=== PATIENT | male | born 1965 | race Caucasian/White ===

== ENCOUNTER 2017-07-31 10:13 | Inpatient (IN) | payer SELFPAY ==
[~2017-07-31] VITALS: Ht 188 cm; Wt 103.0 kg
[~2017-07-31 10:13] MED LIST: 1-ME1LIQ PO; AMLO10TA2 PO; ASCO500C PO; ATOR80TA41 PO; BENA25TA8 PO; GLUCTES27 XX; LEVO75TA3 PO; METF500T PO; MISC1CAP4; MULTCAP14 PO; NAPR250T57 PO; OMEG100037 PO; OMEP20TA PO; STOO100T; VENTAER INH; VITA250L PO
[2017-07-31 10:16] VITALS: BP 173/82; PULSE 102; RESP 17; TEMP 98.2; O2SAT 98
[2017-07-31] MEDS ORDERED: CLINDAMYCIN 600 MG/NS PREMIX 50 ML IV ONE (15:30)
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
--- NOTE | 2017-07-31 16:01 | RADRPT ---
EXAM DATE/TIME: 07/31/2017 15:40 [facility] COMPARISON: No previous studies available for comparison. INDICATIONS : Foot. MEDICAL HISTORY : None. SURGICAL HISTORY : None. ENCOUNTER: Initial ACUITY: 4 - 6 days PAIN SCORE: 5/10 LOCATION: Left Foot. FINDINGS: Three view examination of the left foot demonstrates no soft tissue swelling, dislocation, or fractur e. The tarsal bones appear intact. There are degenerative changes of the first metatarsal phalangea l joint. There are degenerative changes involving the midtarsal bones. There is a mild soft tissue sw elling. CONCLUSION: No acute fracture or joint dislocation. Primary degenerative changes with mild soft tissue swelling. Agus Esparza MD on July 31, 2017 at 15:58 Board Certified Radiologist. This report was verified electronically.
[2017-07-31 16:41] LABS: AUTOMATED NEUTROPHIL # 8.3 TH/MM3 (1.8-7.7); BASOPHIL % 0.2 % (0.0-2.0); EOSINOPHIL # 0.1 TH/MM3 (0-0.4); EOSINOPHIL % 1.1 % (0.0-4.0); HEMATOCRIT 41.1 % (39.0-51.0); HEMOGLOBIN 13.9 GM/DL (13.0-17.0); LYMPH % 10.8 % (9.0-44.0); LYMPHOCYTE # 1.2 TH/MM3 (1.0-4.8); MEAN CELL VOLUME 93.6 FL (80.0-100.0); MEAN CORPUSCULAR HEMOGLOBIN 31.7 PG (27.0-34.0); MEAN CORPUSCULAR HGB CONC 33.9 % (32.0-36.0); MONO % 13.2 % (0.0-8.0); MONOCYTE # 1.5 TH/MM3 (0-0.9); NEUT % 74.7 % (16.0-70.0); PLATELET COUNT 96 TH/MM3 (150-450); RED BLOOD COUNT 4.39 MIL/MM3 (4.50-5.90); RED CELL DISTRIBUTION WIDTH 14.6 % (11.6-17.2); WHITE BLOOD COUNT 11.2 TH/MM3 (4.0-11.0)
[2017-07-31 17:09] LABS: ALKALINE PHOSPHATASE 126 U/L (45-117); TOTAL BILIRUBIN ADULT 1.4 MG/DL (0.2-1.0); TOTAL PROTEIN 8.7 GM/DL (6.4-8.2)
[2017-07-31 17:21] LABS: ALBUMIN 3.6 GM/DL (3.4-5.0); ALT (GPT) 92 U/L (12-78); AST (GOT) 114 U/L (15-37); BICARBONATE 22.6 MEQ/L (21.0-32.0); BLOOD UREA NITROGEN 10 MG/DL (7-18); CALCIUM 8.6 MG/DL (8.5-10.1); CHLORIDE 101 MEQ/L (98-107); CREATININE 1.29 MG/DL (0.60-1.30); GLOMERULAR FILTRATION RATE 58 ML/MIN (>89); GLUCOSE,RANDOM 103 MG/DL (74-106); SODIUM (NA) 134 MEQ/L (136-145)
[2017-07-31 17:28] VITALS: O2SAT 97
[2017-07-31 17:33] VITALS: BP 136/84; PULSE 83; RESP 16; O2SAT 97
[2017-07-31] MEDS ORDERED: GADODIAMIDE PF 287 MG/ML 5 ML VIAL (for RAD MRI) IVCONTRAST ONE (17:59)
[2017-07-31] MEDS ORDERED: NALOXONE HCL 0.4 MG/ML AMP IV PUSH PRN (18:15)
[2017-07-31] MEDS ORDERED: LACTULOSE SYRUP 20 GM/30 ML CUP PO PRN (18:15)
[2017-07-31] MEDS ORDERED: SENNOSIDES 8.6 MG TAB PO PRN (18:15)
[2017-07-31] MEDS ORDERED: ONDANSETRON HCL 4 MG/2 ML VIAL IVP PRN (18:15)
[2017-07-31] MEDS ORDERED: MAGNESIUM HYDROXIDE SUSP 30 ML CUP PO PRN (18:15)
[2017-07-31] MEDS ORDERED: SODIUM CHLORIDE 0.9% FLUSH 10 ML FLUSH IV FLUSH PRN (18:15)
[2017-07-31] MEDS ORDERED: BISACODYL 10 MG SUPP RECTAL PRN (18:15)
[2017-07-31] MEDS: DOCUSATE SODIUM 50 MG/SENNA 8.6 MG TAB PO SCH (20:04)
[2017-07-31] MEDS: SODIUM CHLORIDE 0.9% FLUSH 10 ML FLUSH IV FLUSH SCH (20:05)
[2017-07-31 20:36] VITALS: BP 172/81; PULSE 88; RESP 20; O2SAT 97
[2017-07-31] MEDS ORDERED: DEXTROSE 50% IN WATER 50 ML VIAL(D50) IV PUSH PRN (21:15)
[2017-07-31] MEDS: THIAMINE HCL 100 MG TAB PO SCH (21:15)
[2017-07-31] MEDS ORDERED: LORazepam 2 MG TAB PO PRN (21:15)
[2017-07-31] MEDS ORDERED: GLUCAGON 1 MG/ML VIAL OTHER PRN (21:15)
[2017-07-31] MEDS ORDERED: FLUMAZENIL 0.5 MG/5 ML VIAL IV PUSH PRN (21:15)
[2017-07-31] MEDS ORDERED: LORazepam 2 MG/ML VIAL IV PUSH PRN ×4 (21:15)
[2017-07-31] MEDS ORDERED: LORazepam 1 MG TAB PO PRN (21:15)
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
[2017-07-31] MEDS ORDERED: CLINDAMYCIN 600 MG/NS 100 ML IV SCH ×2 (22:00)
[2017-07-31] MEDS ORDERED: CLINDAMYCIN 600 MG/NS PREMIX 50 ML IV SCH (22:00)
--- NOTE | 2017-07-31 23:25 | RADRPT ---
EXAM DATE/TIME: 07/31/2017 22:01 [facility] COMPARISON: No previous studies available for comparison. INDICATIONS : Osteomyelitis. Left foot ulcer by second and third distal MTPJ. CONTRAST: 20 cc Omniscan (gadodiamide) IV MEDICAL HISTORY : Hypertension. Diabetes mellitus type 2. SURGICAL HISTORY : Right ankle sx, Surgery. to testicles. ENCOUNTER: Initial ACUITY: 3 day PAIN SCORE: 0/10 LOCATION: Left foot ulcer by second and third distal MTPJ. TECHNIQUE: Multiplanar, multisequence MRI examination was performed without contrast and after the intravenous a dministration of gadolinium. FINDINGS: There is soft tissue induration of the forefoot, especially around the second and third metatarsophal angeal joints. Effusions and synovitis with synovial enhancement seen of the second and third metatar sophalangeal joints which certainly could be changes of early septic arthropathy. However, I don't se e any evidence of osteomyelitis of the associated bones. A mildly organized fluid collection is seen in between the next of the second and third metatarsals, measures approximately 9 x 9 mm in greatest transaxial dimension and 18 mm and proximal to distal length. There is moderate to severe osteoarthritis of the first metatarsophalangeal joint and sesamoids CONCLUSION: 1. Soft tissue ulceration plantar to the second and third metatarsophalangeal joints. There is a 9 x 9 x 18 mm abscess in between the distal second and third metatarsals and suspected early septic arthr opathy of the second and third metatarsophalangeal joints. However, no evidence of osteomyelitis at t his time. 2. There is chronic appearing arthropathy of the first metatarsophalangeal joint and sesamoids, also without definite osteomyelitis. Cecilio Salter MD on July 31, 2017 at 23:18 Board Certified Radiologist. This report was verified electronically.
[2017-08-01] VITALS (8 sets, daily range): BP systolic 147–192; BP diastolic 83–100; PULSE 73–88; RESP 16–20; TEMP 97.9–98.9; O2SAT 96–98
[2017-08-01] MEDS: CLINDAMYCIN 600 MG/NS 100 ML IV SCH ×6 (02:11→14:05)
[2017-08-01] MEDS: SODIUM CHLOR 0.9% 1000 ML INJ 1,000 ML IV SCH ×3 (02:12→21:05)
[2017-08-01] MEDS: INSULIN ASPART SUPPLEMENTAL SCALE SQ SCH ×4 (08:00→21:00)
[2017-08-01] MEDS: DOCUSATE SODIUM 50 MG/SENNA 8.6 MG TAB PO SCH ×2 (09:00→21:31)
[2017-08-01] MEDS: SODIUM CHLORIDE 0.9% FLUSH 10 ML FLUSH IV FLUSH SCH ×2 (09:00→21:32)
[2017-08-01] MEDS: THIAMINE HCL 100 MG TAB PO SCH (09:29)
[2017-08-01 09:55] LABS: AUTOMATED NEUTROPHIL # 4.5 TH/MM3 (1.8-7.7); BASOPHIL % 0.1 % (0.0-2.0); EOSINOPHIL # 0.1 TH/MM3 (0-0.4); EOSINOPHIL % 2.2 % (0.0-4.0); HEMATOCRIT 37.5 % (39.0-51.0); HEMOGLOBIN 12.5 GM/DL (13.0-17.0); LYMPH % 18.5 % (9.0-44.0); LYMPHOCYTE # 1.3 TH/MM3 (1.0-4.8); MEAN CELL VOLUME 94.3 FL (80.0-100.0); MEAN CORPUSCULAR HEMOGLOBIN 31.5 PG (27.0-34.0); MEAN CORPUSCULAR HGB CONC 33.4 % (32.0-36.0); MEAN PLATELET VOLUME 8.9 FL (7.0-11.0); MONO % 13.6 % (0.0-8.0); MONOCYTE # 0.9 TH/MM3 (0-0.9); NEUT % 65.6 % (16.0-70.0); PLATELET COUNT 86 TH/MM3 (150-450); RED BLOOD COUNT 3.98 MIL/MM3 (4.50-5.90); RED CELL DISTRIBUTION WIDTH 14.8 % (11.6-17.2); WHITE BLOOD COUNT 6.8 TH/MM3 (4.0-11.0)
[2017-08-01] MEDS ORDERED: INFLUENZA VIRUS VACCINE (QUADRIVALENT) 0.5 ML SYR IM ONE (10:00)
[2017-08-01] MEDS ORDERED: PNEUMOCOCCAL POLYVALENT INJ 25 MCG/0.5 ML SYR IM ONE (10:00)
[2017-08-01 10:22] LABS: ALBUMIN 3.3 GM/DL (3.4-5.0); AST (GOT) 82 U/L (15-37); BICARBONATE 27.4 MEQ/L (21.0-32.0); BLOOD UREA NITROGEN 17 MG/DL (7-18); CALCIUM 8.3 MG/DL (8.5-10.1); CHLORIDE 103 MEQ/L (98-107); CREATININE 1.28 MG/DL (0.60-1.30); GLOMERULAR FILTRATION RATE 59 ML/MIN (>89); GLUCOSE,RANDOM 92 MG/DL (74-106); SODIUM (NA) 138 MEQ/L (136-145)
[2017-08-01 10:24] LABS: ALT (GPT) 74 U/L (12-78)
[2017-08-01 10:25] LABS: ALKALINE PHOSPHATASE 108 U/L (45-117); TOTAL BILIRUBIN ADULT 1.2 MG/DL (0.2-1.0); TOTAL PROTEIN 7.6 GM/DL (6.4-8.2)
[2017-08-01] MEDS ORDERED: VANCOMYCIN INJ 1,000 MG in SODIUM CHLOR 0.9% 250 ML INJ 250 ML IV SCH (16:15)
[2017-08-01] MEDS ORDERED: Vancomycin Consult Pharmacy 1 EA OTHER SCH (16:15)
[2017-08-01 16:19] LABS: HEMOGLOBIN A1C 5.5 % (4.3-6.0)
--- NOTE | 2017-08-01 16:19 | HHI.PR ---
Subjective Remarks Patient says he is feeling well. He has neuropathy and cannot feel his feet. He reports that redness is slightly better than yesterday. Denies any chest pain or shortness of breath Objective Vital Signs Date Time Temp Pulse Resp B/P (MAP) Pulse Ox O2 Delivery O2 Flow Rate FiO2 08/01/17 12:27 98.7 77 18 158/94 (115) 97 08/01/17 08:27 97.9 75 18 147/85 (105) 98 08/01/17 03:57 98.1 80 16 156/84 (108) 98 08/01/17 03:57 98.1 81 16 156/ 98 08/01/17 00:11 98.9 88 20 192/95 (127) 96 07/31/17 20:36 88 20 172/81 (111) 97 07/31/17 19:39 07/31/17 17:33 83 16 136/84 (101) 97 Room Air 07/31/17 17:28 97 Room Air I/O 07/31/17 07/31/17 07/31/17 08/01/17 08/01/17 08/01/17 07:00 15:00 23:00 07:00 15:00 23:00 Intake Total 250 ml 104 ml Output Total 800 ml Balance 250 ml -696 ml Intake Oral 250 ml IV Total 104 ml Output Urine Total 800 ml Result Diagram: 08/01/17 0755 08/01/17 0755 Imaging Last Impressions Foot X-Ray 07/31/17 1529 Signed Impressions: Service Date/Time: July 15:40 - CONCLUSION: No acute fracture or joint dislocation. Primary degenerative changes with mild soft tissue swelling. Agus Esparza MD Foot MRI 07/31/17 0000 Signed Impressions: Service Date/Time: July 22:01 - CONCLUSION: 1. Soft tissue ulceration plantar to the second and third metatarsophalangeal joints. There is a 9 x 9 x 18 mm abscess in between the distal second and third metatarsals and suspected early septic arthropathy of the second and third metatarsophalangeal joints. However, no evidence of osteomyelitis at this time. 2. There is chronic appearing arthropathy of the first metatarsophalangeal joint and sesamoids, also without definite osteomyelitis. Cecilio Salter MD Objective Remarks GENERAL: Sitting up in bed. Appears comfortable. Alert and oriented 3. SKIN: Warm and dry. HEAD: Normocephalic. EYES: No scleral icterus. No injection or drainage. NECK: Supple, trachea midline. No JVD. CARDIOVASCULAR: Regular rate and rhythm without murmurs, gallops, or rubs. RESPIRATORY: Breath sounds equal bilaterally. No accessory muscle use. GASTROINTESTINAL: Abdomen soft, non-tender, nondistended. MUSCULOSKELETAL: No cyanosis, or edema. Right foot with erythema over the dorsum. Small punctate wound over the ball the left foot without surrounding erythema BACK: Nontender without obvious deformity. No CVA tenderness. A/P Assessment and Plan 52-year-old male with a history of diabetes, asthma, gout, hypertension and hypothyroidism presented to the ED with complaints of left foot swelling and redness for the past 3 days. //Cellulitis, left foot Foot x-ray reviewed and shows mild soft tissue swelling -Consult podiatry for assistance -IV antibiotics: Clindamycin -Nothing by mouth after midnight -MRI left foot ordered to rule out osteo, reviewed and shows soft tissue ulceration plantar to the second and third metatarsal joints 9 x 9 x 18 mm abscess in between the distal second and third metatarsals suspected for early septic arthropathy. No evidence of osteo-at this time -IVF for hydration = Evidence of septic arthropathy on MRI. Patient was on clindamycin. Will discontinue clindamycin, start on vancomycin and Zosyn to cover anaerobes, Pseudomonas, MRSA. Pending podiatry consultation. //Transaminitis, likely secondary to alcohol dependence -Cont IVF -CMP in am, trend //Diabetes, chronic -Accu-Cheks with SSI -A1c ordered -Hold home by mouth medication at this time ///Hypertension, chronic -Resumed home medications once med rec is reconciled, monitor vitals -Vasotec when necessary //Hypothyroidism, chronic -Continue home medications once med rec is reconciled -Consult case management for medication assistance //Alcohol dependence/abuse -[employer] protocol -Thiamine daily -Encouraged to quit DVT prophylaxis: SCDs Discharge Planning Pending podiatry evaluation. Brandan Márquez MD Aug 01, 2017 16:19
[2017-08-01] MEDS: ENALAPRILAT 1.25 MG/ML VIAL IV PUSH PRN (16:41)
[2017-08-01] MEDS: PIPERACIL-TAZO 4.5 GM PREMIX 100 ML IV SCH ×2 (17:02→21:33)
[2017-08-01] MEDS: VANCOMYCIN 1,500 MG/NS 500 ML IV SCH ×2 (17:28)
--- NOTE | 2017-08-01 19:54 | MB ---
cc: Jyoti Rolon DPM DATE: 08/01/2017 CHIEF COMPLAINT: Left foot infection. HISTORY OF PRESENT ILLNESS: Mr. Balbuena is a 52-year-old male patient with history of diabetes and diabetic neuropathy. He complains of left foot swelling and redness for approximately 4 days. He believes he may have stepped on a nail in his garage, but is not certain. He is uncontrolled with his diabetes and noncompliant. PAST MEDICAL HISTORY: Includes diabetes, asthma, gout, hypertension, and hypothyroidism. PAST SURGICAL HISTORY: Right ankle ORIF and testicle repair. MEDICATIONS: Please see list. ALLERGIES: NO KNOWN DRUG ALLERGIES. SOCIAL HISTORY: The patient lives at home alone. Recently . Drinks daily, but light and denies any tobacco or drug abuse. PHYSICAL EXAMINATION: VITAL SIGNS: Temperature is 98.6, T-max 98.9, pulse 79, respiratory rate 18, blood pressure 176/96, O2 is 98% O2 on room air. MUSCULOSKELETAL: The patient has palpable, but diminished DP and PT pulses. Capillary refill time less than 3 seconds. Gross sensation severely diminished. The right foot is unremarkable. The left foot is erythematous on the dorsal aspect just distal to the ankle joint. There is a superficial bulla on the dorsal aspect of the foot. On the plantar aspect of the second interspace, there is a puncture wound, which does probe into the second interspace to the dorsal aspect. PROCEDURE: The patient's foot was cleansed and draped in a standard manner and a 15 blade was used to debride the hypertrophic tissue from the plantar aspect of the foot revealing a punctate-appearing wound and a 15 blade was used to slightly elongate the wound both proximal and distal. Hemostats were used to dilate the wound and allow for drainage. There was a slight amount of purulent drainage in the beginning, but despite deeper probing and dilation of the ulceration, minimal purulence was expressed. There did not appear to be any other tracking. There was no exposed bone and no reason to warrant opening the second and third MPJ capsules. The area was flushed with copious amounts of sterile saline and packed with half-inch plain packing and a dressing of 4 x 4s and Nile bandage were applied. LABORATORY DATA: White count is 6.8, down from 11.2 on admission; hemoglobin 12.5; hematocrit 37.5; platelets 86. Sodium 138, potassium 4.1, chloride 103, carbon dioxide 27.4, BUN 17. A1c is pending. Blood cultures negative x 1 day. Wound cultures showed Staph and Gram-negative rods. Cultures and sensitivities are pending. IMAGING STUDIES: X-rays are negative for any gas in the soft tissue or signs of cortical erosion. MRI shows a focal abscess in the second interspace and a questionable septic arthropathy of the second and third MPJs. ASSESSMENT AND PLAN: 1. Left foot abscess, status post bedside incision and drainage. - Continue IV antibiotics. - Daily flush and pack. - If cellulitis does not resolve within the next 48 hours, the patient may require more aggressive intervention. - Final cultures are pending. - Heel weightbearing in a surgical shoe. - We will continue to monitor closely the patient while in-house. Thank you for this consultation. YUNIOR Cunningham/CHRISTINA , 06:39 PM , 07:53 PM LINUS
[2017-08-02 03:28] VITALS: BP 168/94; PULSE 79; RESP 16; TEMP 97.8; O2SAT 97
[2017-08-02] MEDS: PIPERACIL-TAZO 4.5 GM PREMIX 100 ML IV SCH ×3 (05:13→17:00)
[2017-08-02 07:29] VITALS: BP 172/88; PULSE 76; RESP 18; TEMP 98.2; O2SAT 96
[2017-08-02] MEDS: INSULIN ASPART SUPPLEMENTAL SCALE SQ SCH ×4 (08:00→21:00)
[2017-08-02] MEDS: DOCUSATE SODIUM 50 MG/SENNA 8.6 MG TAB PO SCH ×2 (09:00→21:29)
[2017-08-02] MEDS: SODIUM CHLORIDE 0.9% FLUSH 10 ML FLUSH IV FLUSH SCH ×2 (09:00→21:00)
[2017-08-02] MEDS: VANCOMYCIN 1,500 MG/NS 500 ML IV SCH ×4 (09:13→18:00)
[2017-08-02] MEDS: THIAMINE HCL 100 MG TAB PO SCH (09:13)
[2017-08-02] MEDS: SODIUM CHLOR 0.9% 1000 ML INJ 1,000 ML IV SCH (09:14)
[2017-08-02] MEDS: ENALAPRILAT 1.25 MG/ML VIAL IV PUSH PRN ×2 (09:14→18:18)
[2017-08-02 13:21] VITALS: BP 146/72; PULSE 81; RESP 18; TEMP 98.2; O2SAT 95
--- NOTE | 2017-08-02 14:29 | PD.CONS ---
History of Present Illness Service Infectious disease Consult Requested By Dr. Márquez Reason for Consult Evaluate patient with foot infection Primary Care Physician No Primary Care Physician Diagnoses: History of Present Illness Patient seen and examined. Records reviewed. Patient is a 52-year-old male, with known diabetes, and some underlying neuropathy, admitted to the hospital for evaluation of redness and swelling on his left foot. Patient apparently stepped on a school and sustained a wound on the plantar aspect of his foot. He didn't realize it until about several hours later when he noted some blood on the floor when he was in the bathroom. He cleaned it and did some local wound care. The following day he started noticing redness and later on pain. Pain has improved, but the redness got worse as well as the swelling so he patient to the hospital for further evaluation and treatment. He denies any fever or chills or sweats. Patient has a chronic cough related to his asthma. No nausea or vomiting or any urinary complaints. Since admission patient has not been febrile. His initial WBC is 11,000, and it's down to normal. MRI of the foot showed an abscess on the plantar aspect of the foot, and some early changes of possible septic joint at the second and third at the tarsal joint. Podiatry saw the patient and did bedside I and D of the abscess on the foot. There was a wound culture on admission that is growing MSSA and Leclercia. Pain currently is under control. Infectious disease consultation has been requested to evaluate the patient for possible septic joint in the left foot. Review of Systems Constitutional: DENIES: Fever, Chills, Night Sweats Eyes: DENIES: Eye pain Ears, nose, mouth, throat: COMPLAINS OF: Throat pain, DENIES: Nasal discharge, Oral lesions, Hoarseness, Ear Pain, Sinus Pain Respiratory: COMPLAINS OF: Cough, Shortness of breath, DENIES: Sputum production Cardiovascular: DENIES: Chest pain, Palpitations, Syncope, Dyspnea on Exertion Gastrointestinal: DENIES: Abdominal pain, Diarrhea, Nausea, Vomiting, Difficulty Swallowing Genitourinary: DENIES: Urgency, Hematuria, Dysuria Musculoskeletal: COMPLAINS OF: Joint pain, Joint Swelling Integumentary: DENIES: Pruritus, Rash Hematologic/lymphatic: DENIES: Lymphadenopathy Neurologic: DENIES: Localized weakness Psychiatric: DENIES: Hallucinations Past Family Social History Allergies: Coded Allergies: No Known Allergies (Verified Allergy, Unknown, 3/29/18) Past Medical History DM Diabetic neuropathy asthma HTN Hypothyroid Gout Past Surgical History right tib fib repair testicle repair Active Ordered Medications Current Medications Medications (Trade) Dose Ordered Sig/Richard Route Start Time Stop Time Status Last Admin (NS Flush) 2 ml UNSCH PRN IV FLUSH 07/31/17 18:15 (NS Flush) 2 ml BID IV FLUSH 07/31/17 21:00 08/01/17 21:32 (Zofran Inj) 4 mg Q6H PRN IVP 07/31/17 18:15 (Narcan Inj) 0.4 mg UNSCH PRN IV PUSH 07/31/17 18:15 (Rivka-Colace) 1 tab BID PO 07/31/17 21:00 08/01/17 21:31 (Milk Of Magnesia Liq) 30 ml Q12H PRN PO 07/31/17 18:15 (Senokot) 17.2 mg Q12H PRN PO 07/31/17 18:15 (Dulcolax Supp) 10 mg DAILY PRN RECTAL 07/31/17 18:15 (Lactulose Liq) 30 ml DAILY PRN PO 07/31/17 18:15 (D50w (Vial) Inj) 50 ml UNSCH PRN IV PUSH 07/31/17 21:15 (Glucagon Inj) 1 mg UNSCH PRN OTHER 07/31/17 21:15 (NovoLOG SUPPLEMENTAL SCALE) 1 ACHS SLIDING SCALE SQ 08/01/17 08:00 (Romazicon Inj) 0.2 mg Q1M PRN IV PUSH 07/31/17 21:15 (Ativan) 1 mg Q4H PRN PO 07/31/17 21:15 (Ativan Inj) 1 mg Q4H PRN IV PUSH 07/31/17 21:15 (Ativan) 2 mg Q2H PRN PO 07/31/17 21:15 (Ativan Inj) 2 mg Q2H PRN IV PUSH 07/31/17 21:15 (Ativan Inj) 2 mg Q1H PRN IV PUSH 07/31/17 21:15 (Ativan Inj) 2 mg Q15M PRN IV PUSH 07/31/17 21:15 (Vitamin B1) 100 mg DAILY PO 07/31/17 21:15 3/31/18 09:13 Sodium Chloride 1,000 ml @ 84 mls/hr [id number] IV 07/31/17 21:15 08/02/17 09:14 (Vasotec Inj) 1.25 mg Q6H PRN IV PUSH 08/01/17 00:00 08/02/17 09:14 Piperacillin Sod/ Tazobactam Sod 100 ml @ 200 mls/hr Q6H IV 08/01/17 17:00 08/02/17 11:48 Pharmacy Profile Note 0 ml @ 0 mls/hr UNSCH OTHER 08/01/17 16:15 Vancomycin HCl 1500 mg/Sodium Chloride 515 ml @ 257.5 mls/ hr Q12H IV 08/01/17 18:00 08/02/17 09:13 Miscellaneous Information SPECIFIC LAB TO BE [facility]IRA... ONCE ONCE .XX 08/03/17 05:45 08/03/17 05:46 (Ultram) 50 mg Q4H PRN PO 08/01/17 20:30 Family History Father has asthma Social History Tobacco use: Denies Alcohol use: 3-4 beers a day Illicit drug use: Denies Physical Exam Vital Signs Vital Signs Date Time Temp Pulse Resp B/P (MAP) Pulse Ox O2 Delivery O2 Flow Rate FiO2 08/02/17 13:21 98.2 81 18 146/72 (96) 95 08/02/17 07:29 98.2 76 18 172/88 (116) 96 08/02/17 03:28 97.8 79 16 168/94 (118) 97 08/01/17 23:25 98.9 73 20 161/88 (112) 98 08/01/17 21:00 98.1 75 20 160/83 (108) 98 08/01/17 17:55 176/96 (122) 08/01/17 16:30 98.6 79 18 177/100 (125) 98 Physical Exam GENERAL: Patient is a well-nourished, well-developed male, awake and alert, not in respiratory distress. SKIN: Cool and dry. No generalized rash, no ecchymoses and no evidence of embolic lesions. HEAD: Atraumatic. Normocephalic. No temporal wasting, or tenderness. EYES: [place] conjunctiva. No petechia or hemorrhage. Pupils equal, round and reactive to light. Extraocular movements full and intact. No scleral icterus. No injection or drainage. EARS, NOSE AND THROAT: Nose without bleeding or purulent nasal discharge. No sinus tenderness. Mucous membranes pink and moist. No oral lesions noted. No exudate. No oral thrush. NECK: Trachea midline. Supple and not tender, no meningeal signs CARDIOVASCULAR: Regular rate and rhythm. No murmurs, rubs or gallops heard RESPIRATORY: Clear to auscultation. Breath sounds equal bilaterally. No rales , wheezing or rhonchi ABDOMEN: Soft, non-tender, nondistended. Bowel sounds present and normoactive. No guarding. No rebound. No organomegaly. EXTREMITIES: No clubbing, cyanosis, or edema. There is a dry intact dressing to his L foot and distal leg. No lymphangitis seen in upper leg and thigh. No calf tenderness. Well perfused and warm. NEUROLOGICAL: Awake and alert. Cranial nerves grossly intact. Motor grossly within normal limits. PSYCHIATRIC: Normal affect, calm and cooperative. LINE: No evidence of infection Laboratory Date/Time Source Procedure Growth Status 07/31/17 15:52 Blood Peripheral Aerobic Blood Culture - Preliminary NO GROWTH IN 2 DAYS Resulted 07/31/17 15:52 Blood Peripheral Anaerobic Blood Culture - Preliminary NO GROWTH IN 2 DAYS Resulted 07/31/17 15:47 Wound Foot Gram Stain - Final Complete 07/31/17 15:47 Wound Culture - Final Staphylococcus Aureus Leclercia Adecarboxylata Complete Result Diagram: 08/01/17 0755 08/01/17 0755 Imaging RADIOLOGY STUDIES/FILMS REVIEWED Last Impressions Foot X-Ray 07/31/17 1529 Signed Impressions: Service Date/Time: July 15:40 - CONCLUSION: No acute fracture or joint dislocation. Primary degenerative changes with mild soft tissue swelling. Agus Esparza MD Foot MRI 07/31/17 0000 Signed Impressions: Service Date/Time: July 22:01 - CONCLUSION: 1. Soft tissue ulceration plantar to the second and third metatarsophalangeal joints. There is a 9 x 9 x 18 mm abscess in between the distal second and third metatarsals and suspected early septic arthropathy of the second and third metatarsophalangeal joints. However, no evidence of osteomyelitis at this time. 2. There is chronic appearing arthropathy of the first metatarsophalangeal joint and sesamoids, also without definite osteomyelitis. Cecilio Salter MD Assessment and Plan Assessment and Plan IMPRESSION L foot infection, with cellulitis and plantar abscess, S/P I and D - ?septic joint, early 2nd and 3rd MT DM Mild elevation LFT RECOMMENDATION Change Abx to Rocephin IV amd po Flagyl Podiatry to change dressing today - will examine foot when ok with podiatry Follow new C/S (?more C/S from bedside debridement?) Monitor progress Will determine course of RX once work-up completed I will follow along with you Thank you for this consultation Discussed Condition With Explained plan to the patient Chantal Castillo MD Aug 02, 2017 14:29
[2017-08-02 17:32] VITALS: BP 172/92; PULSE 77; RESP 18; TEMP 98.5; O2SAT 96
--- NOTE | 2017-08-02 19:49 | HHI.PR ---
Subjective Remarks Patient seen this morning around 9 AM. Says he is feeling all right. Continues to deny pain. Objective Vital Signs Date Time Temp Pulse Resp B/P (MAP) Pulse Ox O2 Delivery O2 Flow Rate FiO2 08/02/17 17:32 98.5 77 18 172/92 (118) 96 08/02/17 13:21 98.2 81 18 146/72 (96) 95 08/02/17 07:29 98.2 76 18 172/88 (116) 96 08/02/17 03:28 97.8 79 16 168/94 (118) 97 08/01/17 23:25 98.9 73 20 161/88 (112) 98 08/01/17 21:00 98.1 75 20 160/83 (108) 98 I/O 08/01/17 08/01/17 08/01/17 08/02/17 08/02/17 08/02/17 07:00 15:00 23:00 07:00 15:00 23:00 Intake Total 250 ml 104 ml 104 ml Output Total 800 ml Balance 250 ml -696 ml 104 ml Intake Oral 250 ml IV Total 104 ml 104 ml Output Urine Total 800 ml Result Diagram: 08/01/17 0755 08/01/17 0755 Objective Remarks GENERAL: Sitting up in bed. Appears comfortable. Alert and oriented 3. SKIN: Warm and dry. HEAD: Normocephalic. EYES: No scleral icterus. No injection or drainage. NECK: Supple, trachea midline. No JVD. CARDIOVASCULAR: Regular rate and rhythm without murmurs, gallops, or rubs. RESPIRATORY: Breath sounds equal bilaterally. No accessory muscle use. GASTROINTESTINAL: Abdomen soft, non-tender, nondistended. MUSCULOSKELETAL: No cyanosis, or edema. Right foot dressed. Dressing clean dry and intact. BACK: Nontender without obvious deformity. No CVA tenderness. A/P Assessment and Plan 52-year-old male with a history of diabetes, asthma, gout, hypertension and hypothyroidism presented to the ED with complaints of left foot swelling and redness for the past 3 days. //Cellulitis, left foot Foot x-ray reviewed and shows mild soft tissue swelling -Consult podiatry for assistance -IV antibiotics: Clindamycin -Nothing by mouth after midnight -MRI left foot ordered to rule out osteo, reviewed and shows soft tissue ulceration plantar to the second and third metatarsal joints 9 x 9 x 18 mm abscess in between the distal second and third metatarsals suspected for early septic arthropathy. No evidence of osteo-at this time -IVF for hydration = Evidence of septic arthropathy on MRI. Patient was on clindamycin. Will discontinue clindamycin, start on vancomycin and Zosyn to cover anaerobes, Pseudomonas, MRSA. Pending podiatry consultation. = Wound cultures reviewed. Sensitive to ceftriaxone. We'll start ceftriaxone and Flagyl as per ID recommendations. Podiatry following. Appreciate assistance. //Transaminitis, likely secondary to alcohol dependence -Cont IVF -CMP in am, trend //Diabetes, chronic -Accu-Cheks with SSI -A1c ordered -Hold home by mouth medication at this time ///Hypertension, chronic -Resumed home medications once med rec is reconciled, monitor vitals -Vasotec when necessary = Blood pressure elevated. Start amlodipine 10 mg daily. //Hypothyroidism, chronic -Continue home medications once med rec is reconciled -Consult case management for medication assistance //Alcohol dependence/abuse -[facility] protocol -Thiamine daily -Encouraged to quit DVT prophylaxis: SCDs Discharge Planning Pending podiatry clearance. Brandan Márquez MD Aug 02, 2017 19:49
[2017-08-02 20:26] VITALS: BP 197/90; PULSE 77; RESP 20; TEMP 97.7; O2SAT 97
[2017-08-02] MEDS: cefTRIAXone INJ 2,000 MG in SODIUM CHLORIDE 0.9% INJ 100 ML IV SCH (21:29)
[2017-08-02 23:49] VITALS: BP 174/98; PULSE 86; RESP 16; TEMP 97.8; O2SAT 98
[2017-08-03] MEDS: metroNIDAZOLE 500 MG TAB PO SCH ×4 (01:22→18:00)
[2017-08-03 04:41] VITALS: BP 162/82; PULSE 88; RESP 20; TEMP 97.9; O2SAT 96
[2017-08-03] MEDS ORDERED: PHARMACY ORDERED LAB ONE (05:45)
[2017-08-03] MEDS: INSULIN ASPART SUPPLEMENTAL SCALE SQ SCH ×4 (08:00→21:00)
[2017-08-03] MEDS: DOCUSATE SODIUM 50 MG/SENNA 8.6 MG TAB PO SCH ×2 (08:01→21:40)
[2017-08-03] MEDS: SODIUM CHLORIDE 0.9% FLUSH 10 ML FLUSH IV FLUSH SCH ×2 (08:02→21:00)
[2017-08-03] MEDS: THIAMINE HCL 100 MG TAB PO SCH (08:02)
[2017-08-03 08:30] VITALS: BP 179/88; PULSE 85; RESP 18; TEMP 98; O2SAT 96
[2017-08-03 08:30] LABS: AUTOMATED NEUTROPHIL # 4.6 TH/MM3 (1.8-7.7); BASOPHIL % 0.5 % (0.0-2.0); EOSINOPHIL # 0.1 TH/MM3 (0-0.4); EOSINOPHIL % 2.3 % (0.0-4.0); HEMATOCRIT 34.3 % (39.0-51.0); HEMOGLOBIN 11.7 GM/DL (13.0-17.0); LYMPH % 11.3 % (9.0-44.0); LYMPHOCYTE # 0.7 TH/MM3 (1.0-4.8); MEAN CELL VOLUME 93.6 FL (80.0-100.0); MEAN CORPUSCULAR HEMOGLOBIN 31.8 PG (27.0-34.0); MEAN PLATELET VOLUME 8.5 FL (7.0-11.0); MONO % 13.4 % (0.0-8.0); MONOCYTE # 0.9 TH/MM3 (0-0.9); NEUT % 72.5 % (16.0-70.0); PLATELET COUNT 88 TH/MM3 (150-450); RED BLOOD COUNT 3.67 MIL/MM3 (4.50-5.90); RED CELL DISTRIBUTION WIDTH 14.7 % (11.6-17.2); WHITE BLOOD COUNT 6.4 TH/MM3 (4.0-11.0)
[2017-08-03] MEDS: ENALAPRILAT 1.25 MG/ML VIAL IV PUSH PRN (08:33)
[2017-08-03 08:56] LABS: ALBUMIN 2.9 GM/DL (3.4-5.0); BICARBONATE 20.7 MEQ/L (21.0-32.0); CALCIUM 8.2 MG/DL (8.5-10.1); CREATININE 1.25 MG/DL (0.60-1.30); PHOSPHORUS 2.6 MG/DL (2.5-4.9)
--- NOTE | 2017-08-03 10:16 | HHI.PR ---
Subjective Remarks Says he is feeling well. Continues to deny any pain. Denies any chest pain or shortness of breath. Objective Vital Signs Date Time Temp Pulse Resp B/P (MAP) Pulse Ox O2 Delivery O2 Flow Rate FiO2 08/03/17 08:30 98.0 85 18 179/88 (118) 96 08/03/17 04:41 97.9 88 20 162/82 (108) 96 08/02/17 23:49 97.8 86 16 174/98 (123) 98 08/02/17 20:26 97.7 77 20 197/90 (125) 97 08/02/17 17:32 98.5 77 18 172/92 (118) 96 08/02/17 13:21 98.2 81 18 146/72 (96) 95 Result Diagram: 08/03/17 0733 08/03/17 0733 Objective Remarks GENERAL: Sitting up in bed. Appears comfortable. Alert and oriented 3. no change on exam SKIN: Warm and dry. HEAD: Normocephalic. EYES: No scleral icterus. No injection or drainage. NECK: Supple, trachea midline. No JVD. CARDIOVASCULAR: Regular rate and rhythm without murmurs, gallops, or rubs. RESPIRATORY: Breath sounds equal bilaterally. No accessory muscle use. GASTROINTESTINAL: Abdomen soft, non-tender, nondistended. MUSCULOSKELETAL: No cyanosis, or edema. Right foot dressed. Dressing clean dry and intact. BACK: Nontender without obvious deformity. No CVA tenderness. A/P Assessment and Plan 52-year-old male with a history of diabetes, asthma, gout, hypertension and hypothyroidism presented to the ED with complaints of left foot swelling and redness for the past 3 days. //Cellulitis, left foot Foot x-ray reviewed and shows mild soft tissue swelling -Consult podiatry for assistance -IV antibiotics: Clindamycin -Nothing by mouth after midnight -MRI left foot ordered to rule out osteo, reviewed and shows soft tissue ulceration plantar to the second and third metatarsal joints 9 x 9 x 18 mm abscess in between the distal second and third metatarsals suspected for early septic arthropathy. No evidence of osteo-at this time -IVF for hydration = Evidence of septic arthropathy on MRI. Patient was on clindamycin. Will discontinue clindamycin, start on vancomycin and Zosyn to cover anaerobes, Pseudomonas, MRSA. Pending podiatry consultation. = Wound cultures reviewed. Sensitive to ceftriaxone. We'll start ceftriaxone and Flagyl as per ID recommendations. Podiatry following. Appreciate assistance. = Continue antibiotics. Podiatry following. Appreciate assistance. //Transaminitis, likely secondary to alcohol dependence -Cont IVF -Labs improved. Discontinue alcohol as outpatient //Diabetes, chronic -Accu-Cheks with SSI -A1c ordered -Hold home by mouth medication at this time ///Hypertension, chronic -Resumed home medications once med rec is reconciled, monitor vitals -Vasotec when necessary = Blood pressure elevated. Start amlodipine 10 mg daily. = Blood pressure still elevated. Start clonidine. //Hypothyroidism, chronic -Continue home medications once med rec is reconciled -Consult case management for medication assistance //Alcohol dependence/abuse -[facility] protocol -Thiamine daily -Encouraged to quit DVT prophylaxis: SCDs Discharge Planning Pending podiatry clearance. Brandan Márquez MD Aug 03, 2017 10:16
--- NOTE | 2017-08-03 10:47 | PD.POD ---
Subjective Podiatric Problems Left foot infection, s/p bedside I&D on 08/01/17. Pt denies any n/v/f/h/c/sob/ pain. Pain score: 0 Past Med/Surg/Social History Past Medical History HEENT: DENIES HX OF: Cataracts, Glaucoma, Recurrent ear infections, Recurrent sinusitis, Other HEENT history Endocrine: REPORTS HX OF: Diabetes mellitus, Hypothyroidism, DENIES HX OF: Graves disease, Hyperthyroidism, Other endocrine history Respiratory: DENIES HX OF: Allergies/hay fever, Asthma, COPD, CPAP use, Sleep apnea, Other respiratory history Cardiovascular: REPORTS HX OF: Hyperlipidemia, Hypertension, DENIES HX OF: Abdominal aortic aneurysm, Angina, Atrial fibrillation, Cardiac arrhythmias, Coronary artery disease, Deep venous thrombosis, Heart failure, Heart valve disease, Myocardial infarction, Peripheral vascular dz, Other CV history Gastrointestinal: DENIES HX OF: Colitis, GERD, Irritable bowel syndrome, Liver disease, Pancreatitis, Peptic ulcer disease, Other GI history Genitourinary - male: DENIES HX OF: Benign prost. hyperplasia, Erectile dysfunction, Prostatitis, Testicular problems, Undescended testicle Musculoskeletal: REPORTS HX OF: Fractures (right ankle fracture), DENIES HX OF : Fibromyalgia, Gout, Osteoarthritis, Osteoporosis, Rheumatoid arthritis, Other musculoskeletal hx Cancer/Hematology: DENIES HX OF: Anemia, Bladder Cancer, Blood cancer, Brain cancer, Breast cancer, Colorectal cancer, Endocrine cancer, Eye cancer, GI cancer, cancer, Kidney cancer, Leukemia, Liver cancer, Lung cancer, Lymphoma , Musculoskeletal cancer, Neurologic cancer, Oral cancer, Skin cancer, Stomach cancer, Thyroid cancer, Other cancer/hematology Cancer - male: DENIES HX OF: Prostate cancer, Testicular cancer Infectious disease: DENIES HX OF: AIDS, Chickenpox, Hepatitis, HIV, Measles, MRSA, Mumps, Polio, Positive PPD, Rheumatic fever, Rubella, Syphilis, Tuberculosis, Vanc-resistant enterococc, Other inf disease history Integumentary: DENIES HX OF: Acne, Eczema, Psoriasis, Other integumentary hx Neurologic: DENIES HX OF: ADHD, Autism, Dementia, Developmental delay, Headaches, Multiple sclerosis, Parkinson disease, Peripheral neuropathy, Restless leg syndrome, Seizures, Stroke, Transient ischemic attack, Other neurologic history Psychiatric: DENIES HX OF: Anorexia nervosa, Anxiety, Bipolar disorder, Bulimia , Depression, Schizophrenia, Other psychiatric history Genetic/metabolic: DENIES HX OF: Cystic fibrosis, Down syndrome, Other genetic history, Other metabolic history Events: DENIES HX OF: Anaphylaxis, Gunshot wound, Motor vehicle accident, Other events Disabilities: DENIES HX OF: Hearing deficit, Vision deficit, Hemiparesis, Paraplegia, Quadriplegia, Other disabilities Past Surgical History HEENT: DENIES HX OF: Cataract extraction, Dental surgery, Laryngectomy, Tonsillectomy, Other head surgery, Other eye surgery, Other ear surgery, Other nasal surgery, Other throat surgery Endocrine: DENIES HX OF: Parathyroidectomy, Thyroid surgery, Other endocrine surgery Respiratory: DENIES HX OF: Bronchoscopy, Lobectomy, Other chest surgery Cardiovascular: DENIES HX OF: Angiogram, Angioplasty, CABG surgery, Carotid endarterectomy, Coronary stent, Heart transplant, Pacemaker, Valve replacement, Other cardiac surgery Gastrointestinal: DENIES HX OF: Appendectomy, Cholecystectomy, Colectomy, subtotal, Colectomy, total, Gastric bypass, Hernia repair, Splenectomy, Other GI surgery Genitourinary: DENIES HX OF: Bladder surgery, Kidney stone extraction, Nephrectomy, Other surgery Genitourinary - male: DENIES HX OF: Prostatectomy, TURP, Vasectomy Musculoskeletal: REPORTS HX OF: Other musculoskeletal srg (right ankle surgery) Integumentary: DENIES HX OF: Skin cancer removal, Other integumentary surg Neurologic: DENIES HX OF: Craniotomy, Spinal surgery, Other neurologic surgery Breast: DENIES HX OF: Breast biopsy, Lumpectomy, Mastectomy, bilateral, Mastectomy, left, Mastectomy, right, Other breast surgery Social History Smoking Status: Never Smoker Objective Vital Signs Vital Signs Date Time Temp Pulse Resp B/P (MAP) Pulse Ox O2 Delivery O2 Flow Rate FiO2 08/03/17 08:30 98.0 85 18 179/88 (118) 96 08/03/17 04:41 97.9 88 20 162/82 (108) 96 08/02/17 23:49 97.8 86 16 174/98 (123) 98 08/02/17 20:26 97.7 77 20 197/90 (125) 97 08/02/17 17:32 98.5 77 18 172/92 (118) 96 08/02/17 13:21 98.2 81 18 146/72 (96) 95 Coded Allergies: No Known Allergies (Verified Allergy, Unknown, 07/31/17) Physical Exam Remarks Left foot dorsal erythema decreased in intensity, but remaining to the level just distal to the ankle. Dorsal partial thickness ulcer 1cmx 1cmx 0. Plantar second interspace puncture wound 7mm x 7mm x 15mm, slight serous drainage, no malodor, no exposed bone or tendon. Assessment & Plan A/P 1) Left foot abscess, s/p I&D -wound cx not obtained at bedside as previous cxs had been obtained and pt had been on abx for > 24 hours at time of I&D -daily packing -cont IV abx -improvement is seen but minimal, will re evaluate tomorrow, possible need for surgical intervention if improvement remains slow Jyoti Rolon DPM Aug 03, 2017 10:47
[2017-08-03 13:37] VITALS: BP 130/62; PULSE 80; RESP 20; TEMP 98; O2SAT 97
[2017-08-03] MEDS: cloNIDine HCL 0.1 MG TAB PO SCH ×2 (13:39→21:40)
--- NOTE | 2017-08-03 14:59 | HHI.IDPN ---
Subjective Subjective Remarks Patient is a 52-year-old male, with known diabetes, and some underlying neuropathy, admitted to the hospital for evaluation of redness and swelling on his left foot. Patient apparently stepped on a school and sustained a wound on the plantar aspect of his foot. He didn't realize it until about several hours later when he noted some blood on the floor when he was in the bathroom. He cleaned it and did some local wound care. The following day he started noticing redness and later on pain. Pain has improved, but the redness got worse as well as the swelling so he patient to the hospital for further evaluation and treatment. He denies any fever or chills or sweats. Patient has a chronic cough related to his asthma. No nausea or vomiting or any urinary complaints. Since admission patient has not been febrile. His initial WBC is 11,000, and it's down to normal. MRI of the foot showed an abscess on the plantar aspect of the foot, and some early changes of possible septic joint at the second and third at the tarsal joint. Podiatry saw the patient and did bedside I and D of the abscess on the foot. There was a wound culture on admission that is growing MSSA and Leclercia. Pain currently is under control. Infectious disease consultation has been requested to evaluate the patient for possible septic joint in the left foot. Notes reviewed Temps ok Podiatry notes reviewed WBC normal To be revaluated by podiatry if further intervention needed BC negative Wound C/S MSSA and Leclercia Antibiotics Rocephin Flagyl Current Medications Medications (Trade) Dose Ordered Sig/Richard Route Start Time Stop Time Status Last Admin (NS Flush) 2 ml UNSCH PRN IV FLUSH 07/31/17 18:15 (NS Flush) 2 ml BID IV FLUSH 07/31/17 21:00 08/03/17 08:02 (Zofran Inj) 4 mg Q6H PRN IVP 07/31/17 18:15 (Narcan Inj) 0.4 mg UNSCH PRN IV PUSH 07/31/17 18:15 (Rivka-Colace) 1 tab BID PO 07/31/17 21:00 08/02/17 21:29 (Milk Of Magnesia Liq) 30 ml Q12H PRN PO 07/31/17 18:15 (Senokot) 17.2 mg Q12H PRN PO 07/31/17 18:15 (Dulcolax Supp) 10 mg DAILY PRN RECTAL 07/31/17 18:15 (Lactulose Liq) 30 ml DAILY PRN PO 07/31/17 18:15 (D50w (Vial) Inj) 50 ml UNSCH PRN IV PUSH 07/31/17 21:15 (Glucagon Inj) 1 mg UNSCH PRN OTHER 07/31/17 21:15 (NovoLOG SUPPLEMENTAL SCALE) 1 ACHS SLIDING SCALE SQ 08/01/17 08:00 (Romazicon Inj) 0.2 mg Q1M PRN IV PUSH 07/31/17 21:15 (Ativan) 1 mg Q4H PRN PO 07/31/17 21:15 (Ativan Inj) 1 mg Q4H PRN IV PUSH 07/31/17 21:15 (Ativan) 2 mg Q2H PRN PO 07/31/17 21:15 (Ativan Inj) 2 mg Q2H PRN IV PUSH 07/31/17 21:15 (Ativan Inj) 2 mg Q1H PRN IV PUSH 07/31/17 21:15 (Ativan Inj) 2 mg Q15M PRN IV PUSH 07/31/17 21:15 (Vitamin B1) 100 mg DAILY PO 07/31/17 21:15 08/03/17 08:02 (Vasotec Inj) 1.25 mg Q6H PRN IV PUSH 08/01/17 00:00 08/03/17 08:33 (Ultram) 50 mg Q4H PRN PO 08/01/17 20:30 Ceftriaxone Sodium 2000 mg/ Sodium Chloride 100 ml @ 200 mls/hr Q24H IV 08/02/17 21:00 08/02/17 21:29 (Flagyl) 500 mg Q6HR PO 08/03/17 00:00 08/03/17 13:39 (Norvasc) 10 mg DAILY PO 08/03/17 09:00 08/03/17 08:02 (Catapres) 0.1 mg Q8HR PO 08/03/17 14:00 08/03/17 13:39 Lines PIV with no evidence of infection Past Medical History DM Diabetic neuropathy asthma HTN Hypothyroid Gout Past Surgical History right tib fib repair testicle repair Allergies: Coded Allergies: No Known Allergies (Verified Allergy, Unknown, 07/31/17) Objective . Vital Signs Date Time Temp Pulse Resp B/P (MAP) Pulse Ox O2 Delivery O2 Flow Rate FiO2 08/03/17 13:37 98.0 80 20 130/62 (84) 97 08/03/17 08:30 98.0 85 18 179/88 (118) 96 08/03/17 04:41 97.9 88 20 162/82 (108) 96 08/02/17 23:49 97.8 86 16 174/98 (123) 98 08/02/17 20:26 97.7 77 20 197/90 (125) 97 08/02/17 17:32 98.5 77 18 172/92 (118) 96 08/03/17 08/03/17 08/04/17 15:00 23:00 07:00 Output Total 300 ml Balance -300 ml Output Urine Total 300 ml . Laboratory Tests Test 08/03/17 07:33 White Blood Count 6.4 TH/MM3 Red Blood Count 3.67 MIL/MM3 Hemoglobin 11.7 GM/DL Hematocrit 34.3 % Mean Corpuscular Volume 93.6 FL Mean Corpuscular Hemoglobin 31.8 PG Mean Corpuscular Hemoglobin Concent 34.0 % Red Cell Distribution Width 14.7 % Platelet Count 88 TH/MM3 Mean Platelet Volume 8.5 FL Neutrophils (%) (Auto) 72.5 % Lymphocytes (%) (Auto) 11.3 % Monocytes (%) (Auto) 13.4 % Eosinophils (%) (Auto) 2.3 % Basophils (%) (Auto) 0.5 % Neutrophils # (Auto) 4.6 TH/MM3 Lymphocytes # (Auto) 0.7 TH/MM3 Monocytes # (Auto) 0.9 TH/MM3 Eosinophils # (Auto) 0.1 TH/MM3 Basophils # (Auto) 0.0 TH/MM3 CBC Comment AUTO DIFF Differential Comment AUTO DIFF CONFIRMED Platelet Estimate LOW Platelet Morphology Comment NORMAL Red Cell Morphology Comment NORMAL Laboratory Tests Test 08/03/17 07:33 Blood Urea Nitrogen 12 MG/DL Creatinine 1.25 MG/DL Random Glucose 131 MG/DL Albumin 2.9 GM/DL Calcium Level 8.2 MG/DL Phosphorus Level 2.6 MG/DL Magnesium Level 2.0 MG/DL Sodium Level 139 MEQ/L Potassium Level 3.8 MEQ/L Chloride Level 109 MEQ/L Carbon Dioxide Level 20.7 MEQ/L Anion Gap 9 MEQ/L Estimat Glomerular Filtration Rate 60 ML/MIN Microbiology Date/Time Source Procedure Growth Status 07/31/17 15:52 Blood Peripheral Aerobic Blood Culture - Preliminary NO GROWTH IN 3 DAYS Resulted 07/31/17 15:52 Blood Peripheral Anaerobic Blood Culture - Preliminary NO GROWTH IN 3 DAYS Resulted 07/31/17 15:47 Blood Peripheral Aerobic Blood Culture - Preliminary NO GROWTH IN 3 DAYS Resulted 07/31/17 15:47 Blood Peripheral Anaerobic Blood Culture - Preliminary NO GROWTH IN 3 DAYS Resulted 07/31/17 15:47 Wound Foot Gram Stain - Final Complete 07/31/17 15:47 Wound Culture - Final Staphylococcus Aureus Leclercia Adecarboxylata Complete Imaging Last Impressions Foot X-Ray 07/31/17 1529 Signed Impressions: Service Date/Time: July 15:40 - CONCLUSION: No acute fracture or joint dislocation. Primary degenerative changes with mild soft tissue swelling. Agus Esparza MD Foot MRI 07/31/17 0000 Signed Impressions: Service Date/Time: July 22:01 - CONCLUSION: 1. Soft tissue ulceration plantar to the second and third metatarsophalangeal joints. There is a 9 x 9 x 18 mm abscess in between the distal second and third metatarsals and suspected early septic arthropathy of the second and third metatarsophalangeal joints. However, no evidence of osteomyelitis at this time. 2. There is chronic appearing arthropathy of the first metatarsophalangeal joint and sesamoids, also without definite osteomyelitis. Cecilio Salter MD Physical Exam GENERAL: awake and alert, not in respiratory distress. SKIN: Cool and dry. No generalized rash HEAD: Atraumatic. Normocephalic. No temporal wasting, or tenderness. EYES: [place] conjunctiva. No petechia or hemorrhage. Pupils equal, round and reactive to light. Extraocular movements full and intact. No scleral icterus. No injection or drainage. EARS, NOSE AND THROAT: Nose without bleeding or purulent nasal discharge. No sinus tenderness. Mucous membranes pink and moist. No oral lesions noted. No exudate. No oral thrush. NECK: Trachea midline. Supple and not tender, no meningeal signs CARDIOVASCULAR: Regular rate and rhythm. No murmurs, rubs or gallops heard RESPIRATORY: Clear to auscultation. Breath sounds equal bilaterally. No rales , wheezing or rhonchi ABDOMEN: Soft, non-tender, nondistended. Bowel sounds present and normoactive. No guarding. No rebound. No organomegaly. EXTREMITIES: No clubbing, cyanosis, or edema. There is a dry intact dressing to his L foot and distal leg. No lymphangitis seen in upper leg and thigh. No calf tenderness. Well perfused and warm. NEUROLOGICAL: Awake and alert. Cranial nerves grossly intact. Motor grossly within normal limits. PSYCHIATRIC: Normal affect, calm and cooperative. LINE: No evidence of infection Assessment & Plan Remarks IMPRESSION L foot infection, with cellulitis and plantar abscess, S/P I and D - ?septic joint, early 2nd and 3rd MT DM Mild elevation LFT RECOMMENDATION Continue Rocephin IV and po Flagyl Podiatry to change dressing today - will examine foot when ok with podiatry Monitor progress Check baseline ESR and CRP Will determine course of RX once work-up completed Chantal Castillo MD Aug 03, 2017 14:59
[2017-08-03 20:00] VITALS: BP 175/97; PULSE 80; RESP 22; TEMP 97.6; O2SAT 99
[2017-08-03] MEDS: cefTRIAXone INJ 2,000 MG in SODIUM CHLORIDE 0.9% INJ 100 ML IV SCH (21:40)
[2017-08-04] VITALS: BP 144/78; PULSE 75; RESP 20; TEMP 98.4; O2SAT 96
[2017-08-04 04:00] VITALS: BP 164/81; PULSE 77; RESP 20; TEMP 97.8; O2SAT 96
[2017-08-04] MEDS: cloNIDine HCL 0.1 MG TAB PO SCH ×3 (06:20→23:13)
[2017-08-04] MEDS: metroNIDAZOLE 500 MG TAB PO SCH ×4 (06:20→19:21)
[2017-08-04] MEDS: INSULIN ASPART SUPPLEMENTAL SCALE SQ SCH ×4 (08:00→21:00)
[2017-08-04 08:52] VITALS: BP 138/81; PULSE 72; RESP 20; TEMP 97.4; O2SAT 97
[2017-08-04] MEDS: SODIUM CHLORIDE 0.9% FLUSH 10 ML FLUSH IV FLUSH SCH ×2 (09:56→23:07)
[2017-08-04] MEDS: THIAMINE HCL 100 MG TAB PO SCH (09:56)
[2017-08-04] MEDS: DOCUSATE SODIUM 50 MG/SENNA 8.6 MG TAB PO SCH ×2 (09:56→21:00)
[2017-08-04 11:06] VITALS: BP 129/88; PULSE 78; RESP 20; TEMP 97.8; O2SAT 96
--- NOTE | 2017-08-04 13:15 | HHI.IDPN ---
Subjective Subjective Remarks Patient is a 52-year-old male, with known diabetes, and some underlying neuropathy, admitted to the hospital for evaluation of redness and swelling on his left foot. Patient apparently stepped on a school and sustained a wound on the plantar aspect of his foot. He didn't realize it until about several hours later when he noted some blood on the floor when he was in the bathroom. He cleaned it and did some local wound care. The following day he started noticing redness and later on pain. Pain has improved, but the redness got worse as well as the swelling so he patient to the hospital for further evaluation and treatment. He denies any fever or chills or sweats. Patient has a chronic cough related to his asthma. No nausea or vomiting or any urinary complaints. Since admission patient has not been febrile. His initial WBC is 11,000, and it's down to normal. MRI of the foot showed an abscess on the plantar aspect of the foot, and some early changes of possible septic joint at the second and third at the tarsal joint. Podiatry saw the patient and did bedside I and D of the abscess on the foot. There was a wound culture on admission that is growing MSSA and Leclercia. Pain currently is under control. Infectious disease consultation has been requested to evaluate the patient for possible septic joint in the left foot. Notes reviewed Temps ok Pain L foot better C/O gout L knee WBC normal To be revaluated by podiatry if further intervention needed BC negative Wound C/S MSSA and Leclercia Antibiotics Rocephin Flagyl Current Medications Medications (Trade) Dose Ordered Sig/Richard Route Start Time Stop Time Status Last Admin (NS Flush) 2 ml UNSCH PRN IV FLUSH 07/31/17 18:15 (NS Flush) 2 ml BID IV FLUSH 07/31/17 21:00 08/04/17 09:56 (Zofran Inj) 4 mg Q6H PRN IVP 07/31/17 18:15 (Narcan Inj) 0.4 mg UNSCH PRN IV PUSH 07/31/17 18:15 (Rivka-Colace) 1 tab BID PO 07/31/17 21:00 08/04/17 09:56 (Milk Of Magnesia Liq) 30 ml Q12H PRN PO 07/31/17 18:15 (Senokot) 17.2 mg Q12H PRN PO 07/31/17 18:15 (Dulcolax Supp) 10 mg DAILY PRN RECTAL 07/31/17 18:15 (Lactulose Liq) 30 ml DAILY PRN PO 07/31/17 18:15 (D50w (Vial) Inj) 50 ml UNSCH PRN IV PUSH 07/31/17 21:15 (Glucagon Inj) 1 mg UNSCH PRN OTHER 07/31/17 21:15 (NovoLOG SUPPLEMENTAL SCALE) 1 ACHS SLIDING SCALE SQ 08/01/17 08:00 (Romazicon Inj) 0.2 mg Q1M PRN IV PUSH 07/31/17 21:15 (Ativan) 1 mg Q4H PRN PO 07/31/17 21:15 (Ativan Inj) 1 mg Q4H PRN IV PUSH 07/31/17 21:15 (Ativan) 2 mg Q2H PRN PO 07/31/17 21:15 (Ativan Inj) 2 mg Q2H PRN IV PUSH 07/31/17 21:15 (Ativan Inj) 2 mg Q1H PRN IV PUSH 07/31/17 21:15 (Ativan Inj) 2 mg Q15M PRN IV PUSH 07/31/17 21:15 (Vitamin B1) 100 mg DAILY PO 07/31/17 21:15 08/04/17 09:56 (Vasotec Inj) 1.25 mg Q6H PRN IV PUSH 08/01/17 00:00 08/03/17 08:33 (Ultram) 50 mg Q4H PRN PO 08/01/17 20:30 Ceftriaxone Sodium 2000 mg/ Sodium Chloride 100 ml @ 200 mls/hr Q24H IV 08/02/17 21:00 08/03/17 21:40 (Flagyl) 500 mg Q6HR PO 08/03/17 00:00 08/04/17 13:02 (Norvasc) 10 mg DAILY PO 08/03/17 09:00 08/04/17 09:56 (Catapres) 0.1 mg Q8HR PO 08/03/17 14:00 08/04/17 13:03 Lines PIV with no evidence of infection Past Medical History DM Diabetic neuropathy asthma HTN Hypothyroid Gout Past Surgical History right tib fib repair testicle repair Allergies: Coded Allergies: No Known Allergies (Verified Allergy, Unknown, 07/31/17) Objective . Vital Signs Date Time Temp Pulse Resp B/P (MAP) Pulse Ox O2 Delivery O2 Flow Rate FiO2 08/04/17 11:06 97.8 78 20 129/88 (102) 96 08/04/17 08:52 97.4 72 20 138/81 (100) 97 08/04/17 04:00 97.8 77 20 164/81 (108) 96 08/04/17 00:00 98.4 75 20 144/78 (100) 96 08/03/17 20:00 97.6 80 22 175/97 (123) 99 08/03/17 13:37 98.0 80 20 130/62 (84) 97 08/04/17 08/04/17 08/05/17 15:00 23:00 07:00 Intake Total 240 ml Balance 240 ml Intake Oral 240 ml . Laboratory Tests Test 08/03/17 07:33 08/04/17 05:17 White Blood Count 6.4 TH/MM3 Red Blood Count 3.67 MIL/MM3 Hemoglobin 11.7 GM/DL Hematocrit 34.3 % Mean Corpuscular Volume 93.6 FL Mean Corpuscular Hemoglobin 31.8 PG Mean Corpuscular Hemoglobin Concent 34.0 % Red Cell Distribution Width 14.7 % Platelet Count 88 TH/MM3 Mean Platelet Volume 8.5 FL Neutrophils (%) (Auto) 72.5 % Lymphocytes (%) (Auto) 11.3 % Monocytes (%) (Auto) 13.4 % Eosinophils (%) (Auto) 2.3 % Basophils (%) (Auto) 0.5 % Neutrophils # (Auto) 4.6 TH/MM3 Lymphocytes # (Auto) 0.7 TH/MM3 Monocytes # (Auto) 0.9 TH/MM3 Eosinophils # (Auto) 0.1 TH/MM3 Basophils # (Auto) 0.0 TH/MM3 CBC Comment AUTO DIFF Differential Comment AUTO DIFF CONFIRMED Platelet Estimate LOW Platelet Morphology Comment NORMAL Red Cell Morphology Comment NORMAL Erythrocyte Sedimentation Rate 62 mm/hr Laboratory Tests Test 08/03/17 07:33 08/04/17 05:17 Blood Urea Nitrogen 12 MG/DL Creatinine 1.25 MG/DL Random Glucose 131 MG/DL Albumin 2.9 GM/DL Calcium Level 8.2 MG/DL Phosphorus Level 2.6 MG/DL Magnesium Level 2.0 MG/DL Sodium Level 139 MEQ/L Potassium Level 3.8 MEQ/L Chloride Level 109 MEQ/L Carbon Dioxide Level 20.7 MEQ/L Anion Gap 9 MEQ/L Estimat Glomerular Filtration Rate 60 ML/MIN C-Reactive Protein 14.00 MG/DL Imaging Last Impressions Foot X-Ray 07/31/17 1529 Signed Impressions: Service Date/Time: July 15:40 - CONCLUSION: No acute fracture or joint dislocation. Primary degenerative changes with mild soft tissue swelling. Agus Esparza MD Foot MRI 07/31/17 0000 Signed Impressions: Service Date/Time: July 22:01 - CONCLUSION: 1. Soft tissue ulceration plantar to the second and third metatarsophalangeal joints. There is a 9 x 9 x 18 mm abscess in between the distal second and third metatarsals and suspected early septic arthropathy of the second and third metatarsophalangeal joints. However, no evidence of osteomyelitis at this time. 2. There is chronic appearing arthropathy of the first metatarsophalangeal joint and sesamoids, also without definite osteomyelitis. Cecilio Salter MD Physical Exam GENERAL: awake and alert, not in respiratory distress. SKIN: Cool and dry. No generalized rash HEAD: Atraumatic. Normocephalic. No temporal wasting, or tenderness. EYES: [place] conjunctiva. No petechia or hemorrhage. Pupils equal, round and reactive to light. Extraocular movements full and intact. No scleral icterus. No injection or drainage. EARS, NOSE AND THROAT: Nose without bleeding or purulent nasal discharge. No sinus tenderness. Mucous membranes pink and moist. No oral lesions noted. No exudate. No oral thrush. NECK: Trachea midline. Supple and not tender, no meningeal signs CARDIOVASCULAR: Regular rate and rhythm. No murmurs, rubs or gallops heard RESPIRATORY: Clear to auscultation. Breath sounds equal bilaterally. No rales , wheezing or rhonchi ABDOMEN: Soft, non-tender, nondistended. Bowel sounds present and normoactive. No guarding. No rebound. No organomegaly. EXTREMITIES: No clubbing, cyanosis, or edema. L foot has erythema on dorsum of foot to ankle, swelling mostly distally. Has open wound at plantar aspect with packing has serosanguineous drainage on dressing. L 2nd toe swollen. No lymphangitis seen in upper leg and thigh. No calf tenderness. Well perfused and warm. NEUROLOGICAL: Non-focal PSYCHIATRIC: Normal affect, calm and cooperative. LINE: No evidence of infection Assessment & Plan Remarks IMPRESSION L foot infection, with cellulitis and plantar abscess, S/P I and D - ?septic joint, early 2nd and 3rd MT DM Mild elevation LFT RECOMMENDATION Continue Rocephin IV and po Flagyl prob need more surgery and evaluate for septic joint 2nd and 3rd MTP Monitor progress Will determine course of RX once work-up completed D/W RN Explained plan to the patient Dr Nataliia Vargas covering in my absence 08/05-08/10 Chantal Castillo MD Aug 04, 2017 13:15
--- NOTE | 2017-08-04 13:57 | HHI.PR ---
Subjective Remarks Patient again says he is feeling well. Denies any chest pain or shortness of breath. Denies any nausea or vomiting. Denies constipation or diarrhea. Objective Vital Signs Date Time Temp Pulse Resp B/P (MAP) Pulse Ox O2 Delivery O2 Flow Rate FiO2 08/04/17 11:06 97.8 78 20 129/88 (102) 96 08/04/17 08:52 97.4 72 20 138/81 (100) 97 08/04/17 04:00 97.8 77 20 164/81 (108) 96 08/04/17 00:00 98.4 75 20 144/78 (100) 96 08/03/17 20:00 97.6 80 22 175/97 (123) 99 I/O 08/03/17 08/03/17 08/03/17 08/04/17 08/04/17 08/04/17 07:00 15:00 23:00 07:00 15:00 23:00 Intake Total 240 ml Output Total 300 ml Balance -300 ml 240 ml Intake Oral 240 ml Output Urine Total 300 ml # Voids 2 Result Diagram: 08/03/17 0733 08/03/17732 Objective Remarks GENERAL: Sitting up in bed. Appears comfortable. Alert and oriented 3. no change on exam SKIN: Warm and dry. HEAD: Normocephalic. EYES: No scleral icterus. No injection or drainage. NECK: Supple, trachea midline. No JVD. CARDIOVASCULAR: Regular rate and rhythm without murmurs, gallops, or rubs. RESPIRATORY: Breath sounds equal bilaterally. No accessory muscle use. GASTROINTESTINAL: Abdomen soft, non-tender, nondistended. MUSCULOSKELETAL: No cyanosis, or edema. Right foot dressed. Dressing continues clean dry and intact. BACK: Nontender without obvious deformity. No CVA tenderness. A/P Assessment and Plan 52-year-old male with a history of diabetes, asthma, gout, hypertension and hypothyroidism presented to the ED with complaints of left foot swelling and redness for the past 3 days. //Cellulitis, left foot Foot x-ray reviewed and shows mild soft tissue swelling -Consult podiatry for assistance -IV antibiotics: Clindamycin -Nothing by mouth after midnight -MRI left foot ordered to rule out osteo, reviewed and shows soft tissue ulceration plantar to the second and third metatarsal joints 9 x 9 x 18 mm abscess in between the distal second and third metatarsals suspected for early septic arthropathy. No evidence of osteo-at this time -IVF for hydration = Evidence of septic arthropathy on MRI. Patient was on clindamycin. Will discontinue clindamycin, start on vancomycin and Zosyn to cover anaerobes, Pseudomonas, MRSA. Pending podiatry consultation. = Wound cultures reviewed. Sensitive to ceftriaxone. We'll start ceftriaxone and Flagyl as per ID recommendations. Podiatry following. Appreciate assistance. = Continue antibiotics. Podiatry following. Appreciate assistance. //Transaminitis, likely secondary to alcohol dependence -Cont IVF -Labs improved. Discontinue alcohol as outpatient //Diabetes, chronic -Accu-Cheks with SSI -A1c ordered -Hold home by mouth medication at this time ///Hypertension, chronic -Resumed home medications once med rec is reconciled, monitor vitals -Vasotec when necessary = Blood pressure elevated. Start amlodipine 10 mg daily. = Blood pressure still elevated. Start clonidine. //Hypothyroidism, chronic -Continue home medications once med rec is reconciled -Consult case management for medication assistance //Thrombus cytopenia. Platelets 88. Appears stable. Likely secondary to alcohol dependence. Recheck today. //Alcohol dependence/abuse -CIMN protocol -Thiamine daily -Encouraged to quit DVT prophylaxis: SCDs Discharge Planning Pending podiatry clearance. Brandan Márquez MD Aug 04, 2017 13:57
[2017-08-04 15:07] VITALS: BP 123/88; PULSE 73; RESP 20; TEMP 97.8; O2SAT 95
[2017-08-04 16:02] LABS: BASOPHIL % 0.5 % (0.0-2.0); EOSINOPHIL # 0.2 TH/MM3 (0-0.4); EOSINOPHIL % 2.3 % (0.0-4.0); HEMATOCRIT 34.8 % (39.0-51.0); HEMOGLOBIN 11.8 GM/DL (13.0-17.0); LYMPH % 12.5 % (9.0-44.0); LYMPHOCYTE # 0.9 TH/MM3 (1.0-4.8); MEAN CELL VOLUME 92.9 FL (80.0-100.0); MEAN CORPUSCULAR HEMOGLOBIN 31.4 PG (27.0-34.0); MEAN CORPUSCULAR HGB CONC 33.8 % (32.0-36.0); MEAN PLATELET VOLUME 8.6 FL (7.0-11.0); MONO % 17.3 % (0.0-8.0); MONOCYTE # 1.3 TH/MM3 (0-0.9); NEUT % 67.4 % (16.0-70.0); PLATELET COUNT 122 TH/MM3 (150-450); RED BLOOD COUNT 3.75 MIL/MM3 (4.50-5.90); RED CELL DISTRIBUTION WIDTH 14.4 % (11.6-17.2); WHITE BLOOD COUNT 7.4 TH/MM3 (4.0-11.0)
[2017-08-04 16:25] LABS: BICARBONATE 19.8 MEQ/L (21.0-32.0); CALCIUM 8.9 MG/DL (8.5-10.1); CREATININE 1.17 MG/DL (0.60-1.30)
--- NOTE | 2017-08-04 18:18 | PD.POD ---
Subjective Pain score: 2 Remarks Unsure if improved Past Med/Surg/Social History Past Medical History HEENT: DENIES HX OF: Cataracts, Glaucoma, Recurrent ear infections, Recurrent sinusitis, Other HEENT history Endocrine: REPORTS HX OF: Diabetes mellitus, Hypothyroidism, DENIES HX OF: Graves disease, Hyperthyroidism, Other endocrine history Respiratory: DENIES HX OF: Allergies/hay fever, Asthma, COPD, CPAP use, Sleep apnea, Other respiratory history Cardiovascular: REPORTS HX OF: Hyperlipidemia, Hypertension, DENIES HX OF: Abdominal aortic aneurysm, Angina, Atrial fibrillation, Cardiac arrhythmias, Coronary artery disease, Deep venous thrombosis, Heart failure, Heart valve disease, Myocardial infarction, Peripheral vascular dz, Other CV history Gastrointestinal: DENIES HX OF: Colitis, GERD, Irritable bowel syndrome, Liver disease, Pancreatitis, Peptic ulcer disease, Other GI history Genitourinary - male: DENIES HX OF: Benign prost. hyperplasia, Erectile dysfunction, Prostatitis, Testicular problems, Undescended testicle Musculoskeletal: REPORTS HX OF: Fractures (right ankle fracture), DENIES HX OF : Fibromyalgia, Gout, Osteoarthritis, Osteoporosis, Rheumatoid arthritis, Other musculoskeletal hx Cancer/Hematology: DENIES HX OF: Anemia, Bladder Cancer, Blood cancer, Brain cancer, Breast cancer, Colorectal cancer, Endocrine cancer, Eye cancer, GI cancer, cancer, Kidney cancer, Leukemia, Liver cancer, Lung cancer, Lymphoma , Musculoskeletal cancer, Neurologic cancer, Oral cancer, Skin cancer, Stomach cancer, Thyroid cancer, Other cancer/hematology Cancer - male: DENIES HX OF: Prostate cancer, Testicular cancer Infectious disease: DENIES HX OF: AIDS, Chickenpox, Hepatitis, HIV, Measles, MRSA, Mumps, Polio, Positive PPD, Rheumatic fever, Rubella, Syphilis, Tuberculosis, Vanc-resistant enterococc, Other inf disease history Integumentary: DENIES HX OF: Acne, Eczema, Psoriasis, Other integumentary hx Neurologic: DENIES HX OF: ADHD, Autism, Dementia, Developmental delay, Headaches, Multiple sclerosis, Parkinson disease, Peripheral neuropathy, Restless leg syndrome, Seizures, Stroke, Transient ischemic attack, Other neurologic history Psychiatric: DENIES HX OF: Anorexia nervosa, Anxiety, Bipolar disorder, Bulimia , Depression, Schizophrenia, Other psychiatric history Genetic/metabolic: DENIES HX OF: Cystic fibrosis, Down syndrome, Other genetic history, Other metabolic history Events: DENIES HX OF: Anaphylaxis, Gunshot wound, Motor vehicle accident, Other events Disabilities: DENIES HX OF: Hearing deficit, Vision deficit, Hemiparesis, Paraplegia, Quadriplegia, Other disabilities Past Surgical History HEENT: DENIES HX OF: Cataract extraction, Dental surgery, Laryngectomy, Tonsillectomy, Other head surgery, Other eye surgery, Other ear surgery, Other nasal surgery, Other throat surgery Endocrine: DENIES HX OF: Parathyroidectomy, Thyroid surgery, Other endocrine surgery Respiratory: DENIES HX OF: Bronchoscopy, Lobectomy, Other chest surgery Cardiovascular: DENIES HX OF: Angiogram, Angioplasty, CABG surgery, Carotid endarterectomy, Coronary stent, Heart transplant, Pacemaker, Valve replacement, Other cardiac surgery Gastrointestinal: DENIES HX OF: Appendectomy, Cholecystectomy, Colectomy, subtotal, Colectomy, total, Gastric bypass, Hernia repair, Splenectomy, Other GI surgery Genitourinary: DENIES HX OF: Bladder surgery, Kidney stone extraction, Nephrectomy, Other surgery Genitourinary - male: DENIES HX OF: Prostatectomy, TURP, Vasectomy Musculoskeletal: REPORTS HX OF: Other musculoskeletal srg (right ankle surgery) Integumentary: DENIES HX OF: Skin cancer removal, Other integumentary surg Neurologic: DENIES HX OF: Craniotomy, Spinal surgery, Other neurologic surgery Breast: DENIES HX OF: Breast biopsy, Lumpectomy, Mastectomy, bilateral, Mastectomy, left, Mastectomy, right, Other breast surgery Social History Smoking Status: Never Smoker Objective Vital Signs Vital Signs Date Time Temp Pulse Resp B/P (MAP) Pulse Ox O2 Delivery O2 Flow Rate FiO2 08/04/17 15:07 97.8 73 20 123/88 (100) 95 08/04/17 11:06 97.8 78 20 129/88 (102) 96 08/04/17 08:52 97.4 72 20 138/81 (100) 97 08/04/17 04:00 97.8 77 20 164/81 (108) 96 08/04/17 00:00 98.4 75 20 144/78 (100) 96 08/03/17 20:00 97.6 80 22 175/97 (123) 99 Coded Allergies: No Known Allergies (Verified Allergy, Unknown, 07/31/17) Medications and IVs Administered Medications Medications (Trade) Dose Ordered Sig/Richard Route PRN Reason Start Time Stop Time Status Last Admin Dose Admin Sodium Chloride (NS Flush) 2 ml BID IV FLUSH 07/31/17 21:00 08/04/17 09:56 Senna/Docusate Sodium (Rivka-Colace) 1 tab BID PO 07/31/17 21:00 08/04/17 09:56 Thiamine HCl (Vitamin B1) 100 mg DAILY PO 07/31/17 21:15 08/04/17 09:56 Enalaprilat (Vasotec Inj) 1.25 mg Q6H PRN IV PUSH SBP>160, DBP>90 08/01/17 00:00 08/03/17 08:33 Ceftriaxone Sodium 2000 mg/ Sodium Chloride 100 ml @ 200 mls/hr Q24H IV 08/02/17 21:00 08/03/17 21:40 Metronidazole (Flagyl) 500 mg Q6HR PO 08/03/17 00:00 08/04/17 13:02 Amlodipine Besylate (Norvasc) 10 mg DAILY PO 08/03/17 09:00 08/04/17 09:56 Clonidine (Catapres) 0.1 mg Q8HR PO 08/03/17 14:00 08/04/17 13:03 Other Results Laboratory Tests Test 08/03/17 07:33 08/04/17 05:17 08/04/17 14:50 White Blood Count 6.4 TH/MM3 7.4 TH/MM3 Red Blood Count 3.67 MIL/MM3 3.75 MIL/MM3 Hemoglobin 11.7 GM/DL 11.8 GM/DL Hematocrit 34.3 % 34.8 % Mean Corpuscular Volume 93.6 FL 92.9 FL Mean Corpuscular Hemoglobin 31.8 PG 31.4 PG Mean Corpuscular Hemoglobin Concent 34.0 % 33.8 % Red Cell Distribution Width 14.7 % 14.4 % Platelet Count 88 TH/MM3 122 TH/MM3 Mean Platelet Volume 8.5 FL 8.6 FL Neutrophils (%) (Auto) 72.5 % 67.4 % Lymphocytes (%) (Auto) 11.3 % 12.5 % Monocytes (%) (Auto) 13.4 % 17.3 % Eosinophils (%) (Auto) 2.3 % 2.3 % Basophils (%) (Auto) 0.5 % 0.5 % Neutrophils # (Auto) 4.6 TH/MM3 5.0 TH/MM3 Lymphocytes # (Auto) 0.7 TH/MM3 0.9 TH/MM3 Monocytes # (Auto) 0.9 TH/MM3 1.3 TH/MM3 Eosinophils # (Auto) 0.1 TH/MM3 0.2 TH/MM3 Basophils # (Auto) 0.0 TH/MM3 0.0 TH/MM3 CBC Comment AUTO DIFF DIFF FINAL Differential Comment AUTO DIFF CONFIRMED Platelet Estimate LOW Platelet Morphology Comment NORMAL Red Cell Morphology Comment NORMAL Erythrocyte Sedimentation Rate 62 mm/hr Laboratory Tests Test 08/03/17 07:33 08/04/17 05:17 08/04/17 14:50 Blood Urea Nitrogen 12 MG/DL 12 MG/DL Creatinine 1.25 MG/DL 1.17 MG/DL Random Glucose 131 MG/DL 106 MG/DL Albumin 2.9 GM/DL Calcium Level 8.2 MG/DL 8.9 MG/DL Phosphorus Level 2.6 MG/DL Magnesium Level 2.0 MG/DL Sodium Level 139 MEQ/L 137 MEQ/L Potassium Level 3.8 MEQ/L 3.7 MEQ/L Chloride Level 109 MEQ/L 107 MEQ/L Carbon Dioxide Level 20.7 MEQ/L 19.8 MEQ/L Anion Gap 9 MEQ/L 10 MEQ/L Estimat Glomerular Filtration Rate 60 ML/MIN 65 ML/MIN C-Reactive Protein 14.00 MG/DL Name: REDDY STRINGER Age/Sex:52/M Attend Dr: Brandan Márquez MD Unit#: [id number] Status: ADM Katelin Location: [facility] G82- P Re07/31/17 : 1965 SPECIMEN #: [id number] CONNIE: 07/31/17 1547 STATUS: COMP RECD: 07/31/[address]: Mahsa Downey MD PT ID: '[email or web address] BOX/PROVIDER ID: SOURCE: WOUND COPY TO: Rosana Sotelo MD SPDESC: FOOT NO PRIMARY CARE PHYSICIAN BILL CLIENT: ORDERED: WOUND CULTURE QUERIES: Method of Collection: SWAB ACT WKST: GS 08/01/17 #1 WOUNDS 08/01/17 #1 Procedure Result Verified Site GRAM STAIN Final 08/01/17-821 RARE WBC FEW GRAM POSITIVE COCCI IN PAIRS WOUND CULTURE Final 08/02/17-910 HEAVY GROWTH STAPHYLOCOCCUS AUREUS LIGHT GROWTH LECLERCIA ADECARBOXYLATA NO ANAEROBES ISOLATED CONTINUED ON NEXT PAGE RUN DATE: 08/02/17 [facility] LIVE PAGE 2 RUN TIME: [id number] [facility] [address] DOCTOR REPORT PATIENT Patient: REDDY STRINGER #[id number] (Continued) Specimen: [id number] Collected: 07/31/17-1546 Received: 07/31/17-1620 (Continued) Procedure Result Verified Site WOUND CULTURE Final (continued) 08/02/17 [facility]AN GARCIA [facility] M.I.C. RX --------- --- --------- --- PENICILLIN G >8 [place] AMPICILLIN <8 S AMOXICILLIN/K CLAVULANATE <8/4 S PIPERCILLIN/TAZOBACTAM <16 S AMPICILLIN/SULBACTAM <8/4 S OXACILLIN <0.25 S CEFAZOLIN <4 S 4 S CEFUROXIME <4 S CEFTRIAXONE <4 S <1 S CEFTAZIDIME <1 S CEFEPIME <2 S AZTREONAM <4 S ERTAPENEM <0.5 S IMIPENEM <1 S GENTAMICIN <1 S <4 S TOBRAMYCIN <4 S ERYTHROMYCIN >4 R CLINDAMYCIN 0.5 S DAPTOMYCIN 1 S VANCOMYCIN 2 S TETRACYCLINE <1 S <4 S CHLORAMPHENICOL <8 S TRIMETH/SULFA <0.5/9.5 S <2/38 S LEVOFLOXACIN <0.5 S <2 S LINEZOLID 4 S Physical Exam General appearance: comfortable Nutritional status: normal Orientation: alert and oriented x3 Details Left foot examined: Plantar puncture wound probes deep to the second MPJ mild serous drainage, dorsal foot redness with early bulla formation noted, appears to be somewhat improved. No crepitus or instability upon range of motion of digits forefoot hindfoot or ankle. Pedal pulses are palpable sensation is decreased Assessment & Plan A/P Left foot puncture wound with abscess status post bedside I&D. Given the extent of the infection and the lack of significant improvement I am recommending formal incision and drainage in the operative setting Risks and benefits of surgery explained, the patient may need long-term IV antibiotics, he may suffer from deeper infection at a later date meaning more surgery. Patient ordered n.p.o. consent ordered for surgery tomorrow will take deep cultures to aid in antibiotic treatment. Questions answered consent signed. Reggie Wild DPM Aug 04, 2017 18:18
[2017-08-04] MEDS ORDERED: ACETAMINOPHEN 325 MG TAB PO PRN (19:30)
[2017-08-04 21:35] VITALS: BP 152/77; PULSE 72; RESP 16; TEMP 98; O2SAT 97
[2017-08-04] MEDS: traMADol HCL 50 MG TAB PO PRN (23:14)
[2017-08-04] MEDS: cefTRIAXone INJ 2,000 MG in SODIUM CHLORIDE 0.9% INJ 100 ML IV SCH (23:15)
[2017-08-05] VITALS (9 sets, daily range): BP systolic 123–163; BP diastolic 60–98; PULSE 66–82; RESP 17–20; TEMP 97.3–98.7; O2SAT 91–98
[2017-08-05] MEDS: metroNIDAZOLE 500 MG TAB PO SCH ×5 (01:38→17:36)
[2017-08-05] MEDS: cloNIDine HCL 0.1 MG TAB PO SCH ×4 (06:04→21:40)
[2017-08-05] MEDS: traMADol HCL 50 MG TAB PO PRN ×2 (06:14→22:49)
[2017-08-05 07:10] LABS: AUTOMATED NEUTROPHIL # 5.3 TH/MM3 (1.8-7.7); BASOPHIL % 0.5 % (0.0-2.0); EOSINOPHIL # 0.2 TH/MM3 (0-0.4); EOSINOPHIL % 2.2 % (0.0-4.0); HEMATOCRIT 35.7 % (39.0-51.0); LYMPH % 14.7 % (9.0-44.0); LYMPHOCYTE # 1.2 TH/MM3 (1.0-4.8); MEAN CELL VOLUME 92.6 FL (80.0-100.0); MEAN CORPUSCULAR HEMOGLOBIN 31.2 PG (27.0-34.0); MEAN CORPUSCULAR HGB CONC 33.7 % (32.0-36.0); MEAN PLATELET VOLUME 8.6 FL (7.0-11.0); MONO % 15.8 % (0.0-8.0); MONOCYTE # 1.2 TH/MM3 (0-0.9); NEUT % 66.8 % (16.0-70.0); PLATELET COUNT 138 TH/MM3 (150-450); RED BLOOD COUNT 3.86 MIL/MM3 (4.50-5.90); RED CELL DISTRIBUTION WIDTH 14.2 % (11.6-17.2); WHITE BLOOD COUNT 7.9 TH/MM3 (4.0-11.0)
[2017-08-05 07:39] LABS: ALBUMIN 2.8 GM/DL (3.4-5.0); BICARBONATE 19.7 MEQ/L (21.0-32.0); CALCIUM 8.7 MG/DL (8.5-10.1); CREATININE 1.23 MG/DL (0.60-1.30); MAGNESIUM 1.8 MG/DL (1.5-2.5)
[2017-08-05 07:50] LABS: PHOSPHORUS 3.8 MG/DL (2.5-4.9)
[2017-08-05] MEDS: INSULIN ASPART SUPPLEMENTAL SCALE SQ SCH ×4 (08:00→21:52)
[2017-08-05] MEDS: DOCUSATE SODIUM 50 MG/SENNA 8.6 MG TAB PO SCH ×2 (09:05→21:51)
[2017-08-05] MEDS: THIAMINE HCL 100 MG TAB PO SCH (09:05)
[2017-08-05] MEDS: SODIUM CHLORIDE 0.9% FLUSH 10 ML FLUSH IV FLUSH SCH ×2 (09:06→21:40)
--- NOTE | 2017-08-05 10:57 | HHI.PR ---
Subjective Remarks Says he is feeling well. Does report pain in the right knee secondary to gout. Asking if he can get steroid injections to help with the gout in the right knee. We will start IV fluids. Objective Vital Signs Date Time Temp Pulse Resp B/P (MAP) Pulse Ox O2 Delivery O2 Flow Rate FiO2 08/05/17 08:01 98.0 71 18 123/76 (92) 98 08/05/17 06:02 74 18 140/79 (99) 93 08/05/17 04:49 97.9 80 17 163/98 (119) 95 08/05/17 01:24 68 18 146/77 (100) 96 08/05/17 00:28 98.0 67 17 160/78 (105) 97 08/04/17 21:35 98.0 72 16 152/77 (102) 97 08/04/17 15:07 97.8 73 20 123/88 (100) 95 08/04/17 11:06 97.8 78 20 129/88 (102) 96 I/O 08/04/17 08/04/17 08/04/17 08/05/17 08/05/17 08/05/17 07:00 15:00 23:00 07:00 15:00 23:00 Intake Total 240 ml Output Total 250 ml Balance 240 ml -250 ml Intake Oral 240 ml Output Urine Total 250 ml # Voids 2 Result Diagram: 08/05/17 0600 08/05/17 0535 Objective Remarks GENERAL: Sitting up in bed. Appears comfortable. Alert and oriented 3. SKIN: Warm and dry. HEAD: Normocephalic. EYES: No scleral icterus. No injection or drainage. NECK: Supple, trachea midline. No JVD. CARDIOVASCULAR: Regular rate and rhythm without murmurs, gallops, or rubs. RESPIRATORY: Breath sounds equal bilaterally. No accessory muscle use. GASTROINTESTINAL: Abdomen soft, non-tender, nondistended. MUSCULOSKELETAL: No cyanosis, or edema. Right foot dressed. Dressing continues clean dry and intact. Right knee without any effusion. No redness. BACK: Nontender without obvious deformity. No CVA tenderness. A/P Assessment and Plan 52-year-old male with a history of diabetes, asthma, gout, hypertension and hypothyroidism presented to the ED with complaints of left foot swelling and redness for the past 3 days. //Cellulitis, left foot Foot x-ray reviewed and shows mild soft tissue swelling -Consult podiatry for assistance -IV antibiotics: Clindamycin -Nothing by mouth after midnight -MRI left foot ordered to rule out osteo, reviewed and shows soft tissue ulceration plantar to the second and third metatarsal joints 9 x 9 x 18 mm abscess in between the distal second and third metatarsals suspected for early septic arthropathy. No evidence of osteo-at this time -IVF for hydration = Evidence of septic arthropathy on MRI. Patient was on clindamycin. Will discontinue clindamycin, start on vancomycin and Zosyn to cover anaerobes, Pseudomonas, MRSA. Pending podiatry consultation. = Wound cultures reviewed. Sensitive to ceftriaxone. We'll start ceftriaxone and Flagyl as per ID recommendations. Podiatry following. Appreciate assistance. = Continue antibiotics. Podiatry following. Appreciate assistance. = For surgery today. She podiatry assistance. //Transaminitis, likely secondary to alcohol dependence -Cont IVF -Labs improved. Discontinue alcohol as outpatient //Diabetes, chronic -Accu-Cheks with SSI -A1c ordered -Hold home by mouth medication at this time ///Hypertension, chronic -Resumed home medications once med rec is reconciled, monitor vitals -Vasotec when necessary = Blood pressure elevated. Start amlodipine 10 mg daily. = Blood pressure still elevated. Start clonidine. = 4/. Blood pressure improved. Continue current regimen. //Hypothyroidism, chronic -Continue home medications once med rec is reconciled -Consult case management for medication assistance //Thrombus cytopenia. Platelets 88. Appears stable. Likely secondary to alcohol dependence. Recheck today. //Alcohol dependence/abuse -[facility] protocol -Thiamine daily -Encouraged to quit DVT prophylaxis: SCDs Discharge Planning Pending podiatry clearance. Brandan Márquez MD Aug 05, 2017 10:57
[2017-08-05] MEDS ORDERED: BUPIVACAINE HCL PF 0.5% 30 ML VIAL ONE (11:44)
[2017-08-05] MEDS ORDERED: NEOMYCIN/POLYMYXIN 1 ML G.U. IRRIGANT ONE (11:48)
[2017-08-05] MEDS ORDERED: ePHEDrine/NS 25 MG/5 ML SYRINGE IV ONE (12:00)
[2017-08-05] MEDS ORDERED: LIDOCAINE HCL 1% PF 5 ML SYRINGE OTHER ONE (12:00)
[2017-08-05] MEDS ORDERED: GLYCOPYRROLATE 1 MG/5 ML SYRINGE IV PUSH ONE (12:00)
[2017-08-05] MEDS ORDERED: PROPOFOL 200 MG/20 ML AMP IV ONE (12:00)
[2017-08-05] MEDS ORDERED: ROCURONIUM INJ 50 MG/5 ML SYRINGE IV PUSH ONE (12:00)
[2017-08-05] MEDS ORDERED: DEXAMETHASONE SOD PHOS 4 MG/ML VIAL IV ONE (12:00)
[2017-08-05] MEDS ORDERED: PHENYLEPH/NS 1000 MCG/10 ML SYR IV ONE (12:00)
[2017-08-05] MEDS ORDERED: ONDANSETRON HCL 4 MG/2 ML VIAL IV ONE (12:00)
[2017-08-05] MEDS ORDERED: KETOROLAC TROMETHAMINE 30 MG/ML (IVP) VIAL IV PUSH ONE (12:00)
[2017-08-05] MEDS ORDERED: NEOSTIGMINE 5 MG/5 ML SYRINGE IV PUSH ONE (12:00)
[2017-08-05] MEDS: LACTATED RINGER'S 1000 ML INJ 1,000 ML IV SCH ×2 (12:36→21:00)
[2017-08-05] MEDS ORDERED: POVIDONE IODINE 5% (ANTISEPSIS KIT) 4 APPLICATIONS EACH NARE PRN (14:15)
[2017-08-05] MEDS ORDERED: METOPROLOL TARTRATE 25 MG TAB PO PRN (14:15)
[2017-08-05] MEDS ORDERED: LACTATED RINGER'S 1000 ML IV PRN (14:15)
[2017-08-05] MEDS ORDERED: CHLORHEXIDINE GLUCONATE 2 % 1 PACK (2 CLOTHS) TOPICAL PRN (14:15)
[2017-08-05] MEDS ORDERED: INSULIN HUMAN REGULAR 1,000 UNITS/10 ML VIAL SQ PRN (14:15)
[2017-08-05] MEDS ORDERED: SODIUM CHLORID 0.9% 500 ML IV PRN (14:15)
--- NOTE | 2017-08-05 14:32 | PD.OP ---
Operative Report Left foot puncture wound abscess celluitis Postoperative Diagnosis: same Procedure: Left foot incision drainage, exploration of joint and extensor tendon exploration Surgeon: Reggie Mendenhall It Application Development Manager(s): scrub Operation and Findings: See Op Report. Minimal blood loss. Await further improvement and deep wound cx results, depth of infection likely warrants IV ABX for atleast 2 weeks. Reggie Mendenhall DPM Aug 05, 2017 14:32
[2017-08-05] MEDS ORDERED: DO NOT ADM ANY ANTICOAGULANT DRUGS PRN (14:44)
--- NOTE | 2017-08-05 16:41 | EKG ---
Date Performed: 08/05/2017 Time Performed: 04:53:25 PTAGE: 52 years EKG: Sinus rhythm INCOMPLETE RIGHT BUNDLE BRANCH BLOCK MINIMAL ST DEPRESSION Since previous tracing, no significant ch brigid noted BORDERLINE ECG PREVIOUS TRACING : 08/25/2015 11.22 DOCTOR: Brandin Dinero Interpretating Date/Time 08/05/2017 16:40:00
--- NOTE | 2017-08-05 18:14 | HHI.IDPN ---
Subjective Subjective Remarks ID X Cover for Dr. Castillo Patient seen and examined with Dr. Vargas Patient is a 52-year-old male, with known diabetes, and some underlying neuropathy, admitted to the hospital for evaluation of redness and swelling on his left foot. Patient apparently stepped on a school and sustained a wound on the plantar aspect of his foot. He didn't realize it until about several hours later when he noted some blood on the floor when he was in the bathroom. He cleaned it and did some local wound care. The following day he started noticing redness and later on pain. Pain has improved, but the redness got worse as well as the swelling so he patient to the hospital for further evaluation and treatment. He denies any fever or chills or sweats. Patient has a chronic cough related to his asthma. No nausea or vomiting or any urinary complaints. Since admission patient has not been febrile. His initial WBC is 11,000, and it's down to normal. MRI of the foot showed an abscess on the plantar aspect of the foot, and some early changes of possible septic joint at the second and third at the tarsal joint. Podiatry saw the patient and did bedside I and D of the abscess on the foot. There was a wound culture on admission that is growing MSSA and Leclercia. Pain currently is under control. Infectious disease consultation has been requested to evaluate the patient for possible septic joint in the left foot. Notes reviewed s/p left foot I&D, exploration of joint and extensor tendon patient is afebrile reports no change in chronic dyspnea denies any fever, chills, N/V, diarrhea WBC normal BC negative Wound C/S MSSA and Leclercia Antibiotics Rocephin Flagyl Current Medications Medications (Trade) Dose Ordered Sig/Richard Route Start Time Stop Time Status Last Admin (NS Flush) 2 ml UNSCH PRN IV FLUSH 07/31/17 18:15 (NS Flush) 2 ml BID IV FLUSH 07/31/17 21:00 08/04/17 09:56 (Zofran Inj) 4 mg Q6H PRN IVP 07/31/17 18:15 (Narcan Inj) 0.4 mg UNSCH PRN IV PUSH 07/31/17 18:15 (Rivka-Colace) 1 tab BID PO 07/31/17 21:00 08/04/17 09:56 (Milk Of Magnesia Liq) 30 ml Q12H PRN PO 07/31/17 18:15 (Senokot) 17.2 mg Q12H PRN PO 07/31/17 18:15 (Dulcolax Supp) 10 mg DAILY PRN RECTAL 07/31/17 18:15 (Lactulose Liq) 30 ml DAILY PRN PO 07/31/17 18:15 (D50w (Vial) Inj) 50 ml UNSCH PRN IV PUSH 07/31/17 21:15 (Glucagon Inj) 1 mg UNSCH PRN OTHER 07/31/17 21:15 (NovoLOG SUPPLEMENTAL SCALE) 1 ACHS SLIDING SCALE SQ 08/01/17 08:00 (Romazicon Inj) 0.2 mg Q1M PRN IV PUSH 07/31/17 21:15 (Ativan) 1 mg Q4H PRN PO 07/31/17 21:15 (Ativan Inj) 1 mg Q4H PRN IV PUSH 07/31/17 21:15 (Ativan) 2 mg Q2H PRN PO 07/31/17 21:15 (Ativan Inj) 2 mg Q2H PRN IV PUSH 07/31/17 21:15 (Ativan Inj) 2 mg Q1H PRN IV PUSH 07/31/17 21:15 (Ativan Inj) 2 mg Q15M PRN IV PUSH 07/31/17 21:15 (Vitamin B1) 100 mg DAILY PO 07/31/17 21:15 08/04/17 09:56 (Vasotec Inj) 1.25 mg Q6H PRN IV PUSH 08/01/17 00:00 08/03/17 08:33 (Ultram) 50 mg Q4H PRN PO 08/01/17 20:30 Ceftriaxone Sodium 2000 mg/ Sodium Chloride 100 ml @ 200 mls/hr Q24H IV 08/02/17 21:00 08/03/17 21:40 (Flagyl) 500 mg Q6HR PO 08/03/17 00:00 08/04/17 13:02 (Norvasc) 10 mg DAILY PO 08/03/17 09:00 08/04/17 09:56 (Catapres) 0.1 mg Q8HR PO 08/03/17 14:00 4/2/18 13:03 Lines PIV with no evidence of infection Past Medical History DM Diabetic neuropathy asthma HTN Hypothyroid Gout Past Surgical History right tib fib repair testicle repair (Lovely Otero) Allergies: Coded Allergies: No Known Allergies (Verified Allergy, Unknown, 07/31/17) Objective . Vital Signs Date Time Temp Pulse Resp B/P (MAP) Pulse Ox O2 Delivery O2 Flow Rate FiO2 08/05/17 18:00 98.0 70 19 140/75 (96) 96 08/05/17 16:00 98.7 66 20 134/60 (84) 91 08/05/17 15:00 73 18 142/75 (97) 94 Nasal Cannula 2 08/05/17 14:45 97.4 77 22 132/63 (86) 96 Nasal Cannula 2 08/05/17 12:39 97.8 82 18 130/88 (102) 94 08/05/17 08:01 98.0 71 18 123/76 (92) 98 08/05/17 06:02 74 18 140/79 (99) 93 08/05/17 04:49 97.9 80 17 163/98 (119) 95 08/05/17 01:24 68 18 146/77 (100) 96 08/05/17 00:28 98.0 67 17 160/78 (105) 97 08/04/17 21:35 98.0 72 16 152/77 (102) 97 08/05/17 08/05/17 08/06/17 15:00 23:00 07:00 Intake Total 500 ml Output Total 10 ml Balance 490 ml IV Total 500 ml Estimated Blood Loss 10 ml # Voids 1 . Laboratory Tests Test 08/04/17 05:17 08/04/17 14:50 08/05/17 06:00 Erythrocyte Sedimentation Rate 62 mm/hr White Blood Count 7.4 TH/MM3 7.9 TH/MM3 Red Blood Count 3.75 MIL/MM3 3.86 MIL/MM3 Hemoglobin 11.8 GM/DL 12.0 GM/DL Hematocrit 34.8 % 35.7 % Mean Corpuscular Volume 92.9 FL 92.6 FL Mean Corpuscular Hemoglobin 31.4 PG 31.2 PG Mean Corpuscular Hemoglobin Concent 33.8 % 33.7 % Red Cell Distribution Width 14.4 % 14.2 % Platelet Count 122 TH/MM3 138 TH/MM3 Mean Platelet Volume 8.6 FL 8.6 FL Neutrophils (%) (Auto) 67.4 % 66.8 % Lymphocytes (%) (Auto) 12.5 % 14.7 % Monocytes (%) (Auto) 17.3 % 15.8 % Eosinophils (%) (Auto) 2.3 % 2.2 % Basophils (%) (Auto) 0.5 % 0.5 % Neutrophils # (Auto) 5.0 TH/MM3 5.3 TH/MM3 Lymphocytes # (Auto) 0.9 TH/MM3 1.2 TH/MM3 Monocytes # (Auto) 1.3 TH/MM3 1.2 TH/MM3 Eosinophils # (Auto) 0.2 TH/MM3 0.2 TH/MM3 Basophils # (Auto) 0.0 TH/MM3 0.0 TH/MM3 CBC Comment DIFF FINAL DIFF FINAL Differential Comment Laboratory Tests Test 08/04/17 05:17 08/04/17 14:50 08/05/17 05:35 C-Reactive Protein 14.00 MG/DL Blood Urea Nitrogen 12 MG/DL 14 MG/DL Creatinine 1.17 MG/DL 1.23 MG/DL Random Glucose 106 MG/DL 83 MG/DL Calcium Level 8.9 MG/DL 8.7 MG/DL Sodium Level 137 MEQ/L 137 MEQ/L Potassium Level 3.7 MEQ/L 3.6 MEQ/L Chloride Level 107 MEQ/L 106 MEQ/L Carbon Dioxide Level 19.8 MEQ/L 19.7 MEQ/L Anion Gap 10 MEQ/L 11 MEQ/L Estimat Glomerular Filtration Rate 65 ML/MIN 62 ML/MIN Albumin 2.8 GM/DL Phosphorus Level 3.8 MG/DL Magnesium Level 1.8 MG/DL Microbiology Date/Time Source Procedure Growth Status 08/05/17 14:47 Wound Foot Fungal Smear Pending Received 08/05/17 14:47 Wound Foot Fungal Culture Pending Received 08/05/17 14:47 Wound Foot Acid Fast Stain Pending Received 08/05/17 14:47 Wound Foot Mycobacterial Culture Pending Received 08/05/17 14:47 Wound Foot Gram Stain Pending Received 08/05/17 14:47 Wound Foot Wound Culture Pending Received Imaging Last Impressions Foot X-Ray 07/31/17 1529 Signed Impressions: Service Date/Time: July 15:40 - CONCLUSION: No acute fracture or joint dislocation. Primary degenerative changes with mild soft tissue swelling. Agus Esparza MD Foot MRI 07/31/17 0000 Signed Impressions: Service Date/Time: July 22:01 - CONCLUSION: 1. Soft tissue ulceration plantar to the second and third metatarsophalangeal joints. There is a 9 x 9 x 18 mm abscess in between the distal second and third metatarsals and suspected early septic arthropathy of the second and third metatarsophalangeal joints. However, no evidence of osteomyelitis at this time. 2. There is chronic appearing arthropathy of the first metatarsophalangeal joint and sesamoids, also without definite osteomyelitis. Cecilio Salter MD Physical Exam GENERAL: WDWN male, INAD. awake and alert, sitting up in bed. Daughter at the bedside. SKIN: Cool and dry. No generalized rash HEAD: Atraumatic. Normocephalic. EYES: [place] conjunctiva. No petechia or hemorrhage. Extraocular movements full and intact. No scleral icterus. No injection or drainage. EARS, NOSE AND THROAT: Nose without bleeding or purulent nasal discharge. No sinus tenderness. Mucous membranes pink and moist. No oral lesions noted. No exudate. No oral thrush. NECK: Trachea midline. Supple and not tender, no meningeal signs CARDIOVASCULAR: Regular rate and rhythm. No murmurs, rubs or gallops heard RESPIRATORY: Clear to auscultation. Breath sounds equal bilaterally. No rales , wheezing or rhonchi ABDOMEN: Soft, non-tender, nondistended. Bowel sounds present and normoactive. No guarding. No rebound. No organomegaly. EXTREMITIES: No clubbing, cyanosis, or edema. L foot in postop dressing, able to wiggle toes. No calf tenderness. Well perfused and warm. NEUROLOGICAL: Non-focal PSYCHIATRIC: Normal affect, calm and cooperative. LINE: No evidence of infection (Lovely Otero) Assessment & Plan Remarks IMPRESSION L foot infection, with cellulitis and plantar abscess, S/P bedside I&D 08/01/17 with cx positive for Leclercia adecarboxylata and staph S/p I&D 08/05/[address] Wild and per discussion septic 2nd MPJ with deep abscess, no obvious e/o osteo Blood cultures negative DM Mild elevation LFT RECOMMENDATION Continue Rocephin IV and po Flagyl Monitor progress Await intraop culture results Will determine course of RX once work-up completed Explained plan to the patient and daughter (Lovely Otero) Remarks The exam, history, and the medical decision-making described in the above note were completed with the assistance of the mid-level provider. I reviewed and agree with the findings presented. I attest that I had a [id number] encounter with the patient on the same day, and personally performed and documented my assessment and findings in the medical record. Foot in post op dressing. Case dw : Abscess drained. Septic 2nd MPJ. Intra op cultures and path from today needed to decide DC regimen Continue Ceftriaxone IV and Flagyl oral. (Maday Vargas MD) Lovely Otero Aug 05, 2017 18:14 Maday Vargas MD Aug 05, 2017 19:05
--- NOTE | 2017-08-05 18:54 | MP ---
cc: Reggie Wild DPM DATE OF OPERATION: PREOPERATIVE DIAGNOSIS: Left foot abscess, septic second metatarsophalangeal joint, deep interspace infection. POSTOPERATIVE DIAGNOSIS: Left foot abscess, septic second metatarsophalangeal joint, deep interspace infection. PROCEDURE PERFORMED: Expansile incision and drainage, dorsum and plantar foot with arthrotomy, second metatarsophalangeal joint. ANESTHESIA: General. ESTIMATED BLOOD LOSS: Less than 30 mL. TOURNIQUET TIME: Approximately 20 minutes at a setting of 215 mmHg about the patient's ankle. SPECIMEN: Deep culture. COMPLICATIONS: None. JUSTIFICATION FOR PROCEDURE: This is a 52-year-old male who was admitted for severe infection. Bedside I and D was performed. Clinical improvement was minimal. We opted to move forward with more aggressive debridement to relieve infection and obtain deep cultures. The patient was educated on the risks of surgery, including, but not limited to, need for more surgery at a later date, loss of digit, stiffness, wound healing problems. No guarantees were given or implied regarding the outcome. PROCEDURE IN DETAIL: Under mild sedation, the patient was brought in the operating room, placed on the operating table in supine position. Following the induction of general anesthesia, the patient's left lower extremity was then scrubbed, prepped and draped in the usual aseptic fashion. The foot was elevated, exsanguinated and the previously placed mid ankle tourniquet inflated at 215 mmHg. Focus was at the level of the plantar second MPJ where there was noted to be a deep puncture wound. This was excised down to fibrotic granular tissue. Upon making the incision down, it tracked all the way down to the second MPJ joint capsule. A linear incision took place. There was noted to be no obvious bone soft cortical abnormality. There was noted to be slight increased joint fluid; however, no denise purulence. There was a second interspace abscess that probed directly to the dorsum of the foot. Next, an incision was made at the base of the second digit. Sharp and blunt dissection was carried down to the extensor tendon sheath. A linear incision took place and proximal dissection took place. There was no obvious tracking along the dorsum of the foot. There was noted to be a loculated abscess at the level of the second interspace dorsal and in-between the second and third metatarsals. A curettage, rongeur took place. Pulse lavage took place. The wound was then packed open with loose retention sutures. Upon relieving the tourniquet, there was a prompt hyperemic response to all digits. A bulky bandage placed. The patient transferred over to PACU with all vital signs stable. We will await deep cultures and further clinical improvement. YUNIOR Brasher/ALISON , 06:39 PM , 06:53 PM
[2017-08-05] MEDS: cefTRIAXone INJ 2,000 MG in SODIUM CHLORIDE 0.9% INJ 100 ML IV SCH (21:40)
[2017-08-06] VITALS: BP 129/77; PULSE 65; RESP 18; TEMP 98.7; O2SAT 97
[2017-08-06] MEDS: metroNIDAZOLE 500 MG TAB PO SCH ×4 (00:05→18:02)
[2017-08-06 04:00] VITALS: BP 161/86; PULSE 64; RESP 20; TEMP 98; O2SAT 98
[2017-08-06 04:52] LABS: AUTOMATED NEUTROPHIL # 6.8 TH/MM3 (1.8-7.7); BASOPHIL % 0.3 % (0.0-2.0); EOSINOPHIL % 0.1 % (0.0-4.0); HEMATOCRIT 36.9 % (39.0-51.0); HEMOGLOBIN 12.5 GM/DL (13.0-17.0); LYMPH % 11.8 % (9.0-44.0); MEAN CELL VOLUME 92.5 FL (80.0-100.0); MEAN CORPUSCULAR HEMOGLOBIN 31.4 PG (27.0-34.0); MEAN CORPUSCULAR HGB CONC 33.9 % (32.0-36.0); MEAN PLATELET VOLUME 8.2 FL (7.0-11.0); MONO % 8.7 % (0.0-8.0); MONOCYTE # 0.8 TH/MM3 (0-0.9); NEUT % 79.1 % (16.0-70.0); PLATELET COUNT 164 TH/MM3 (150-450); RED BLOOD COUNT 3.99 MIL/MM3 (4.50-5.90); RED CELL DISTRIBUTION WIDTH 14.4 % (11.6-17.2); WHITE BLOOD COUNT 8.6 TH/MM3 (4.0-11.0)
[2017-08-06] MEDS: cloNIDine HCL 0.1 MG TAB PO SCH ×3 (05:11→21:45)
[2017-08-06 05:20] LABS: BICARBONATE 19.9 MEQ/L (21.0-32.0); CALCIUM 8.7 MG/DL (8.5-10.1); CREATININE 1.2 MG/DL (0.60-1.30); MAGNESIUM 2.1 MG/DL (1.5-2.5); PHOSPHORUS 3.2 MG/DL (2.5-4.9)
[2017-08-06] MEDS: LACTATED RINGER'S 1000 ML INJ 1,000 ML IV SCH ×2 (07:00→15:24)
[2017-08-06 08:00] VITALS: BP 165/86; PULSE 58; RESP 18; TEMP 97.4; O2SAT 99
[2017-08-06] MEDS: INSULIN ASPART SUPPLEMENTAL SCALE SQ SCH ×4 (08:00→21:00)
[2017-08-06] MEDS: SODIUM CHLORIDE 0.9% FLUSH 10 ML FLUSH IV FLUSH SCH ×2 (09:00→21:45)
[2017-08-06] MEDS: THIAMINE HCL 100 MG TAB PO SCH (09:18)
[2017-08-06] MEDS: DOCUSATE SODIUM 50 MG/SENNA 8.6 MG TAB PO SCH ×2 (09:18→21:45)
--- NOTE | 2017-08-06 11:00 | HHI.PR ---
Subjective Remarks in no acute distress. looks and feels comfortable. denies pain and no fever. no new complaints. Objective Vitals Vital Signs Date Time Temp Pulse Resp B/P (MAP) Pulse Ox O2 Delivery O2 Flow Rate FiO2 08/06/17 08:00 97.4 58 18 165/86 (112) 99 08/06/17 04:00 98.0 64 20 161/86 (111) 98 08/06/17 00:00 98.7 65 18 129/77 (94) 97 08/05/17 20:00 97.3 68 20 139/76 (97) 96 08/05/17 18:00 98.0 70 19 140/75 (96) 96 08/05/17 16:00 98.7 66 20 134/60 (84) 91 08/05/17 15:00 73 18 142/75 (97) 94 Nasal Cannula 2 08/05/17 14:45 97.4 77 22 132/63 (86) 96 Nasal Cannula 2 08/05/17 12:39 97.8 82 18 130/88 (102) 94 I/O 08/05/17 08/05/17 08/05/17 08/06/17 08/06/17 08/06/17 07:00 15:00 23:00 07:00 15:00 23:00 Intake Total 500 ml 240 ml 1101 ml Output Total 250 ml 10 ml 200 ml Balance -250 ml 490 ml 40 ml 1101 ml Intake Oral 240 ml IV Total 500 ml 1101 ml Output Urine Total 250 ml 200 ml Estimated Blood Loss 10 ml # Voids 1 4 # Bowel Movements 2 Result Diagram: 08/06/17 0345 08/06/17 0345 Imaging Last Impressions Foot X-Ray 07/31/17 1529 Signed Impressions: Service Date/Time: July 15:40 - CONCLUSION: No acute fracture or joint dislocation. Primary degenerative changes with mild soft tissue swelling. Agus Esparza MD Foot MRI 07/31/17 0000 Signed Impressions: Service Date/Time: July 22:01 - CONCLUSION: 1. Soft tissue ulceration plantar to the second and third metatarsophalangeal joints. There is a 9 x 9 x 18 mm abscess in between the distal second and third metatarsals and suspected early septic arthropathy of the second and third metatarsophalangeal joints. However, no evidence of osteomyelitis at this time. 2. There is chronic appearing arthropathy of the first metatarsophalangeal joint and sesamoids, also without definite osteomyelitis. Cecilio Salter MD Objective Remarks GENERAL: This is a well-nourished, well-developed patient, in no apparent distress. CARDIOVASCULAR: Regular rate and regular rhythm without murmurs, gallops, or rubs. RESPIRATORY: Clear to auscultation. Breath sounds equal bilaterally. No wheezes , rales, or rhonchi. GASTROINTESTINAL: Abdomen soft, non-tender, nondistended. Normal, active bowel sounds MUSCULOSKELETAL: left foot covered with clean dressing. NEURO: Alert & Oriented x4 to person, place, time, situation. Moves all ext x4 Medications and IVs Inpatient Medications Acetaminophen (Tylenol) 650 mg Q4H PRN PO PAIN SCALE 1 TO 10; Start 08/04/17 at 19:30 Amlodipine Besylate (Norvasc) 10 mg DAILY PO Last administered on 08/06/17at 09: 18; Start 08/03/17 at 09:00 Bisacodyl (Dulcolax Supp) 10 mg DAILY PRN RECTAL SEVERE CONSITIPATION; Start at 18:15 Ceftriaxone Sodium 2000 mg/ Sodium Chloride 100 ml @ 200 mls/hr Q24H IV Last administered on 08/05/17at 21:40; Start 08/02/17 at 21:00 Chlorhexidine Gluconate (Chlorhexidine 2% Cloth) 3 pack GLOBAL MOBILITY SPECIALIST PRN TOPICAL SEE LABEL COMMENTS; Start 08/05/17 at 14:15; Stop 08/08/17 at 14:14 Clindamycin Phosphate 600 mg/ Sodium Chloride 104 ml @ 208 mls/hr Q6H IV Last administered on 08/01/17at 14:05; Start 08/01/17 at 02:00; Stop 08/01/17 at 16:18 ; Status DC Clindamycin/ Sodium Chloride 50 ml @ 100 mls/hr ONCE ONCE IV Last administered on 07/31/17at 16:55; Start 07/31/17 at 15:30; Stop 07/31/17 at 15:59 ; Status DC Clonidine (Catapres) 0.1 mg Q8HR PO Last administered on 08/06/17at 05:11; Start 08/03/17 at 14:00 Dextrose (D50w (Vial) Inj) 50 ml UNSCH PRN IV PUSH HYPOGLYCEMIA-SEE COMMENTS; Start 07/31/17 at 21:15 Enalaprilat (Vasotec Inj) 1.25 mg Q6H PRN IV PUSH SBP>160, DBP>90 Last administered on 08/03/17at 08:33; Start 08/01/17 at 00:00 Flumazenil (Romazicon Inj) 0.2 mg Q1M PRN IV PUSH SEE LABEL COMMENTS; Start at 21:15 Glucagon (Glucagon Inj) 1 mg UNSCH PRN OTHER HYPOGLYCEMIA-SEE COMMENTS; Start 07/31/17 at 21:15 Influenza Virus Vaccine (Flu (Quadrivalent) Vaccine Inj) 0.5 ml ONCE ONCE IM ; Start 08/01/17 at 10:00; Stop 08/01/17 at 10:01; Status DC Insulin Aspart (NovoLOG SUPPLEMENTAL SCALE) 1 ACHS SLIDING SCALE SQ ; Start at 08:00 Insulin Human Regular (NovoLIN R INJ) See Protocol Table ... GLOBAL MOBILITY SPECIALIST PRN SQ SEE PROTOCOL TABLE; Start 08/05/17 at 14:15; Stop 08/08/17 at 14:14 Lactated Ringer's 1,000 ml @ 30 mls/hr Q24H PRN IV SEE LABEL COMMENTS; Start at 14:15; Stop 08/08/17 at 14:14 Lactulose (Lactulose Liq) 30 ml DAILY PRN PO SEVERE CONSITIPATION; Start at 18:15 Lorazepam (Ativan Inj) 2 mg Q15M PRN IV PUSH CIWA > 20; Start 07/31/17 at 21:15 Lorazepam (Ativan) 2 mg Q2H PRN PO CIWA 11-14; Start 07/31/17 at 21:15 Magnesium Hydroxide (Milk Of Magnesia Liq) 30 ml Q12H PRN PO Mild constipation ; Start 07/31/17 at 18:15 Metoprolol Tartrate (Lopressor) 25 mg GLOBAL MOBILITY SPECIALIST PRN PO SEE LABEL COMMENTS; Start 08/05/17 at 14:15; Stop 08/08/17 at 14:14 Metronidazole (Flagyl) 500 mg Q6HR PO Last administered on 08/06/17at 05:11; Start 08/03/17 at 00:00 Miscellaneous Information ALL NURSING DEPARTME... UNSCH PRN .XX SEE LABEL COMMENTS; Start 08/05/17 at 14:44; Stop 08/06/17 at 14:43 Naloxone HCl (Narcan Inj) 0.4 mg UNSCH PRN IV PUSH SEE LABEL COMMENTS; Start at 18:15 Ondansetron HCl (Zofran Inj) 4 mg Q6H PRN IVP NAUSEA OR VOMITING; Start at 18:15 Pharmacy Profile Note 0 ml @ 0 mls/hr UNSCH OTHER ; Start 08/01/17 at 16:15; Stop 08/02/17 at 19:44; Status DC Piperacillin Sod/ Tazobactam Sod 100 ml @ 200 mls/hr Q6H IV Last administered on 08/02/17at 17:00; Start 08/01/17 at 17:00; Stop 08/02/17 at 19:44; Status DC Pneumococcal Polyvalent Vaccine (Pneumovax-23 Inj) 25 mcg ONCE ONCE IM ; Start 08/01/17 at 10:00; Stop 08/01/17 at 10:01; Status DC Povidone Iodine (Betadine 5% Antisepsis Kit) 1 applic GLOBAL MOBILITY SPECIALIST PRN EACH NARE SEE LABEL COMMENTS; Start 08/05/17 at 14:15; Stop 08/08/17 at 14:14 Senna/Docusate Sodium (Rivka-Colace) 1 tab BID PO Last administered on 08/06/17at 09:18; Start 07/31/17 at 21:00 Sennosides (Senokot) 17.2 mg Q12H PRN PO Moderate constipation; Start 07/31/17 at 18:15 Sodium Chloride 500 ml @ 30 mls/hr [id number] PRN IV SEE LABEL COMMENTS; Start 08/05/17 at 14:15; Stop 08/08/17 at 14:14 Sodium Chloride (NS Flush) 2 ml BID IV FLUSH Last administered on 08/05/17at 21: 40; Start 07/31/17 at 21:00 Thiamine HCl (Vitamin B1) 100 mg DAILY PO Last administered on 08/06/17at 09:18; Start 07/31/17 at 21:15 Tramadol HCl (Ultram) 50 mg Q4H PRN PO PAIN 1-10 Last administered on 08/05/17at 22:49; Start 08/01/17 at 20:30 Vancomycin HCl 1500 mg/Sodium Chloride 515 ml @ 257.5 mls/ hr Q12H IV Last administered on 08/02/17at 18:00; Start 08/01/17 at 18:00; Stop 08/02/17 at 19:46 ; Status DC A/P Problem List: (1) Diabetic foot infection ICD Code: E11.628 - Type 2 diabetes mellitus with other skin complications; L08.9 - Local infection of the skin and subcutaneous tissue, unspecified Status: Acute (2) DM2 (diabetes mellitus, type 2) ICD Code: E11.9 - Type 2 diabetes mellitus without complications Status: Chronic (3) HTN (hypertension) ICD Code: I10 - Essential (primary) hypertension Status: Chronic Assessment and Plan A/P Cellulitis, left foot Foot x-ray reviewed and shows mild soft tissue swelling -s/p Expansile incision and drainage, dorsum and plantar foot with arthrotomy , second metatarsophalangeal joint. -IV antibiotics: Rocephin and Flagyl. -MRI left foot ordered to rule out osteo, reviewed and shows soft tissue ulceration plantar to the second and third metatarsal joints 9 x 9 x 18 mm abscess in between the distal second and third metatarsals suspected for early septic arthropathy. No evidence of osteo-at this time -Wound cultures reviewed. Sensitive to ceftriaxone. We'll start ceftriaxone and Flagyl as per ID recommendations. Podiatry following. Appreciate assistance. Transaminitis, likely secondary to alcohol dependence -Cont IVF -Labs improved. Discontinue alcohol as outpatient Diabetes, chronic -Accu-Cheks with SSI -A1c 5.5 -Hold home by mouth medication at this time Hypertension, chronic -Resumed home medications once med rec is reconciled, monitor vitals -Vasotec when necessary - Started amlodipine 10 mg daily and clonidine. - continue to monitor and adjust the regimen as needed. Hypothyroidism, chronic -Continue home medications once med rec is reconciled -Consulted case management for medication assistance Thrombocytopenia. improved. Likely secondary to alcohol dependence. Alcohol dependence/abuse -[facility] protocol -Thiamine daily -Encouraged to quit DVT prophylaxis: SCDs Discharge Planning when cleared by podiatry and ID. Brian Shields MD Aug 06, 2017 11:00
[2017-08-06 12:00] VITALS: BP_SYST 144; PULSE 63; RESP 18; TEMP 96.7; O2SAT 97
--- NOTE | 2017-08-06 12:56 | HHI.IDPN ---
Subjective Subjective Remarks Patient seen and examined with Dr. Sam Quezada for Dr. Castillo Patient is a 52-year-old male, with known diabetes, and some underlying neuropathy, admitted to the hospital for evaluation of redness and swelling on his left foot. Patient apparently stepped on a school and sustained a wound on the plantar aspect of his foot. He didn't realize it until about several hours later when he noted some blood on the floor when he was in the bathroom. He cleaned it and did some local wound care. The following day he started noticing redness and later on pain. Pain has improved, but the redness got worse as well as the swelling so he patient to the hospital for further evaluation and treatment. He denies any fever or chills or sweats. Patient has a chronic cough related to his asthma. No nausea or vomiting or any urinary complaints. Since admission patient has not been febrile. His initial WBC is 11,000, and it's down to normal. MRI of the foot showed an abscess on the plantar aspect of the foot, and some early changes of possible septic joint at the second and third at the tarsal joint. Podiatry saw the patient and did bedside I and D of the abscess on the foot. There was a wound culture on admission that is growing MSSA and Leclercia. Pain currently is under control. Infectious disease consultation has been requested to evaluate the patient for possible septic joint in the left foot. Notes reviewed 08/05 s/p left foot I&D, exploration of joint and extensor tendon patient is afebrile WBC WNL states he feels well he is anxious to be discharged reports no change in chronic dyspnea No rash denies any fever, chills, N/V, diarrhea WBC normal BC negative 07/31 Wound C/S MSSA and Leclercia Intraop cx 08/05 with light growth normal skin sharri Antibiotics Rocephin Flagyl Current Medications Medications (Trade) Dose Ordered Sig/Richard Route Start Time Stop Time Status Last Admin (NS Flush) 2 ml UNSCH PRN IV FLUSH 07/31/17 18:15 (NS Flush) 2 ml BID IV FLUSH 07/31/17 21:00 08/04/17 09:56 (Zofran Inj) 4 mg Q6H PRN IVP 07/31/17 18:15 (Narcan Inj) 0.4 mg UNSCH PRN IV PUSH 07/31/17 18:15 (Rivka-Colace) 1 tab BID PO 07/31/17 21:00 08/04/17 09:56 (Milk Of Magnesia Liq) 30 ml Q12H PRN PO 07/31/17 18:15 (Senokot) 17.2 mg Q12H PRN PO 07/31/17 18:15 (Dulcolax Supp) 10 mg DAILY PRN RECTAL 07/31/17 18:15 (Lactulose Liq) 30 ml DAILY PRN PO 07/31/17 18:15 (D50w (Vial) Inj) 50 ml UNSCH PRN IV PUSH 07/31/17 21:15 (Glucagon Inj) 1 mg UNSCH PRN OTHER 07/31/17 21:15 (NovoLOG SUPPLEMENTAL SCALE) 1 ACHS SLIDING SCALE SQ 08/01/17 08:00 (Romazicon Inj) 0.2 mg Q1M PRN IV PUSH 07/31/17 21:15 (Ativan) 1 mg Q4H PRN PO 07/31/17 21:15 (Ativan Inj) 1 mg Q4H PRN IV PUSH 07/31/17 21:15 (Ativan) 2 mg Q2H PRN PO 07/31/17 21:15 (Ativan Inj) 2 mg Q2H PRN IV PUSH 07/31/17 21:15 (Ativan Inj) 2 mg Q1H PRN IV PUSH 07/31/17 21:15 (Ativan Inj) 2 mg Q15M PRN IV PUSH 07/31/17 21:15 (Vitamin B1) 100 mg DAILY PO 07/31/17 21:15 08/04/17 09:56 (Vasotec Inj) 1.25 mg Q6H PRN IV PUSH 08/01/17 00:00 08/03/17 08:33 (Ultram) 50 mg Q4H PRN PO 08/01/17 20:30 Ceftriaxone Sodium 2000 mg/ Sodium Chloride 100 ml @ 200 mls/hr Q24H IV 08/02/17 21:00 08/03/17 21:40 (Flagyl) 500 mg Q6HR PO 08/03/17 00:00 08/04/17 13:02 (Norvasc) 10 mg DAILY PO 08/03/17 09:00 08/04/17 09:56 (Catapres) 0.1 mg Q8HR PO 08/03/17 14:00 08/04/17 13:03 Lines PIV with no evidence of infection Past Medical History DM Diabetic neuropathy asthma HTN Hypothyroid Gout Past Surgical History right tib fib repair testicle repair (Lovely Otero) Allergies: Coded Allergies: No Known Allergies (Verified Allergy, Unknown, 07/31/17) Objective . Vital Signs Date Time Temp Pulse Resp B/P (MAP) Pulse Ox O2 Delivery O2 Flow Rate FiO2 08/06/17 12:00 96.7 63 18 144/ 97 08/06/17 08:00 97.4 58 18 165/86 (112) 99 08/06/17 04:00 98.0 64 20 161/86 (111) 98 08/06/17 00:00 98.7 65 18 129/77 (94) 97 08/05/17 20:00 97.3 68 20 139/76 (97) 96 08/05/17 18:00 98.0 70 19 140/75 (96) 96 08/05/17 16:00 98.7 66 20 134/60 (84) 91 08/05/17 15:00 73 18 142/75 (97) 94 Nasal Cannula 2 08/05/17 14:45 97.4 77 22 132/63 (86) 96 Nasal Cannula 2 . Laboratory Tests Test 08/04/17 14:50 08/05/17 06:00 08/06/17 03:45 White Blood Count 7.4 TH/MM3 7.9 TH/MM3 8.6 TH/MM3 Red Blood Count 3.75 MIL/MM3 3.86 MIL/MM3 3.99 MIL/MM3 Hemoglobin 11.8 GM/DL 12.0 GM/DL 12.5 GM/DL Hematocrit 34.8 % 35.7 % 36.9 % Mean Corpuscular Volume 92.9 FL 92.6 FL 92.5 FL Mean Corpuscular Hemoglobin 31.4 PG 31.2 PG 31.4 PG Mean Corpuscular Hemoglobin Concent 33.8 % 33.7 % 33.9 % Red Cell Distribution Width 14.4 % 14.2 % 14.4 % Platelet Count 122 TH/MM3 138 TH/MM3 164 TH/MM3 Mean Platelet Volume 8.6 FL 8.6 FL 8.2 FL Neutrophils (%) (Auto) 67.4 % 66.8 % 79.1 % Lymphocytes (%) (Auto) 12.5 % 14.7 % 11.8 % Monocytes (%) (Auto) 17.3 % 15.8 % 8.7 % Eosinophils (%) (Auto) 2.3 % 2.2 % 0.1 % Basophils (%) (Auto) 0.5 % 0.5 % 0.3 % Neutrophils # (Auto) 5.0 TH/MM3 5.3 TH/MM3 6.8 TH/MM3 Lymphocytes # (Auto) 0.9 TH/MM3 1.2 TH/MM3 1.0 TH/MM3 Monocytes # (Auto) 1.3 TH/MM3 1.2 TH/MM3 0.8 TH/MM3 Eosinophils # (Auto) 0.2 TH/MM3 0.2 TH/MM3 0.0 TH/MM3 Basophils # (Auto) 0.0 TH/MM3 0.0 TH/MM3 0.0 TH/MM3 CBC Comment DIFF FINAL DIFF FINAL DIFF FINAL Differential Comment Laboratory Tests Test 08/04/17 14:50 08/05/17 05:35 08/06/17 03:45 Blood Urea Nitrogen 12 MG/DL 14 MG/DL 22 MG/DL Creatinine 1.17 MG/DL 1.23 MG/DL 1.20 MG/DL Random Glucose 106 MG/DL 83 MG/DL 135 MG/DL Calcium Level 8.9 MG/DL 8.7 MG/DL 8.7 MG/DL Sodium Level 137 MEQ/L 137 MEQ/L 136 MEQ/L Potassium Level 3.7 MEQ/L 3.6 MEQ/L 4.1 MEQ/L Chloride Level 107 MEQ/L 106 MEQ/L 106 MEQ/L Carbon Dioxide Level 19.8 MEQ/L 19.7 MEQ/L 19.9 MEQ/L Anion Gap 10 MEQ/L 11 MEQ/L 10 MEQ/L Estimat Glomerular Filtration Rate 65 ML/MIN 62 ML/MIN 63 ML/MIN Albumin 2.8 GM/DL 3.0 GM/DL Phosphorus Level 3.8 MG/DL 3.2 MG/DL Magnesium Level 1.8 MG/DL 2.1 MG/DL Microbiology Date/Time Source Procedure Growth Status 08/05/17 14:47 Wound Foot Fungal Smear - Final NO FUNGAL ELEMENTS SEEN. Resulted 08/05/17 14:47 Wound Foot Fungal Culture Pending Resulted 08/05/17 14:47 Wound Foot Acid Fast Stain Pending Received 08/05/17 14:47 Wound Foot Mycobacterial Culture Pending Received 08/05/17 14:47 Wound Foot Gram Stain - Final Resulted 08/05/17 14:47 Wound Foot Wound Culture - Preliminary LIGHT GROWTH NORMAL SKIN SHARRI AT 24HRS Resulted Imaging Last Impressions Foot X-Ray 07/31/17 1529 Signed Impressions: Service Date/Time: July 15:40 - CONCLUSION: No acute fracture or joint dislocation. Primary degenerative changes with mild soft tissue swelling. Agus Esparza MD Foot MRI 07/31/17 0000 Signed Impressions: Service Date/Time: July 22:01 - CONCLUSION: 1. Soft tissue ulceration plantar to the second and third metatarsophalangeal joints. There is a 9 x 9 x 18 mm abscess in between the distal second and third metatarsals and suspected early septic arthropathy of the second and third metatarsophalangeal joints. However, no evidence of osteomyelitis at this time. 2. There is chronic appearing arthropathy of the first metatarsophalangeal joint and sesamoids, also without definite osteomyelitis. Cecilio Salter MD Physical Exam GENERAL: WDWN male, INAD. Awake and alert. Sitting up in bed reading newpaper. Appears comfortable. SKIN: Cool and dry. No generalized rash HEAD: Atraumatic. Normocephalic. EYES: [place] conjunctiva. No petechia or hemorrhage. Extraocular movements full and intact. No scleral icterus. No injection or drainage. EARS, NOSE AND THROAT: Nose without bleeding or purulent nasal discharge. No sinus tenderness. Mucous membranes pink and moist. No oral lesions noted. No exudate. No oral thrush. NECK: Trachea midline. CARDIOVASCULAR: Regular rate and rhythm. No murmurs, rubs or gallops heard RESPIRATORY: Clear to auscultation. Breath sounds equal bilaterally. No rales , wheezing or rhonchi ABDOMEN: Soft, non-tender, nondistended. Bowel sounds present and normoactive. No guarding. EXTREMITIES: No clubbing, cyanosis, or edema. L foot in postop dressing, able to wiggle toes. No calf tenderness. NEUROLOGICAL: Non-focal PSYCHIATRIC: Normal affect, calm and cooperative. LINE: No evidence of infection (Lovely Otero) Assessment & Plan Remarks L foot infection, with cellulitis and plantar abscess Septic second MPJ -No evidence of osteo-per MRI -CRP 14 -S/P bedside I&D 08/01/17 with cx positive for Leclercia adecarboxylata and staph -S/p I&D 08/05/[address] Wild and per discussion septic 2nd MPJ with deep abscess, no obvious e/o osteo -intraop wound cx with light growth normal skin sharri to date, no path pending Blood cultures negative DM Mild elevation LFT RECOMMENDATION Continue Rocephin IV and po Flagyl Monitor progress Follow intraoperative culture results Will determine course of RX once work-up completed (Lovely Otero) Remarks The exam, history, and the medical decision-making described in the above note were completed with the assistance of the mid-level provider. I reviewed and agree with the findings presented. I attest that I had a [id number] encounter with the patient on the same day, and personally performed and documented my assessment and findings in the medical record. Patient was rude. I told him that since he is self pay the blue card etc process has to get approval for meds will have to be done by assistant business manager. Left message with charger operator to have CM call me. Also waiting on cultures and podiatry to clear the patient for DC in am. would like IV antibiotics on discharge For now plan on Continue Rocephin IV once a day and po flagyl (Maday Vargas MD) Lovely Otero Aug 06, 2017 12:56 Maday Vargas MD Aug 06, 2017 14:47
[2017-08-06 16:00] VITALS: BP 139/77; PULSE 70; RESP 18; TEMP 96.3; O2SAT 97
[2017-08-06 20:10] VITALS: BP 159/77; PULSE 68; RESP 20; TEMP 97.2; O2SAT 100
[2017-08-06] MEDS: cefTRIAXone INJ 2,000 MG in SODIUM CHLORIDE 0.9% INJ 100 ML IV SCH (21:44)
[2017-08-07] MEDS: LACTATED RINGER'S 1000 ML INJ 1,000 ML IV SCH (00:03)
[2017-08-07 00:04] VITALS: BP 164/80; PULSE 60; RESP 20; TEMP 97.5; O2SAT 98
[2017-08-07] MEDS: metroNIDAZOLE 500 MG TAB PO SCH ×3 (00:04→12:20)
[2017-08-07 04:00] VITALS: BP 153/77; PULSE 60; RESP 20; TEMP 97.6; O2SAT 99
[2017-08-07] MEDS: cloNIDine HCL 0.1 MG TAB PO SCH ×2 (05:22→13:35)
[2017-08-07 07:40] VITALS: BP 126/74; PULSE 55; RESP 18; TEMP 98.1; O2SAT 96
[2017-08-07] MEDS: INSULIN ASPART SUPPLEMENTAL SCALE SQ SCH ×2 (08:00→11:25)
[2017-08-07] MEDS: DOCUSATE SODIUM 50 MG/SENNA 8.6 MG TAB PO SCH (09:35)
[2017-08-07] MEDS: THIAMINE HCL 100 MG TAB PO SCH (09:35)
[2017-08-07] MEDS: SODIUM CHLORIDE 0.9% FLUSH 10 ML FLUSH IV FLUSH SCH (09:40)
[2017-08-07 11:33] VITALS: BP 138/86; PULSE 57; RESP 18; TEMP 97.6; O2SAT 98
--- NOTE | 2017-08-07 12:42 | HHI.PR ---
Subjective Remarks overall he's doing fine. looks and feels comfortable. pain is controlled. no fever. Objective Vitals Vital Signs Date Time Temp Pulse Resp B/P (MAP) Pulse Ox O2 Delivery O2 Flow Rate FiO2 08/07/17 11:33 97.6 57 18 138/86 (103) 98 08/07/17 07:40 98.1 55 18 126/74 (91) 96 08/07/17 04:00 97.6 60 20 153/77 (102) 99 08/07/17 00:04 97.5 60 20 164/80 (108) 98 08/06/17 20:10 97.2 68 20 159/77 (104) 100 08/06/17 16:00 96.3 70 18 139/77 (97) 97 I/O 08/06/17 08/06/17 08/06/17 08/07/17 08/07/17 08/07/17 07:00 15:00 23:00 07:00 15:00 23:00 Intake Total 1101 ml 720 ml Balance 1101 ml 720 ml Intake Oral 720 ml IV Total 1101 ml # Voids 4 3 3 # Bowel Movements 2 1 1 Result Diagram: 08/06/17 0345 08/06/17 0345 Imaging Last Impressions Foot X-Ray 07/31/17 1529 Signed Impressions: Service Date/Time: July 15:40 - CONCLUSION: No acute fracture or joint dislocation. Primary degenerative changes with mild soft tissue swelling. Agus Esparza MD Foot MRI 07/31/17 0000 Signed Impressions: Service Date/Time: July 22:01 - CONCLUSION: 1. Soft tissue ulceration plantar to the second and third metatarsophalangeal joints. There is a 9 x 9 x 18 mm abscess in between the distal second and third metatarsals and suspected early septic arthropathy of the second and third metatarsophalangeal joints. However, no evidence of osteomyelitis at this time. 2. There is chronic appearing arthropathy of the first metatarsophalangeal joint and sesamoids, also without definite osteomyelitis. Cecilio Salter MD Objective Remarks GENERAL: This is a well-nourished, well-developed patient, in no apparent distress. CARDIOVASCULAR: Regular rate and regular rhythm without murmurs, gallops, or rubs. RESPIRATORY: Clear to auscultation. Breath sounds equal bilaterally. No wheezes , rales, or rhonchi. GASTROINTESTINAL: Abdomen soft, non-tender, nondistended. Normal, active bowel sounds MUSCULOSKELETAL: left foot covered with clean dressing. NEURO: Alert & Oriented x4 to person, place, time, situation. Moves all ext x4 Procedures Left foot incision drainage, exploration of joint and extensor tendon exploration Expansile incision and drainage, dorsum and plantar foot with arthrotomy, second metatarsophalangeal joint. Medications and IVs Inpatient Medications Acetaminophen (Tylenol) 650 mg Q4H PRN PO PAIN SCALE 1 TO 10; Start 08/04/17 at 19:30 Amlodipine Besylate (Norvasc) 10 mg DAILY PO Last administered on 08/07/17at 09: 39; Start 08/03/17 at 09:00 Bisacodyl (Dulcolax Supp) 10 mg DAILY PRN RECTAL SEVERE CONSITIPATION; Start at 18:15 Ceftriaxone Sodium 2000 mg/ Sodium Chloride 100 ml @ 200 mls/hr Q24H IV Last administered on 08/06/17at 21:44; Start 08/02/17 at 21:00 Chlorhexidine Gluconate (Chlorhexidine 2% Cloth) 3 pack MUNITIONS HANDLER PRN TOPICAL SEE LABEL COMMENTS; Start 08/05/17 at 14:15; Stop 08/08/17 at 14:14 Clindamycin Phosphate 600 mg/ Sodium Chloride 104 ml @ 208 mls/hr Q6H IV Last administered on 08/01/17at 14:05; Start 08/01/17 at 02:00; Stop 08/01/17 at 16:18 ; Status DC Clindamycin/ Sodium Chloride 50 ml @ 100 mls/hr ONCE ONCE IV Last administered on 07/31/17at 16:55; Start 07/31/17 at 15:30; Stop 07/31/17 at 15:59 ; Status DC Clonidine (Catapres) 0.1 mg Q8HR PO Last administered on 08/07/17at 05:22; Start 08/03/17 at 14:00 Dextrose (D50w (Vial) Inj) 50 ml UNSCH PRN IV PUSH HYPOGLYCEMIA-SEE COMMENTS; Start 07/31/17 at 21:15 Enalaprilat (Vasotec Inj) 1.25 mg Q6H PRN IV PUSH SBP>160, DBP>90 Last administered on 08/03/17at 08:33; Start 08/01/17 at 00:00 Flumazenil (Romazicon Inj) 0.2 mg Q1M PRN IV PUSH SEE LABEL COMMENTS; Start at 21:15 Glucagon (Glucagon Inj) 1 mg UNSCH PRN OTHER HYPOGLYCEMIA-SEE COMMENTS; Start 07/31/17 at 21:15 Influenza Virus Vaccine (Flu (Quadrivalent) Vaccine Inj) 0.5 ml ONCE ONCE IM ; Start 08/01/17 at 10:00; Stop 08/01/17 at 10:01; Status DC Insulin Aspart (NovoLOG SUPPLEMENTAL SCALE) 1 ACHS SLIDING SCALE SQ ; Start at 08:00 Insulin Human Regular (NovoLIN R INJ) See Protocol Table ... MUNITIONS HANDLER PRN SQ SEE PROTOCOL TABLE; Start 08/05/17 at 14:15; Stop 08/08/17 at 14:14 Lactated Ringer's 1,000 ml @ 30 mls/hr Q24H PRN IV SEE LABEL COMMENTS; Start at 14:15; Stop 08/08/17 at 14:14 Lactulose (Lactulose Liq) 30 ml DAILY PRN PO SEVERE CONSITIPATION; Start at 18:15 Lorazepam (Ativan Inj) 2 mg Q15M PRN IV PUSH CIWA > 20; Start 07/31/17 at 21:15 Lorazepam (Ativan) 2 mg Q2H PRN PO CIWA 11-14; Start 07/31/17 at 21:15 Magnesium Hydroxide (Milk Of Magnesia Liq) 30 ml Q12H PRN PO Mild constipation ; Start 07/31/17 at 18:15 Metoprolol Tartrate (Lopressor) 25 mg MUNITIONS HANDLER PRN PO SEE LABEL COMMENTS; Start 08/05/17 at 14:15; Stop 08/08/17 at 14:14 Metronidazole (Flagyl) 500 mg Q6HR PO Last administered on 08/07/17at 12:20; Start 08/03/17 at 00:00 Miscellaneous Information ALL NURSING DEPARTME... UNSCH PRN .XX SEE LABEL COMMENTS; Start 08/05/17 at 14:44; Stop 08/06/17 at 14:43; Status DC Naloxone HCl (Narcan Inj) 0.4 mg UNSCH PRN IV PUSH SEE LABEL COMMENTS; Start at 18:15 Ondansetron HCl (Zofran Inj) 4 mg Q6H PRN IVP NAUSEA OR VOMITING; Start at 18:15 Pharmacy Profile Note 0 ml @ 0 mls/hr UNSCH OTHER ; Start 08/01/17 at 16:15; Stop 08/02/17 at 19:44; Status DC Piperacillin Sod/ Tazobactam Sod 100 ml @ 200 mls/hr Q6H IV Last administered on 08/02/17at 17:00; Start 08/01/17 at 17:00; Stop 08/02/17 at 19:44; Status DC Pneumococcal Polyvalent Vaccine (Pneumovax-23 Inj) 25 mcg ONCE ONCE IM ; Start 08/01/17 at 10:00; Stop 08/01/17 at 10:01; Status DC Povidone Iodine (Betadine 5% Antisepsis Kit) 1 applic MUNITION[employer] HANDLER PRN EACH NARE SEE LABEL COMMENTS; Start 08/05/17 at 14:15; Stop 08/08/17 at 14:14 Senna/Docusate Sodium (Rivka-Colace) 1 tab BID PO Last administered on 08/07/17at 09:35; Start 07/31/17 at 21:00 Sennosides (Senokot) 17.2 mg Q12H PRN PO Moderate constipation; Start 07/31/17 at 18:15 Sodium Chloride 500 ml @ 30 mls/hr [id number] PRN IV SEE LABEL COMMENTS; Start 08/05/17 at 14:15; Stop 08/08/17 at 14:14 Sodium Chloride (NS Flush) 2 ml BID IV FLUSH Last administered on 08/07/17at 09: 40; Start 07/31/17 at 21:00 Thiamine HCl (Vitamin B1) 100 mg DAILY PO Last administered on 08/07/17at 09:35; Start 07/31/17 at 21:15 Tramadol HCl (Ultram) 50 mg Q4H PRN PO PAIN 1-10 Last administered on 08/05/17at 22:49; Start 08/01/17 at 20:30 Vancomycin HCl 1500 mg/Sodium Chloride 515 ml @ 257.5 mls/ hr Q12H IV Last administered on 08/02/17at 18:00; Start 08/01/17 at 18:00; Stop 08/02/17 at 19:46 ; Status DC A/P Problem List: (1) Diabetic foot infection ICD Code: E11.628 - Type 2 diabetes mellitus with other skin complications; L08.9 - Local infection of the skin and subcutaneous tissue, unspecified Status: Acute (2) DM2 (diabetes mellitus, type 2) ICD Code: E11.9 - Type 2 diabetes mellitus without complications Status: Chronic (3) HTN (hypertension) ICD Code: I10 - Essential (primary) hypertension Status: Chronic Assessment and Plan A/P Cellulitis, left foot Foot x-ray reviewed and shows mild soft tissue swelling -s/p Expansile incision and drainage, dorsum and plantar foot with arthrotomy , second metatarsophalangeal joint. -IV antibiotics: Rocephin and Flagyl. -MRI left foot ordered to rule out osteo, reviewed and shows soft tissue ulceration plantar to the second and third metatarsal joints 9 x 9 x 18 mm abscess in between the distal second and third metatarsals suspected for early septic arthropathy. No evidence of osteo-at this time -Wound cultures reviewed. Sensitive to ceftriaxone. Podiatry following. Appreciate assistance. Transaminitis, likely secondary to alcohol dependence -Cont IVF -Labs improved. Discontinue alcohol as outpatient Diabetes, chronic -Accu-Cheks with SSI -A1c 5.5 -Hold home by mouth medication at this time Hypertension, chronic -Resumed home medications once med rec is reconciled, monitor vitals -Vasotec when necessary - Started amlodipine 10 mg daily and clonidine. - continue to monitor and adjust the regimen as needed. Hypothyroidism, chronic -Continue home medications once med rec is reconciled -Consulted case management for medication assistance Thrombocytopenia. improved. Likely secondary to alcohol dependence. Alcohol dependence/abuse -[facility] protocol -Thiamine daily -Encouraged to quit DVT prophylaxis: SCDs Discharge Planning when cleared by podiatry and ID. Brian Shields MD Aug 07, 2017 12:42
[2017-08-07] MEDS ORDERED: TRAM50 PO (12:46)
[2017-08-07] MEDS ORDERED: THIA100 PO (12:46)
[2017-08-07] MEDS ORDERED: AMLO10 PO (12:46)
[2017-08-07] MEDS ORDERED: CLON.1 PO (12:46)
--- NOTE | 2017-08-07 14:01 | HHI.IDPN ---
Subjective Subjective Remarks Patient seen and examined with Dr. Sam VIZCARRA [facility] for Dr. Castillo Patient is a 52-year-old male, with known diabetes, and some underlying neuropathy, admitted to the hospital for evaluation of redness and swelling on his left foot. Patient apparently stepped on a screw and sustained a wound on the plantar aspect of his foot. He didn't realize it until about several hours later when he noted some blood on the floor when he was in the bathroom. He cleaned it and did some local wound care. The following day he started noticing redness and later on pain. Pain has improved, but the redness got worse as well as the swelling so he patient to the hospital for further evaluation and treatment. He denies any fever or chills or sweats. Patient has a chronic cough related to his asthma. No nausea or vomiting or any urinary complaints. Since admission patient has not been febrile. His initial WBC is 11,000, and it's down to normal. MRI of the foot showed an abscess on the plantar aspect of the foot, and some early changes of possible septic joint at the second and third at the tarsal joint. Podiatry saw the patient and did bedside I and D of the abscess on the foot. There was a wound culture on admission that is growing MSSA and Leclercia. Pain currently is under control. Infectious disease consultation has been requested to evaluate the patient for possible septic joint in the left foot. Notes reviewed 08/05 s/p left foot I&D, exploration of joint and extensor tendon Patient afebrile overnight WBC WNL, latest WBC 8.6 States he feels better. States surgeon has cleared him to go home. Denies chest pain, dyspnea. Reports no worsening of chronic shortness of breath Denies rash. Denies fevers, chills, nausea, vomiting, diarrhea. BC negative today 07/31 Wound C/S MSSA and Leclercia -currently on metronidazole, ceftriaxone Intraop cx 08/05 with light growth normal skin sharri Antibiotics Rocephin Flagyl Current Medications Medications (Trade) Dose Ordered Sig/Richard Route Start Time Stop Time Status Last Admin (NS Flush) 2 ml UNSCH PRN IV FLUSH 07/31/17 18:15 (NS Flush) 2 ml BID IV FLUSH 07/31/17 21:00 08/04/17 09:56 (Zofran Inj) 4 mg Q6H PRN IVP 07/31/17 18:15 (Narcan Inj) 0.4 mg UNSCH PRN IV PUSH 07/31/17 18:15 (Rivka-Colace) 1 tab BID PO 07/31/17 21:00 08/04/17 09:56 (Milk Of Magnesia Liq) 30 ml Q12H PRN PO 07/31/17 18:15 (Senokot) 17.2 mg Q12H PRN PO 07/31/17 18:15 (Dulcolax Supp) 10 mg DAILY PRN RECTAL 07/31/17 18:15 (Lactulose Liq) 30 ml DAILY PRN PO 07/31/17 18:15 (D50w (Vial) Inj) 50 ml UNSCH PRN IV PUSH 07/31/17 21:15 (Glucagon Inj) 1 mg UNSCH PRN OTHER 07/31/17 21:15 (NovoLOG SUPPLEMENTAL SCALE) 1 ACHS SLIDING SCALE SQ 08/01/17 08:00 (Romazicon Inj) 0.2 mg Q1M PRN IV PUSH 07/31/17 21:15 (Ativan) 1 mg Q4H PRN PO 07/31/17 21:15 (Ativan Inj) 1 mg Q4H PRN IV PUSH 07/31/17 21:15 (Ativan) 2 mg Q2H PRN PO 07/31/17 21:15 (Ativan Inj) 2 mg Q2H PRN IV PUSH 07/31/17 21:15 (Ativan Inj) 2 mg Q1H PRN IV PUSH 07/31/17 21:15 (Ativan Inj) 2 mg Q15M PRN IV PUSH 07/31/17 21:15 (Vitamin B1) 100 mg DAILY PO 07/31/17 21:15 08/04/17 09:56 (Vasotec Inj) 1.25 mg Q6H PRN IV PUSH 08/01/17 00:00 08/03/17 08:33 (Ultram) 50 mg Q4H PRN PO 08/01/17 20:30 Ceftriaxone Sodium 2000 mg/ Sodium Chloride 100 ml @ 200 mls/hr Q24H IV 08/02/17 21:00 08/03/17 21:40 (Flagyl) 500 mg Q6HR PO 4/1/18 00:00 08/04/17 13:02 (Norvasc) 10 mg DAILY PO 08/03/17 09:00 08/04/17 09:56 (Catapres) 0.1 mg Q8HR PO 08/03/17 14:00 08/04/17 13:03 Lines PIV with no evidence of infection Past Medical History DM Diabetic neuropathy asthma HTN Hypothyroid Gout Past Surgical History right tib fib repair testicle repair Allergies: Coded Allergies: No Known Allergies (Verified Allergy, Unknown, 07/31/17) Objective . Vital Signs Date Time Temp Pulse Resp B/P (MAP) Pulse Ox O2 Delivery O2 Flow Rate FiO2 08/07/17 11:33 97.6 57 18 138/86 (103) 98 08/07/17 07:40 98.1 55 18 126/74 (91) 96 08/07/17 04:00 97.6 60 20 153/77 (102) 99 08/07/17 00:04 97.5 60 20 164/80 (108) 98 08/06/17 20:10 97.2 68 20 159/77 (104) 100 08/06/17 16:00 96.3 70 18 139/77 (97) 97 . Laboratory Tests Test 08/06/17 03:45 White Blood Count 8.6 TH/MM3 Red Blood Count 3.99 MIL/MM3 Hemoglobin 12.5 GM/DL Hematocrit 36.9 % Mean Corpuscular Volume 92.5 FL Mean Corpuscular Hemoglobin 31.4 PG Mean Corpuscular Hemoglobin Concent 33.9 % Red Cell Distribution Width 14.4 % Platelet Count 164 TH/MM3 Mean Platelet Volume 8.2 FL Neutrophils (%) (Auto) 79.1 % Lymphocytes (%) (Auto) 11.8 % Monocytes (%) (Auto) 8.7 % Eosinophils (%) (Auto) 0.1 % Basophils (%) (Auto) 0.3 % Neutrophils # (Auto) 6.8 TH/MM3 Lymphocytes # (Auto) 1.0 TH/MM3 Monocytes # (Auto) 0.8 TH/MM3 Eosinophils # (Auto) 0.0 TH/MM3 Basophils # (Auto) 0.0 TH/MM3 CBC Comment DIFF FINAL Differential Comment Laboratory Tests Test 08/06/17 03:45 Blood Urea Nitrogen 22 MG/DL Creatinine 1.20 MG/DL Random Glucose 135 MG/DL Albumin 3.0 GM/DL Calcium Level 8.7 MG/DL Phosphorus Level 3.2 MG/DL Magnesium Level 2.1 MG/DL Sodium Level 136 MEQ/L Potassium Level 4.1 MEQ/L Chloride Level 106 MEQ/L Carbon Dioxide Level 19.9 MEQ/L Anion Gap 10 MEQ/L Estimat Glomerular Filtration Rate 63 ML/MIN Microbiology Date/Time Source Procedure Growth Status 08/05/17 14:47 Wound Foot Fungal Smear - Final NO FUNGAL ELEMENTS SEEN. Resulted 08/05/17 14:47 Wound Foot Fungal Culture Pending Resulted 08/05/17 14:47 Wound Foot Acid Fast Stain - Final NO ACID FAST BACILLI SEEN Resulted 08/05/17 14:47 Wound Foot Mycobacterial Culture Pending Resulted 08/05/17 14:47 Wound Foot Gram Stain - Final Complete 08/05/17 14:47 Wound Foot Wound Culture - Final Complete Imaging Last Impressions Foot X-Ray 07/31/17 1529 Signed Impressions: Service Date/Time: July 15:40 - CONCLUSION: No acute fracture or joint dislocation. Primary degenerative changes with mild soft tissue swelling. Agus Esparza MD Foot MRI 07/31/17 0000 Signed Impressions: Service Date/Time: July 22:01 - CONCLUSION: 1. Soft tissue ulceration plantar to the second and third metatarsophalangeal joints. There is a 9 x 9 x 18 mm abscess in between the distal second and third metatarsals and suspected early septic arthropathy of the second and third metatarsophalangeal joints. However, no evidence of osteomyelitis at this time. 2. There is chronic appearing arthropathy of the first metatarsophalangeal joint and sesamoids, also without definite osteomyelitis. Cecilio Salter MD Physical Exam GENERAL: WDWN male, INAD. Awake and alert. Appears comfortable. SKIN: Cool and dry. No generalized rash HEAD: Atraumatic. Normocephalic. EYES: [place] conjunctiva. No petechia or hemorrhage. Extraocular movements full and intact. No scleral icterus. No injection or drainage. EARS, NOSE AND THROAT: Nose without bleeding or purulent nasal discharge. No sinus tenderness. Mucous membranes pink and moist. No oral lesions noted. No exudate. No oral thrush. NECK: Trachea midline. CARDIOVASCULAR: Regular rate and rhythm. No murmurs, rubs or gallops heard RESPIRATORY: Clear to auscultation. Breath sounds equal bilaterally. No rales , wheezing or rhonchi ABDOMEN: Soft, non-tender, nondistended. Bowel sounds present and normoactive. No guarding. EXTREMITIES: No clubbing, cyanosis, or edema. L foot in postop dressing, able to wiggle toes. No calf tenderness. NEUROLOGICAL: Alert and awake. Oriented to place, person. PSYCHIATRIC: Normal affect, calm and cooperative. LINE: No evidence of infection Assessment & Plan Remarks Remarks L foot infection, with cellulitis and plantar abscess Septic second MPJ -No evidence of osteo-per MRI -CRP 14 -S/P bedside I&D 08/01/17 with cx positive for Leclercia adecarboxylata and staph -S/p I&D 08/05/[address] Wild and per discussion septic 2nd MPJ with deep abscess, no obvious e/o osteo -Intraop wound cx with light growth normal skin sharri to date, no path pending -Fungal smear final no fungal elements seen, Blood cultures negative DM Mild elevation LFT Recommendations Blood cultures no growth to date Patient clinically appears improved Currently on Rocephin IV, p.o. Flagyl. Further recommendations to follow. Will recommend antibiotic for DC Simon Walker Aug 07, 2017 14:01
[2017-08-07] MEDS ORDERED: EPIN1INJ21 SQ (14:44)
[2017-08-07] MEDS ORDERED: CEFT2INJ IV (14:44)
[2017-08-07] MEDS ORDERED: SOLU250I IV PUSH (14:44)
[2017-08-07] MEDS ORDERED: EPIN1INJ21 IV PUSH (14:44)
--- NOTE | 2017-08-07 14:50 | HHI.FF ---
cc: Chantal Castillo MD Infusion Therapy Location of Infusion Therapy: Ambulatory Infusion Therapy Order Patient Information Appointment Date: Aug 07, 2017 Patient Weight 103 kg Diagnosis: Diagnosis Septic MTP joint Coded Allergies: No Known Allergies (Verified Allergy, Unknown, 07/31/17) Administer Medication Ceftriaxone 2 grams IV q 24 hours Start Treatment: Aug 07, 2017 Stop Treatment: September 12, 2017 Additional Information Venous access: PICC Line Additional Instructions [x] Peripheral flush and dressing changes per protocol [x] Implanted port and central pipelines manager: * Implanted port: 10 ml Normal Saline followed by 5 ml Heparin 100 units/ml Heparin flush after each use and monthly to maintain. [] May leave port accessed during therapy. [] May leave peripheral site accessed for duration of therapy. [x] If patient has SOB or respiratory distress, check oxygen saturation. If less than 90% or clinical signs of respiratory distress, administer oxygen at 2 L/min. via nasal cannula and notify physician. [x] Anaphylaxis/Reaction orders: * Stop infusion. * Keep IV line open with saline flush. * Notify physician. * Monitor vital signs every 15 minutes until symptoms resolve. * Check Oxygen saturation; Oxygen at 2 L/min. via nasal cannula if less than 90% or clinical signs of respiratory distress. * Administer diphenhydramine (Benadryl) 25 mg IV STAT, (unless patient has received as pre-med). May repeat once, if necessary. * Solu-Cortef 250 mg IVP over 30-60 seconds, use 100 mg vials for each dissolution. * Epinephrine (1mg/1 ml) 0.3 mg subcutaneously or IVP now with any signs of respiratory distress. * Check with physician for new additional pre-med orders if patient is re- challenged or re-treated. [x] May remove PICC line when treatment complete, after confirming with Physician. [x] If the patient is admitted to the hospital, the ED, or transferred via [facility] , complete transfer form including medication reconciliation order sheet. Laboratory Tests Weekly Labs: CBC w/diff, Creatinine, CRP, LFT's (Hepatic function test) Additional Information Call with abnormals, change in clinical condition or problems to: or Covering ID Physician Follow up appt: Follow up with PCP Follow up with other MDs as planned. Counseling: Counseled about medication side effects Counseled about PICC line care and hand hygiene. Maday Vargas MD Aug 07, 2017 14:50
[2017-08-07] MEDS ORDERED: METR-1 PO (15:00)
[2017-08-07 16:32] VITALS: BP 122/72; PULSE 66; RESP 18; TEMP 98; O2SAT 98
--- NOTE | 2017-08-07 16:38 | PD.POD ---
Subjective Pain score: 2 Remarks Doing well rate and go home Past Med/Surg/Social History Past Medical History HEENT: DENIES HX OF: Cataracts, Glaucoma, Recurrent ear infections, Recurrent sinusitis, Other HEENT history Endocrine: REPORTS HX OF: Diabetes mellitus, Hypothyroidism, DENIES HX OF: Graves disease, Hyperthyroidism, Other endocrine history Respiratory: DENIES HX OF: Allergies/hay fever, Asthma, COPD, CPAP use, Sleep apnea, Other respiratory history Cardiovascular: REPORTS HX OF: Hyperlipidemia, Hypertension, DENIES HX OF: Abdominal aortic aneurysm, Angina, Atrial fibrillation, Cardiac arrhythmias, Coronary artery disease, Deep venous thrombosis, Heart failure, Heart valve disease, Myocardial infarction, Peripheral vascular dz, Other CV history Gastrointestinal: DENIES HX OF: Colitis, GERD, Irritable bowel syndrome, Liver disease, Pancreatitis, Peptic ulcer disease, Other GI history Genitourinary - male: DENIES HX OF: Benign prost. hyperplasia, Erectile dysfunction, Prostatitis, Testicular problems, Undescended testicle Musculoskeletal: REPORTS HX OF: Fractures (right ankle fracture), DENIES HX OF : Fibromyalgia, Gout, Osteoarthritis, Osteoporosis, Rheumatoid arthritis, Other musculoskeletal hx Cancer/Hematology: DENIES HX OF: Anemia, Bladder Cancer, Blood cancer, Brain cancer, Breast cancer, Colorectal cancer, Endocrine cancer, Eye cancer, GI cancer, cancer, Kidney cancer, Leukemia, Liver cancer, Lung cancer, Lymphoma , Musculoskeletal cancer, Neurologic cancer, Oral cancer, Skin cancer, Stomach cancer, Thyroid cancer, Other cancer/hematology Cancer - male: DENIES HX OF: Prostate cancer, Testicular cancer Infectious disease: DENIES HX OF: AIDS, Chickenpox, Hepatitis, HIV, Measles, MRSA, Mumps, Polio, Positive PPD, Rheumatic fever, Rubella, Syphilis, Tuberculosis, Vanc-resistant enterococc, Other inf disease history Integumentary: DENIES HX OF: Acne, Eczema, Psoriasis, Other integumentary hx Neurologic: DENIES HX OF: ADHD, Autism, Dementia, Developmental delay, Headaches, Multiple sclerosis, Parkinson disease, Peripheral neuropathy, Restless leg syndrome, Seizures, Stroke, Transient ischemic attack, Other neurologic history Psychiatric: DENIES HX OF: Anorexia nervosa, Anxiety, Bipolar disorder, Bulimia , Depression, Schizophrenia, Other psychiatric history Genetic/metabolic: DENIES HX OF: Cystic fibrosis, Down syndrome, Other genetic history, Other metabolic history Events: DENIES HX OF: Anaphylaxis, Gunshot wound, Motor vehicle accident, Other events Disabilities: DENIES HX OF: Hearing deficit, Vision deficit, Hemiparesis, Paraplegia, Quadriplegia, Other disabilities Past Surgical History HEENT: DENIES HX OF: Cataract extraction, Dental surgery, Laryngectomy, Tonsillectomy, Other head surgery, Other eye surgery, Other ear surgery, Other nasal surgery, Other throat surgery Endocrine: DENIES HX OF: Parathyroidectomy, Thyroid surgery, Other endocrine surgery Respiratory: DENIES HX OF: Bronchoscopy, Lobectomy, Other chest surgery Cardiovascular: DENIES HX OF: Angiogram, Angioplasty, CABG surgery, Carotid endarterectomy, Coronary stent, Heart transplant, Pacemaker, Valve replacement, Other cardiac surgery Gastrointestinal: DENIES HX OF: Appendectomy, Cholecystectomy, Colectomy, subtotal, Colectomy, total, Gastric bypass, Hernia repair, Splenectomy, Other GI surgery Genitourinary: DENIES HX OF: Bladder surgery, Kidney stone extraction, Nephrectomy, Other surgery Genitourinary - male: DENIES HX OF: Prostatectomy, TURP, Vasectomy Musculoskeletal: REPORTS HX OF: Other musculoskeletal srg (right ankle surgery) Integumentary: DENIES HX OF: Skin cancer removal, Other integumentary surg Neurologic: DENIES HX OF: Craniotomy, Spinal surgery, Other neurologic surgery Breast: DENIES HX OF: Breast biopsy, Lumpectomy, Mastectomy, bilateral, Mastectomy, left, Mastectomy, right, Other breast surgery Social History Smoking Status: Never Smoker Objective Vital Signs Vital Signs Date Time Temp Pulse Resp B/P (MAP) Pulse Ox O2 Delivery O2 Flow Rate FiO2 08/07/17 16:32 98.0 66 18 122/72 (89) 98 08/07/17 11:33 97.6 57 18 138/86 (103) 98 08/07/17 07:40 98.1 55 18 126/74 (91) 96 08/07/17 04:00 97.6 60 20 153/77 (102) 99 08/07/17 00:04 97.5 60 20 164/80 (108) 98 08/06/17 20:10 97.2 68 20 159/77 (104) 100 Coded Allergies: No Known Allergies (Verified Allergy, Unknown, 07/31/17) Medications and IVs Administered Medications Medications (Trade) Dose Ordered Sig/Richard Route PRN Reason Start Time Stop Time Status Last Admin Dose Admin Sodium Chloride (NS Flush) 2 ml BID IV FLUSH 07/31/17 21:00 08/07/17 09:40 Senna/Docusate Sodium (Rivka-Colace) 1 tab BID PO 07/31/17 21:00 08/07/17 09:35 Thiamine HCl (Vitamin B1) 100 mg DAILY PO 07/31/17 21:15 08/07/17 09:35 Enalaprilat (Vasotec Inj) 1.25 mg Q6H PRN IV PUSH SBP>160, DBP>90 08/01/17 00:00 08/03/17 08:33 Tramadol HCl (Ultram) 50 mg Q4H PRN PO PAIN 1-10 08/01/17 20:30 08/05/17 22:49 Ceftriaxone Sodium 2000 mg/ Sodium Chloride 100 ml @ 200 mls/hr Q24H IV 08/02/17 21:00 08/06/17 21:44 Metronidazole (Flagyl) 500 mg Q6HR PO 08/03/17 00:00 08/07/17 12:20 Amlodipine Besylate (Norvasc) 10 mg DAILY PO 08/03/17 09:00 08/07/17 09:39 Clonidine (Catapres) 0.1 mg Q8HR PO 08/03/17 14:00 08/07/17 13:35 Lactated Ringer's 1,000 ml @ 100 mls/hr Q10H IV 08/05/17 11:00 08/05/17 12:36 Other Results Laboratory Tests Test 08/06/17 03:45 White Blood Count 8.6 TH/MM3 Red Blood Count 3.99 MIL/MM3 Hemoglobin 12.5 GM/DL Hematocrit 36.9 % Mean Corpuscular Volume 92.5 FL Mean Corpuscular Hemoglobin 31.4 PG Mean Corpuscular Hemoglobin Concent 33.9 % Red Cell Distribution Width 14.4 % Platelet Count 164 TH/MM3 Mean Platelet Volume 8.2 FL Neutrophils (%) (Auto) 79.1 % Lymphocytes (%) (Auto) 11.8 % Monocytes (%) (Auto) 8.7 % Eosinophils (%) (Auto) 0.1 % Basophils (%) (Auto) 0.3 % Neutrophils # (Auto) 6.8 TH/MM3 Lymphocytes # (Auto) 1.0 TH/MM3 Monocytes # (Auto) 0.8 TH/MM3 Eosinophils # (Auto) 0.0 TH/MM3 Basophils # (Auto) 0.0 TH/MM3 CBC Comment DIFF FINAL Differential Comment Laboratory Tests Test 08/06/17 03:45 Blood Urea Nitrogen 22 MG/DL Creatinine 1.20 MG/DL Random Glucose 135 MG/DL Albumin 3.0 GM/DL Calcium Level 8.7 MG/DL Phosphorus Level 3.2 MG/DL Magnesium Level 2.1 MG/DL Sodium Level 136 MEQ/L Potassium Level 4.1 MEQ/L Chloride Level 106 MEQ/L Carbon Dioxide Level 19.9 MEQ/L Anion Gap 10 MEQ/L Estimat Glomerular Filtration Rate 63 ML/MIN Microbiology Date/Time Source Procedure Growth Status 08/05/17 14:47 Wound Foot Fungal Smear - Final NO FUNGAL ELEMENTS SEEN. Resulted 08/05/17 14:47 Wound Foot Fungal Culture Pending Resulted 08/05/17 14:47 Wound Foot Acid Fast Stain - Final NO ACID FAST BACILLI SEEN Resulted 08/05/17 14:47 Wound Foot Mycobacterial Culture Pending Resulted 08/05/17 14:47 Wound Foot Gram Stain - Final Complete 08/05/17 14:47 Wound Foot Wound Culture - Final Complete Patient: REDDY STRINGER #[id number] (Continued) Specimen: [id number] Collected: 07/31/17-1546 Received: 07/31/17-162 (Continued) Procedure Result Verified Site WOUND CULTURE Final (continued) 08/02/17-910 STA SOHA [facility]ARC[facility] RX --------- --- --------- --- PENICILLIN G >8 [place] AMPICILLIN <8 S AMOXICILLIN/K CLAVULANATE <8/4 S PIPERCILLIN/TAZOBACTAM <16 S AMPICILLIN/SULBACTAM <8/4 S OXACILLIN <0.25 S CEFAZOLIN <4 S 4 S CEFUROXIME <4 S CEFTRIAXONE <4 S <1 S CEFTAZIDIME <1 S CEFEPIME <2 S AZTREONAM <4 S ERTAPENEM <0.5 S IMIPENEM <1 S GENTAMICIN <1 S <4 S TOBRAMYCIN <4 S ERYTHROMYCIN >4 R CLINDAMYCIN 0.5 S DAPTOMYCIN 1 S VANCOMYCIN 2 S TETRACYCLINE <1 S <4 S CHLORAMPHENICOL <8 S TRIMETH/SULFA <0.5/9.5 S <2/38 S LEVOFLOXACIN <0.5 S <2 S LINEZOLID 4 S RIFAMPIN <1 S Exam-Podiatry Remarks Left foot plantar and dorsal incision loosely coapted with packing intact, upon removing packing decreased drainage noted no pus decreased swelling decreased erythema foot is warm improved. Assessment & Plan A/P Left foot puncture wound with abscess status post bedside I&D, and operative debridement Agree with discharge IV antibiotics per infectious disease Follow-up 1 week heel weight-bear only Reggie Wild DPM Aug 07, 2017 16:38
== END 2017-08-07 18:03 | disposition home health service (06) | DRG 623 ==
LOC: NEPE 10:13 → NEDA 17:58 → NEPGCP 19:40 → OBSVTOIN 08-03 10:51 → N03B 08-05 15:23
PROVIDERS: ADMIT Internal Medicine; ATTEND Internal Medicine
PROC: 0JBR0ZZ Excision of Left Foot Subcutaneous Tissue and Fascia, Open Approach (ICD-10-PCS; principal; 2017-08-01)
PROC: 0SBQ0ZZ Excision of Left Toe Phalangeal Joint, Open Approach (ICD-10-PCS; 2017-08-05)
PROC: 02HV33Z Insertion of Infusion Device into Superior Vena Cava, Percutaneous Approach (ICD-10-PCS; 2017-08-07)
DX: E11.628 Type 2 diabetes mellitus with other skin complications (principal); M00.072 Staphylococcal arthritis, left ankle and foot; L97.529 Non-pressure chronic ulcer of other part of left foot with unspecified severity; E11.42 Type 2 diabetes mellitus with diabetic polyneuropathy; E11.621 Type 2 diabetes mellitus with foot ulcer; D69.59 Other secondary thrombocytopenia; L03.116 Cellulitis of left lower limb; L02.612 Cutaneous abscess of left foot; E11.65 Type 2 diabetes mellitus with hyperglycemia; S91.332A Puncture wound without foreign body, left foot, initial encounter; B95.61 Methicillin susceptible Staphylococcus aureus infection as the cause of diseases classified elsewhere; I10 Essential (primary) hypertension; F10.20 Alcohol dependence, uncomplicated; M10.9 Gout, unspecified; J45.909 Unspecified asthma, uncomplicated; E03.9 Hypothyroidism, unspecified; F17.220 Nicotine dependence, chewing tobacco, uncomplicated; R74.0 Nonspecific elevation of levels of transaminase and lactic acid dehydrogenase [LDH]; W45.8XXA Other foreign body or object entering through skin, initial encounter; E78.5 Hyperlipidemia, unspecified; K21.9 Gastro-esophageal reflux disease without esophagitis; M19.90 Unspecified osteoarthritis, unspecified site; Z79.84 Long term (current) use of oral hypoglycemic drugs; Z91.120 Patient's intentional underdosing of medication regimen due to financial hardship
CPT/HCPCS: 36569; 73630; 73720; 76937; 80048; 80053; 80069; 80202; 82948; 83036; 83605; 83735; 85025; 85652; 86140; 86403; 87015; 87040; 87070; 87077; 87102; 87116; 87147; 87176; 87186; 87205; 87206; 93005; 96365; 96366; 96367; 96368; 96375; 96376; A9579; G0378; J0696; J1100; J1885; J2370; J2405; J2543; J2710; J3010; J3370; J7030; J7040; J7120; L3260

== ENCOUNTER 2017-11-15 03:21 | Observation (INO) ==
--- NOTE | 2017-11-15 03:57 | ED ---
HPI General Chief Complaint: Chest Pain Stated Complaint: Resp/Cardiac Time Seen by Provider: 11/15/17 03:38 Source: patient Mode of arrival: ambulatory Limitations: no limitations History of Present Illness HPI narrative: Patient reports that he has had chest pain that came upon him while he was resting tonight left-sided radiates up his neck patient is diaphoretic slightly nauseous patient comes in with a blood pressure of 228/113 he looks like someone who is having an ischemic event patient is given nitro sublingual 4 baby aspirin chewed EKG is done that shows normal sinus rhythm he does not have any elevations or depressions at this time. Patient has a history of hypertension he is not being treated at this time by . he is in between insurance he has no coverage and no Dr. family history his brother had heart attack at 53 his father also had a heart attack in his 50s pain started suddenly while he was at rest he thought it was related to his asthma which he has had worsening over the last few days he also has a history of pneumonia denies fever at triage his heart rate is tachycardic at 124 he is afebrile complaint: chest pain Complete Quality Measures for STEMI Alert Patients Onset (ago): hour(s) (1 hr) Time: 01:56 Duration: constant Onset: during rest Pain location: left chest Severity: severe Severity scale (1-10): 9 Quality: heaviness Pain radiation: neck Relieving factors: nothing Associated symptoms: nausea, diaphoresis and cough Related Data Home Medications Medication Instructions Recorded Confirmed albuterol sulfate [Ventolin HFA] 2 puff INHALATION Q4H PRN 11/15/17 11/15/17 amlodipine 2.5 mg PO DAILY 11/15/17 11/15/17 levothyroxine 75 mcg PO DAILY 11/15/17 11/15/17 metformin 500 mg PO BID 11/15/17 11/15/17 Allergies Allergy/AdvReac Type Severity Reaction Status Date / Time No Known Allergies Allergy Unknown Uncoded 09/12/17 11:32 Review of Systems Except as stated in HPI: all other systems reviewed are negative Cardiovascular Reports chest pain, Reports chest pain at rest and Reports radiating jaw, neck or arm pain PMFSH Medical History Medical History Asthma (Acute) Diabetes (Acute) HTN (hypertension) (Acute) Hypothyroid (Acute) Social History Social History Substance History: Active Abuse Second Hand Smoke Exposure: No Smoking Status: Never smoker How Often Do You Have a Drink Containing Alcohol: 4 or more times a week Recent Travel in [place] within the Last 8 Weeks: No Recent Out of Country Travel within the Last 8 Weeks: No Substance Abuse Detail Crack/Cocaine: Substance Use Status: Active Route Used Substance Abuse: Inhalation Substance Frequency: last used on Fri. Reason for Use: Socialization Immunization History Tetanus Immunization: Unsure Exam Narrative Exam Narrative: GENERAL: tachycardiac 228 SBP=htn and LEFT CP diaphoretic skin SKIN: Focused skin assessment cool diaphoretic HEAD: Atraumatic. Normocephalic. EYES: Pupils equal and round. No scleral icterus. No injection or drainage. ENT: No nasal bleeding or discharge. Mucous membranes pink and moist. NECK: Trachea midline. No JVD. CARDIOVASCULAR: tachycardia and hypertensive RESPIRATORY: No accessory muscle use. Clear to auscultation. Breath sounds equal bilaterally. GASTROINTESTINAL: Abdomen soft, non-tender, nondistended. Hepatic and splenic margins not palpable. MUSCULOSKELETAL: No obvious deformities. No clubbing. No cyanosis. No edema. NEUROLOGICAL: Awake and alert. No obvious cranial nerve deficits. Motor grossly within normal limits. Normal speech. PSYCHIATRIC: Appropriate mood and affect; insight and judgment normal. Course Reevaluation(s) Reevaluation #1: first troponin is negative pt feel no CP after nitro and his SBP came down from 228 to 147 pain free admit chest pain center serial trop and EKG and stress test Initial Documented Vital Signs Temperature 98.5 F 11/15/17 03:32 Pulse Rate 115 H 11/15/17 03:32 Respiratory Rate 28 H 11/15/17 03:32 Blood Pressure 192/114 H 11/15/17 03:32 Pulse Oximetry 98 11/15/17 03:32 Last Documented Vital Signs Temperature 98.6 F 11/15/17 06:22 Pulse Rate 92 H 11/15/17 06:22 Respiratory Rate 19 11/15/17 06:22 Blood Pressure 155/89 H 11/15/17 06:22 Pulse Oximetry 98 11/15/17 04:59 Critical Care Time Critical Care Time: Yes Total Critical Care Time: 30 Attestation: Patient is evaluated emergently immediately for ST elevation EKG is normal hypertensive control is given with nitroglycerin vasodilation nitroglycerin paste aspirin is given to anticoagulate as well as given nitroglycerin to vasodilator lower his BP is evaluation of troponin close observation to see if he needed catheterization EKG is negative first troponin is negative BP comes down nicely with nitroglycerin he is safe for admission to chest pain center Medical Decision Making MDM Narrative Medical decision making narrative: Patient is immediate evaluated for possible STEMI he presents diaphoretic left-sided chest pain radiating to the neck hypertensive systolic pressure was 228 nitroglycerin relieves the pain lowers the blood pressure EKG is negative for ST elevation he is admitted to chest pain center troponin is negative aspirin 324 is given nitroglycerin paste sublingual nitro to control the pressure vasodilate coronary arteries and prevent any further coagulation aspirin is given admit to chest pain center Differential Diagnosis Differential Diagnosis: Differential diagnosis includes acute chest pain due to ischemia versus GERD versus pneumothorax versus pneumonia versus gastric gastritis versus costochondritis muscle spasm Lab Data Result diagrams: 11/15/17 04:30 11/15/17 04:30 Lab Results 11/15/17 11/15/17 11/15/17 Range/Units 04:30 04:30 04:30 WBC 7.0 (4.0-11.0) th/mm3 RBC 4.03 L (4.50-5.90) mil/mm3 Hgb 13.6 (13.0-17.0) gm/dL Hct 40.4 (39.0-51.0) % MCV 100.3 H (80.0-100.0) fL MCH 33.8 (27.0-34.0) pg MCHC 33.7 (32.0-36.0) % RDW 17.2 (11.6-17.2) % Plt Count 111 L (150-450) th/mm3 MPV 7.4 (7.0-11.0) fL Neut % (Auto) 61.7 (16.0-70.0) % Lymph % (Auto) 24.9 (9.0-44.0) % [place] % (Auto) 10.2 H (0.0-8.0) % Eos % (Auto) 2.6 (0.0-4.0) % Baso % (Auto) 0.6 (0.0-2.0) % Neut # (Auto) 4.3 (1.8-7.7) th/mm3 Lymph # (Auto) 1.7 (1.0-4.8) th/mm3 [place] # (Auto) 0.7 (0.0-0.9) th/mm3 Eos # (Auto) 0.2 (0.0-0.4) th/mm3 Baso # (Auto) 0.0 (0.0-0.2) th/mm3 WBC Differential . Differential Comment Auto diff final PT 11.6 (9.8-11.6) sec INR 1.1 Ratio APTT 26.2 (24.3-30.1) sec Sodium 139 (136-145) meq/L Potassium 3.9 (3.5-5.1) meq/L Chloride 105 (98-107) meq/L Carbon Dioxide 19.7 L (21.0-32.0) meq/L Anion Gap 14 (5-15) meq/L BUN 11 (7-18) mg/dL Creatinine 1.41 H (0.60-1.30) mg/dL Estimated GFR 53 L (>89) mL/min Random Glucose 116 H (74-106) mg/dL Calcium 8.5 (8.5-10.1) mg/dL Magnesium 2.1 (1.5-2.5) mg/dL Total Creatine Kinase 161 (39-308) U/L CK-MB (CK-2) 1.4 (0.5-3.6) ng/mL Troponin I Less than 0.02 L (0.02-0.05) ng/mL Imaging Data Radiologist's impression: Chest X-Ray 11/15/17 03:48 CONCLUSION: No acute disease ECG Data EKG Prior to Arrival: No Attestation: I personally reviewed and interpreted this ECG as follows: (Sinus tachy 108 bpm no obvious elevations nor depressions) Discharge Plan Discharge Disposition Patient Disposition: 30 Still Patient Discharge Details Diagnosis: Chest pain Physicians Team ED Provider: Mynor Yin Primary Care Provider: Primary Care Liss Webb Attending Provider: James Hill Status ED Status: Admitted Observation Patient
[2017-11-15 04:39] LABS: Baso % (Auto) 0.6 % (0.0-2.0); Eos # (Auto) 0.2 th/mm3 (0.0-0.4); Eos % (Auto) 2.6 % (0.0-4.0); Hematocrit 40.4 % (39.0-51.0); Hemoglobin 13.6 gm/dL (13.0-17.0); Lymph # (Auto) 1.7 th/mm3 (1.0-4.8); Lymph % (Auto) 24.9 % (9.0-44.0); Mean Corpuscular HGB Conc 33.7 % (32.0-36.0); Mean Corpuscular Hemoglobin 33.8 pg (27.0-34.0); Mean Corpuscular Volume 100.3 fL (80.0-100.0); Mean Platelet Volume 7.4 fL (7.0-11.0); Mono # (Auto) 0.7 th/mm3 (0.0-0.9); Mono % (Auto) 10.2 % (0.0-8.0); Neut # (Auto) 4.3 th/mm3 (1.8-7.7); Neut % (Auto) 61.7 % (16.0-70.0); Platelet Count 111 th/mm3 (150-450); Red Blood Count 4.03 mil/mm3 (4.50-5.90); Red Cell Distribution Width 17.2 % (11.6-17.2)
[2017-11-15 04:53] LABS: Activated Partial Thrombo Time 26.2 sec (24.3-30.1); INR 1.1 Ratio; Prothrombin Time 11.6 sec (9.8-11.6)
--- NOTE | 2017-11-15 05:09 | XR ---
EXAM DATE: 11/15/2017 4:43 AM EDT AGE/SEX: 52 years / Male INDICATIONS: Chest pain. CLINICAL DATA: This is the patient's initial encounter. Patient reports that signs and symptoms have been present for 1 day and indicates a pain score of 7/10. MEDICAL/SURGICAL HISTORY: . Hypertension. Diabetes mellitus type 2. . Right ankle sx, Surgery. to testicles COMPARISON: [facility] [place], CHEST PA & LAT, 08/25/2015. . FINDINGS: A single AP view of the chest demonstrates the lungs to be symmetrically aerated without evidence of mass, infiltrate or effusion. The cardiomediastinal contours are unremarkable. Osseous structures a re intact. CONCLUSION: No acute disease Electronically signed by: Cecilio Farrell MD 11/15/2017 5:08 AM EDT
[2017-11-15 05:12] LABS: Anion Gap 14 meq/L (5-15); Blood Urea Nitrogen 11 mg/dL (7-18); Calcium 8.5 mg/dL (8.5-10.1); Carbon Dioxide 19.7 meq/L (21.0-32.0); Chloride 105 meq/L (98-107); Glomerular Filtration Rate 53 mL/min (>89); Glucose,Random 116 mg/dL (74-106); Magnesium 2.1 mg/dL (1.5-2.5); Potassium 3.9 meq/L (3.5-5.1); Sodium 139 meq/L (136-145)
[2017-11-15 05:15] LABS: Creatine Kinase 161 U/L (39-308)
[2017-11-15 05:27] LABS: Creatine Kinase MB 1.4 ng/mL (0.5-3.6)
[2017-11-15 07:29] LABS: Creatine Kinase 158 U/L (39-308)
[2017-11-15] MEDS ORDERED: Acetaminophen 500 MG Tablet PO PRN (07:49)
--- NOTE | 2017-11-15 08:13 | ECG ---
Date Performed: 11/15/2017 Time Performed: 06:16:35 PTAGE: 52 years EKG: Sinus rhythm MINIMAL VOLTAGE CRITERIA FOR LVH, CONSIDER NORMAL VARIANT INFERIOR MYOCARDIAL INFARCTION ABNORMAL EC G PREVIOUS TRACING : 11/15/2017 03.42 DOCTOR: Citlaly Cardoza Interpretating Date/Time 11/15/2017 08:13:21
--- NOTE | 2017-11-15 08:16 | ECG ---
Date Performed: 11/15/2017 Time Performed: 03:42:32 PTAGE: 52 years EKG: SINUS TACHYCARDIA MINIMAL VOLTAGE CRITERIA FOR LVH, CONSIDER NORMAL VARIANT INFERIOR MYOCAR DIAL INFARCTION ABNORMAL ECG INTERPRETATION BASED ON A DEFAULT AGE OF 40 YEARS PREVIOUS TRACING : 08/05/2017 04.53 DOCTOR: Citlaly Cardoza Interpretating Date/Time 11/15/2017 08:15:09
[2017-11-15 10:32] LABS: Creatine Kinase 122 U/L (39-308)
--- NOTE | 2017-11-15 10:49 | P.HPCA ---
History of Present Illness Service: Chest pain center Primary Care Physician: No Primary Care Physician Patient used the clinic at one time but is had no care for the last 3 or more years. He plans to apply at [place] Chief Complaint: Chest pain and shortness of breath History of Present Illness: 52-year-old white male who reports that over the last week he has been feeling "blah" which he describes as short of breath, cough, lightheadedness and intermittent cold sweats. He has a lifelong history of asthma and attributed this to worsening of his asthma due to the hot weather. On he began to develop some discomfort in his left neck area which is described as a dull ache which is continued to the current time. Yesterday he developed lower left chest discomfort reported initially as a 9 out of 10 but described by the patient currently as a 2 out of 10. This discomfort was intermittent lasting for 5 or so minutes at a time but did seem to be associated with increased diaphoresis shortness of breath lightheadedness and even nausea with dry heaves. He became concerned when he noticed that walking even to his gait created increased shortness of breath diaphoresis and nausea. His history is complicated by the fact that he took 2 lines of cocaine the day previous after being drug free for about 2 years. He has a strong family history father dying at age 82 but having his first heart attack in his 50s and a brother who also had a heart attack at 53. The patient is also hypertensive for many years and diabetic. He has had no access to medications now for several years Inpatient Certification: I certify that the inpatient services were ordered in accordance with Medicare regulations governing the order. This includes certification that hospital inpatient services are reasonable and necessary and in the case of services not specified as inpatient-only under 42 CFR 419.22(n), that they are appropriately provided as inpatient services in accordance to with the 2-midnight benchmark under 43 CFR 412.3(e) Review of Systems All other systems reviewed negative except as stated in HPI PMF - History History Provided By: Patient - Medical History Medical History: Medical History (Last Updated 11/15/17 @ 10:42 by Brandin Dinero MD) Diabetes (Acute) Hypothyroid (Acute) Asthma (Acute) HTN (hypertension) (Acute) Metal bone fixation hardware in place Testicular injury - Family History Family History: Family History (Last Updated 11/15/17 @ 10:42 by Brandin Dinero MD) Other Family history of acute myocardial infarction - Tobacco History Second Hand Smoke Exposure: No Smoking Status: Never smoker - Alcohol History How Often Do You Have a Drink Containing Alcohol: 4 or more times a week ( Drinks 4-5 beers a day) - Substance Use History Substance History: Active Abuse - Substance Use Type Crack/Cocaine Status: Active Route Used: Inhalation Frequency: last used on Fri. Reason for Use: Socialization - Travel History Recent Travel in the [facility] [place] Within the Last 8 Weeks: No Recent Travel Out of the Country Within the Last 8 Weeks: No - Immunization History Tetanus Immunization: Unsure Medications and Allergies Active Medications: Active Medications Acetaminophen (Tylenol) 500 mg PO Q4H PRN PRN Reason: HEADACHE Aspirin (Aspirin) 325 mg PO DAILY GINA Nitroglycerin (Nitrostat Sl) 0.4 mg SL Q5M PRN PRN Reason: CHEST PAIN Sodium Chloride (Ns Flush) 2 ml IV.FLUSH BID GINA Sodium Chloride (Ns Flush) 2 ml IV.FLUSH PRN PRN PRN Reason: FLUSH AFTER USING IV ACCESS Allergies Allergy/AdvReac Type Severity Reaction Status Date / Time No Known Allergies Allergy Unknown Uncoded 09/12/17 11:32 Home Medications Medication Instructions Recorded Confirmed Type albuterol sulfate [Ventolin HFA] 2 puff INHALATION Q4H PRN 11/15/17 11/15/17 History amlodipine 2.5 mg PO DAILY 11/15/17 11/15/17 History levothyroxine 75 mcg PO DAILY 11/15/17 11/15/17 History metformin 500 mg PO BID 11/15/17 11/15/17 History Exam Vital signs: Vital Signs 11/15/17 03:32 11/15/17 03:46 11/15/17 03:57 Temperature 98.5 F 98.4 F Pulse Rate 115 H 120 H Respiratory Rate 28 H 24 Blood Pressure 192/114 H 228/118 H Pulse Oximetry 98 97 97 11/15/17 03:59 11/15/17 04:05 11/15/17 04:59 Temperature Pulse Rate 111 H 102 H Respiratory Rate 20 20 Blood Pressure 200/87 H 147/98 H Pulse Oximetry 97 98 98 11/15/17 06:22 11/15/17 07:36 11/15/17 08:18 Temperature 98.6 F Pulse Rate 92 H 89 Respiratory Rate 19 20 Blood Pressure 155/89 H 165/89 H Pulse Oximetry 99 99 Intake & Output 11/14/17 11/15/17 11/15/17 18:59 06:59 18:59 Weight 85 kg Narrative: Well-nourished well-developed man sitting upright on a gurney Skin warm and dry Head normocephalic atraumatic Eyes PERRLA EOMI sclera clear Mouth mucous membranes moist tongue well papillated teeth in reasonable state of repair no lesions Neck supple no JVD masses nodes or bruits Chest good breath sounds bilaterally with no rales wheezes or rhonchi Cardiovascular regular rhythm with no gallops rubs or murmurs Abdomen soft but difficult to examine in upright stretcher position but no tenderness guarding rebound and no masses Extremities no clubbing cyanosis or edema pulses are intact Psychiatric appears to be appropriate neurologic cranial nerves intact motor strength to all extremities is good Results 11/15/17 04:30 11/15/17 04:30 Cardiac Enzymes 11/15/17 11/15/17 Range/Units 04:30 06:20 CK-MB (CK-2) 1.4 (0.5-3.6) ng/mL Troponin I Less than 0.02 L Less than 0.02 L (0.02-0.05) ng/mL Coagulation 11/15/17 Range/Units 04:30 PT 11.6 (9.8-11.6) sec APTT 26.2 (24.3-30.1) sec CBC 11/15/17 Range/Units 04:30 WBC 7.0 (4.0-11.0) th/mm3 RBC 4.03 L (4.50-5.90) mil/mm3 Hgb 13.6 (13.0-17.0) gm/dL Hct 40.4 (39.0-51.0) % Plt Count 111 L (150-450) th/mm3 Neut # (Auto) 4.3 (1.8-7.7) th/mm3 Lymph # (Auto) 1.7 (1.0-4.8) th/mm3 Desha # (Auto) 0.7 (0.0-0.9) th/mm3 Eos # (Auto) 0.2 (0.0-0.4) th/mm3 Baso # (Auto) 0.0 (0.0-0.2) th/mm3 Comprehensive Metabolic Panel 11/15/17 Range/Units 04:30 Sodium 139 (136-145) meq/L Potassium 3.9 (3.5-5.1) meq/L Chloride 105 (98-107) meq/L Carbon Dioxide 19.7 L (21.0-32.0) meq/L BUN 11 (7-18) mg/dL Creatinine 1.41 H (0.60-1.30) mg/dL Calcium 8.5 (8.5-10.1) mg/dL Intake and Output 11/14/17 11/15/17 11/15/17 22:59 06:59 14:59 Other: Weight 85 kg - EKG Interpretation EKG: WNL Caprini VTE Risk Assessment Caprini VTE Risk Assessment: No/Low Risk (score <= 1) Caprini Risk Assessment Model: Point Value = 1 Point Value = 2 Point Value = 3 Point Value = 5 Age 41-60 Minor surgery BMI > 25 kg/m2 Swollen legs Varicose veins or History of unexplained or recurrent spontaneous Oral contraceptives or hormone replacement Sepsis (< 1 month) Serious lung disease, including pneumonia (< 1 month) Abnormal pulmonary function Acute myocardial infarction Congestive heart failure (< 1 month) History of inflammatory bowel disease Medical patient at bed rest Age 61-74 Arthroscopic surgery Major open surgery (> 45 min) Laparoscopic surgery (> 45 min) Malignancy Confined to bed (> 72 hours) Immobilizing plaster cast Central venous access Age >= 75 History of VTE Family history of VTE Factor V Leiden Prothrombin [id number] Lupus anticoagulant Anticardiolipin antibodies Elevated serum homocysteine Heparin-induced thrombocytopenia Other congenital or acquired thrombophilia Stroke (< 1 month) Elective arthroplasty Hip, pelvis, or leg fracture Acute spinal cord injury (< 1 month) Prophylaxis Regimen: Total Risk Factor Score Risk Level Prophylaxis Regimen 0-1 Low Early ambulation 2 Moderate Order ONE of the following: *Sequential Compression Device (SCD) *Heparin 5000 units SQ BID 3-4 Higher Order ONE of the following medications: *Heparin 5000 units SQ TID *Enoxaparin/Lovenox 40 mg SQ daily (WT < 150 kg, CrCl > 30 mL/min) *Enoxaparin/Lovenox 30 mg SQ daily (WT < 150 kg, CrCl > 10-29 mL/min) *Enoxaparin/Lovenox 30 mg SQ BID (WT < 150 kg, CrCl > 30 mL/min) AND/OR *Sequential Compression Device (SCD) 5 or more Highest Order ONE of the following medications: *Heparin 5000 units SQ TID (Preferred with Epidurals) *Enoxaparin/Lovenox 40 mg SQ daily (WT < 150 kg, CrCl > 30 mL/min) *Enoxaparin/Lovenox 30 mg SQ daily (WT < 150 kg, CrCl > 10-29 mL/min) *Enoxaparin/Lovenox 30 mg SQ BID (WT < 150 kg, CrCl > 30 mL/min) AND *Sequential Compression Device (SCD) Assessment and Plan - Plan We will rule patient out for ACS using standard chest pain center protocol. Once ruled out obtain a nuclear stress test for further definitive evaluation prior to discharge. Patient has no outpatient physician but will be encouraged to develop follow-up with his daily health care since this was his choice. Will ask for renal case manager evaluation as well - Attending Attestation I certify that the inpatient services were ordered in accordance with Medicare regulations governing the order. This includes certification that hospital inpatient services are reasonable and necessary and in the case of services not specified as inpatient-only under 42 CFR 419.22(n), that they are appropriately provided as inpatient services in accordance to with the 2-midnight benchmark under 43 CFR 412.3(e)
[2017-11-15] MEDS ORDERED: Levothyroxine 75 MCG Tablet PO SCH (13:00)
[2017-11-15] MEDS ORDERED: amLODIPine 5 MG Tablet PO SCH (13:00)
[2017-11-15] MEDS ORDERED: Regadenoson Inj 0.4 MG/5 ML Syringe IV.PUSH ONE (13:50)
--- NOTE | 2017-11-15 15:21 | NM ---
EXAM DATE: 11/15/2017 3:10 PM EDT AGE/SEX: 52 years / Male INDICATIONS:Angina. Chest pain on Digoxin Left sided chest pain. CLINICAL DATA: This is the patient's initial encounter. Patient reports that signs and symptoms have been present for 2 days and indicates a pain score of 1/10. MEDICAL/SURGICAL HISTORY: Hypertension. Diabetes mellitus type II. Hypothyroidism. None. COMPARISON: No prior exams available for comparison. DOSE: 8.5 mCi Tc 99m Myoview at rest 26.8 mCi [id number] at stress 0.4 mg Lexiscan STRESS SYMPTOMS: None. EJECTION FRACTION: >70 % TECHNIQUE: The patient underwent pharmacologic stress with infusion of prescribed dose. Continuous ECG tracing was monitored during stress. Gated SPECT imaging was performed after stress and conventi onal SPECT imaging was performed at rest. The examination was performed on a SPECT/CT scanner, both attenuation and non-corrected datasets were reviewed. FINDINGS: Distribution: The maximum perfused segment at stress is in the septal wall. Perfusion Study: The pattern of perfusion at stress is within normal limits. Gated Study: There are intact wall motion and wall thickening without hypokinetic or dyskinetic segm ents. The ejection fraction is calculated at >70%. RISK CATEGORY: Low (<1% Annual Motality Rate) CONCLUSION: Unremarkable myocardial perfusion scan. Electronically signed by: James Sheffield MD 11/15/2017 3:20 PM EDT
[2017-11-16] MEDS ORDERED: Aspirin 325 MG Tablet PO SCH (09:00)
--- NOTE | 2017-11-17 12:22 | ECG ---
Date Performed: 11/15/2017 Time Performed: 09:27:26 PTAGE: 52 years EKG: Sinus rhythm PROLONGED QT INTERVAL ABNORMAL ECG PREVIOUS TRACING : 11/15/2017 06.16 DOCTOR: Citlaly Cardoza Interpretating Date/Time 11/17/2017 12:10:52
--- NOTE | 2017-11-17 17:47 | TR ---
Date Performed: 11/15/2017 Time Performed: 14:02:15 DOCTOR: Brandin Dinero DRUG LIST: CLINICAL HISTORY: REASON FOR TEST: REASON FOR ENDING: OBSERVATION: CONCLUSION: Lexiscan stress test was performed under standard four minute protocol. Radionuclide was injected one minute prior to ending the test. No electrocardiographic abormalities were present to suggest ischemia. Nuclear imaging and interpretation are pending. COMMENTS:
== END 2017-11-15 17:24 | disposition home or self-care (01) ==
LOC: NEPC 03:21 → NEDA 03:21 → NEPHCDU 03:21 → NEDH 09:09 → NEPHCDU 11:31
PROVIDERS: ADMIT Internal Medicine Cardiovascular Disease; ATTEND Internal Medicine Cardiovascular Disease
DX: R07.89 Other chest pain; R61 Generalized hyperhidrosis; I10 Essential (primary) hypertension; R42 Dizziness and giddiness; R11.0 Nausea; Z82.49 Family history of ischemic heart disease and other diseases of the circulatory system; E11.9 Type 2 diabetes mellitus without complications; R05 Cough; J45.909 Unspecified asthma, uncomplicated; E03.9 Hypothyroidism, unspecified; R06.02 Shortness of breath

== ENCOUNTER 2018-04-05 21:39 | Inpatient (IN) ==
[2018-04-05] MEDS ORDERED: ceFAZolin 2 GM Premix Inj 2 GM/50 ML PIGGYBACK IV.SIG ONE (21:45)
[2018-04-05] MEDS ORDERED: Diphtheria/Tetanus/Pertussis Vaccine Inj 0.5 ML Syringe IM ONE (21:46)
[2018-04-05 22:08] LABS: Baso # (Auto) 0.1 th/mm3 (0.0-0.2); Baso % (Auto) 0.7 % (0.0-2.0); Eos # (Auto) 0.2 th/mm3 (0.0-0.4); Eos % (Auto) 1.2 % (0.0-4.0); Hematocrit 39.4 % (39.0-51.0); Lymph # (Auto) 5.7 th/mm3 (1.0-4.8); Lymph % (Auto) 34.5 % (9.0-44.0); Mean Corpuscular HGB Conc 33.1 % (32.0-36.0); Mean Corpuscular Hemoglobin 32.6 pg (27.0-34.0); Mean Corpuscular Volume 98.6 fL (80.0-100.0); Mean Platelet Volume 7.2 fL (7.0-11.0); Mono # (Auto) 1.4 th/mm3 (0.0-0.9); Mono % (Auto) 8.4 % (0.0-8.0); Neut # (Auto) 9.2 th/mm3 (1.8-7.7); Neut % (Auto) 55.2 % (16.0-70.0); Platelet Count 202 th/mm3 (150-450); Red Blood Count 3.99 mil/mm3 (4.50-5.90); Red Cell Distribution Width 15.4 % (11.6-17.2); White Blood Count 16.6 th/mm3 (4.0-11.0)
[2018-04-05] MEDS ORDERED: Bupivacaine PF 0.25% Inj 30 ML Vial INFILTRATN ONE ×2 (22:09→22:15)
[2018-04-05] MEDS ORDERED: Lidocaine 1% Inj 50 ML Vial INFILTRATN ONE (22:09)
[2018-04-05] MEDS ORDERED: HYDROmorphone PF Inj 0.5 MG/0.5 ML Syringe IV.PUSH PRN (22:12)
--- NOTE | 2018-04-05 22:13 | XR ---
EXAM DATE: 04/05/2018 10:04 PM EST AGE/SEX: 89 years / Male INDICATIONS: Patient fell thru glass window from ladder. CLINICAL DATA: This is the patient's initial encounter. Patient reports that signs and symptoms have been present for 1 day and indicates a pain score of 10/10. MEDICAL/SURGICAL HISTORY: None. None. COMPARISON: No prior exams available for comparison. FINDINGS: A single AP view of the chest demonstrates the lungs to be symmetrically aerated without evidence of mass, infiltrate or effusion. The cardiomediastinal contours are unremarkable. Osseous structures a re intact. CONCLUSION: 1. Negative portable chest. Electronically signed by: Darnell Cervantes MD 04/05/2018 10:11 PM EST
--- NOTE | 2018-04-05 22:16 | XR ---
EXAM DATE: 04/05/2018 10:13 PM EST AGE/SEX: 89 years / Male INDICATIONS: Laceration right wrist. CLINICAL DATA: This is the patient's initial encounter. Patient reports that signs and symptoms have been present for 1 day and indicates a pain score of Nonresponsive. MEDICAL/SURGICAL HISTORY: Non-responsive. Non-responsive. COMPARISON: No prior exams available for comparison. FINDINGS: Extensive laceration of the wrist region. Osseous structures appear intact without definitive acute b ashkan fracture. Joint spaces are maintained. Carpal bones are grossly intact. CONCLUSION: 1. Extensive soft tissue laceration involving the wrist without acute fracture. Electronically signed by: Darnell Cervantes MD 04/05/2018 10:14 PM EST
[2018-04-05 22:17] LABS: Activated Partial Thrombo Time 26.7 sec (23.4-31.7); INR 1.2 Ratio; Prothrombin Time 12.5 sec (9.8-11.6)
[2018-04-05] MEDS ORDERED: Bupivacaine PF 0.5% Inj 10 ML Vial ONE (22:17)
[2018-04-05 22:29] LABS: Lymphocytes 38 % (9-44); Monocytes 4 % (0-8)
[2018-04-05 22:30] LABS: Platelet Estimate Normal (Normal); Platelet Morphology Normal (Normal)
[2018-04-05] MEDS: Sod Chloride 0.9% Inj 1,000 ML IV.CONT SCH (22:40)
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
[2018-04-05] MEDS ORDERED: Pantoprazole Inj 40 MG Vial IV.PUSH SCH (23:00)
--- NOTE | 2018-04-05 23:05 | ED ---
HPI General Stated Complaint: Trauma Alert Time Seen by Provider: 04/05/18 22:06 Source: patient Mode of arrival: ambulatory Limitations: altered mental status History of Present Illness HPI narrative: Patient walked into the emergency room and came to the triage with history of right wrist laceration which was accidental after he fell while putting a [place] tree light. Patient had a kitchen towel wrapped around his wrist which was soaked in blood and active blood dripping from it. Patient appears to be in significant distress. He was significantly diaphoretic. Based on his appearance and bleeding a level 1 trauma was called. As patient was getting moved to the stretcher from the wheelchair he passed out. Patient was tachycardic with heart rate in the 140s and blood pressure of 90/40. A level 1 trauma alert was called. Related Data Home Medications Medication Instructions Recorded Confirmed albuterol sulfate [Ventolin HFA] 1 puff INHALATION Q4-6H PRN 04/05/18 04/05/18 amlodipine 5 mg PO DAILY 04/05/18 04/05/18 Allergies Allergy/AdvReac Type Severity Reaction Status Date / Time No Allergy Information Allergy Verified 04/05/18 22:46 Available Review of Systems ROS Unobtainable ROS Unobtainable: unobtainable due to mental status ROS: all other systems reviewed are negative Exam Narrative Exam Narrative: GENERAL: Altered mental status, significant distress SKIN: Pale, cool and diaphoretic HEAD: Atraumatic. Normocephalic. EYES: Pupils equal and round. No scleral icterus. No injection or drainage. ENT: No nasal bleeding or discharge. Mucous membranes pink and moist. NECK: Trachea midline. No JVD. CARDIOVASCULAR: Regular rate and rhythm. No murmur appreciated. RESPIRATORY: No accessory muscle use. Clear to auscultation. Breath sounds equal bilaterally. GASTROINTESTINAL: Abdomen soft, non-tender, nondistended. Hepatic and splenic margins not palpable. MUSCULOSKELETAL: No obvious deformities. No clubbing. No cyanosis. No edema. Right wrist LACERATION LOCATION: With lacerated tendon and severed radial artery with significant arterial bleed. LENGTH: 5 cm NEUROLOGICAL: Awake and alert. No obvious cranial nerve deficits. Motor grossly within normal limits. Normal speech. PSYCHIATRIC: Appropriate mood and affect; insight and judgment normal. Course Initial Documented Vital Signs Pulse Oximetry 98 04/05/18 21:39 Last Documented Vital Signs Pulse Oximetry 98 04/05/18 21:39 Procedures Laceration Laceration 1: Site: upper extremity Side (If applicable): right Size (cm): 5 Description: linear Depth: involves tendon Skin layer closed with: vicryl Size (cm): 3-0 Number of sutures:: 5 Laceration 2: Site: upper extremity Side (If applicable): right Size (cm): 3 Description: linear Depth: simple, single layer, involves muscle layer and involves tendon Anesthetic used: lidocaine 1% Anesthesia technique:: local infiltration Amount (mL): 10 Pre-repair:: wound explored and irrigated extensively Skin layer closed with: prolene Size (cm): 3-0 Number of sutures:: 10 Technique:: running Critical Care Time Critical Care Time: Yes Total Critical Care Time: 45 Attestation: Aggregate critical care time was 45 minutes. Time to perform other separately billable procedures was not included in the critical care time. My time did not include minutes spent treating any other patients simultaneously or on activities that did not directly contribute to the patient's treatment. The services I provided to this patient were to treat and/or prevent clinically significant deterioration that could result in: Arterial bleed, hemorrhagic shock, emergent blood transfusion I provided critical care services requiring my management, as noted below: Chart data review, documentation time, medication orders and management, vital sign assessments/reviewing monitor data, ordering and reviewing lab tests, ordering and interpreting/reviewing x-rays and diagnostic studies, care of the patient and discussion of the patient with the admitting physicians. Medical Decision Making MDM Narrative Medical decision making narrative: 11 PM the radial artery was ligated with a 3- 0 Vicryl at both proximal and distal ends of the laceration to stop it from bleeding. Eventually the bleeding did stop. Dr. Brock from trauma surgery was present and assisted. The case was discussed over the phone with Dr. Lay both by me and Dr. Brock. He was requested to come and see the patient. As per his conversation with Dr. Brock loose approximation of the wound was requested and eventually he would take the patient to the OR and explore and repair of the wound. Patient has been admitted to the ICU under trauma surgery for observation. He was given 2 units of emergency release blood. Patient was resuscitated for hemorrhagic shock. My PA did the rest of the wound repair. Please refer to his procedure note. Medical Screen Exam Complete: Yes Emergency Medical Condition: Yes Lab Data Result diagrams: 04/05/18 21:45 Lab Results 04/05/18 04/05/18 04/05/18 Range/Units 21:45 21:45 21:45 WBC 16.6 H (4.0-11.0) th/mm3 RBC 3.99 L (4.50-5.90) mil/mm3 Hgb 13.0 (13.0-17.0) gm/dL POC Hgb (Calc) 13.3 (13.0-17.0) g/dL Hct 39.4 (39.0-51.0) % POC Hct 39.0 (39-51.0) % MCV 98.6 (80.0-100.0) fL MCH 32.6 (27.0-34.0) pg MCHC 33.1 (32.0-36.0) % RDW 15.4 (11.6-17.2) % Plt Count 202 (150-450) th/mm3 MPV 7.2 (7.0-11.0) fL Prelim Diff (Auto) Slide review pending Neut % (Auto) 55.2 (16.0-70.0) % Lymph % (Auto) 34.5 (9.0-44.0) % [place] % (Auto) 8.4 H (0.0-8.0) % Eos % (Auto) 1.2 (0.0-4.0) % Baso % (Auto) 0.7 (0.0-2.0) % Neut # (Auto) 9.2 H (1.8-7.7) th/mm3 Lymph # (Auto) 5.7 H (1.0-4.8) th/mm3 [place] # (Auto) 1.4 H (0.0-0.9) th/mm3 Eos # (Auto) 0.2 (0.0-0.4) th/mm3 Baso # (Auto) 0.1 (0.0-0.2) th/mm3 WBC Differential Manual diff final Seg Neuts % (Manual) 55 (16-70) % Band Neuts % (Manual) 2 (0-6) % Lymphocytes % (Manual) 38 (9-44) % Monocytes % (Manual) 4 (0-8) % Basophils % (Manual) 1 (0-2) % Abs Neuts (Manual) 9.5 H (1.8-7.7) th/mm3 Differential Comment . Platelet Estimate Normal (Normal) Platelet Morphology Normal (Normal) PT 12.5 H (9.8-11.6) sec INR 1.2 Ratio APTT 26.7 (23.4-31.7) sec POC Sodium 144 (137-144) mmol/L POC Potassium 4.0 (3.6-5.0) mmol/L POC Chloride 110 (102-111) mmol/L POC BUN 9 (5-21) mg/dL POC Creatinine 1.9 H (0.6-1.3) mg/dL POC Glucose 203 H (68-110) mg/dL Blood Type Antibody Screen MTS Gel Crossmatch 04/05/18 Range/Units 21:45 WBC (4.0-11.0) th/mm3 RBC (4.50-5.90) mil/mm3 Hgb (13.0-17.0) gm/dL POC Hgb (Calc) (13.0-17.0) g/dL Hct (39.0-51.0) % POC Hct (39-51.0) % MCV (80.0-100.0) fL MCH (27.0-34.0) pg MCHC (32.0-36.0) % RDW (11.6-17.2) % Plt Count (150-450) th/mm3 MPV (7.0-11.0) fL Prelim Diff (Auto) Neut % (Auto) (16.0-70.0) % Lymph % (Auto) (9.0-44.0) % [place] % (Auto) (0.0-8.0) % Eos % (Auto) (0.0-4.0) % Baso % (Auto) (0.0-2.0) % Neut # (Auto) (1.8-7.7) th/mm3 Lymph # (Auto) (1.0-4.8) th/mm3 [place] # (Auto) (0.0-0.9) th/mm3 Eos # (Auto) (0.0-0.4) th/mm3 Baso # (Auto) (0.0-0.2) th/mm3 WBC Differential Seg Neuts % (Manual) (16-70) % Band Neuts % (Manual) (0-6) % Lymphocytes % (Manual) (9-44) % Monocytes % (Manual) (0-8) % Basophils % (Manual) (0-2) % Abs Neuts (Manual) (1.8-7.7) th/mm3 Differential Comment Platelet Estimate (Normal) Platelet Morphology (Normal) PT (9.8-11.6) sec INR Ratio APTT (23.4-31.7) sec POC Sodium (137-144) mmol/L POC Potassium (3.6-5.0) mmol/L POC Chloride (102-111) mmol/L POC BUN (5-21) mg/dL POC Creatinine (0.6-1.3) mg/dL POC Glucose (68-110) mg/dL Blood Type A Positive Antibody Screen Negative MTS Gel Crossmatch See Detail Imaging Data Radiologist's impression: Wrist X-Ray 04/05/18 00:00 CONCLUSION: 1. Extensive soft tissue laceration involving the wrist without acute fracture. Chest X-Ray 04/05/18 21:44 CONCLUSION: 1. Negative portable chest. Discharge Plan Discharge Disposition Patient Disposition: 30 Still Patient Physicians Team ED Provider: Rl Dawn ED Midlevel Provider: Dennis Reeves Attending Provider: Rivera Brock Other Providers: Vinay Thomas ; Chris Pan ; Systems[facility] ; Chano Peterson ; Beryl Hobson ; Rivera Brock ; Justine Farmer ; Krystian Rand ; Edmund Nash Status ED Status: Admitted Patient
--- NOTE | 2018-04-06 00:24 | MB ---
cc: Meri Lay MD DATE: 04/05/2018 REQUESTING PHYSICIAN: The patient is being seen at the request of Dr. Rivera Brock. REASON FOR CONSULTATION: Right wrist laceration of significance. HISTORY OF PRESENT ILLNESS: The patient is a 52-year-old male who was working on his house with [place] lights. The patient fell and put his hand through a window. The patient had significant blood loss and came into the emergency room and was turned into a trauma code due to the blood loss. The patient had a serious injury to the right upper extremity on the volar surface and the radial artery was pumping a significant amount of blood. The patient was given 2 units of PRBCs. It was noted that the radial artery needed to be tied off and that there were a significant amount of injury to the wrist. Consultation is requested regarding evaluation and treatment of the wound. PAST MEDICAL HISTORY: Significant for asthma, hypertension, hypothyroidism and diabetes. PAST SURGICAL HISTORY: The patient has had surgeries to his right lower extremity, left foot and his left testis. SOCIAL HISTORY: The patient does consume alcoholic and indicates he was drinking alcohol tonight. ALLERGIES: NO KNOWN FOOD OR DRUG ALLERGIES. MEDICATIONS: Listed on the chart. REVIEW OF SYSTEMS: Negative except as noted above. PHYSICAL EXAMINATION: GENERAL: The patient is lying comfortably in bed on the stretcher VITAL SIGNS: On the stretcher, temperature is 97.8, pulse 130, blood pressure is 174/90, respirations 22, saturations 100% on 2 liters of nasal cannula. EYES: His pupils are equal, round and reactive to light. NECK: Supple without masses. LUNGS: Clear. HEART: Regular rate and rhythm. EXTREMITIES: Examination of the right upper extremity reveals a Chevron-shaped approximately base of the flap on the volar surface of the forearm. The wound is explored after being anesthetized and there is obvious injury to the flexor tendons. It appears to be the flexor digitorum superficialis. The patient is able to flex all of his fingers at the tips including the thumb. He does have adequate opposition. He is claiming that he does feel with the tips of his fingers. LABORATORY DATA: His hemoglobin and hematocrit on admission are 13 and 39, platelets of 302. IMPRESSION: The patient has a large laceration of the right forearm with tendon involvement and possible nerve involvement. PLAN: The patient will be admitted having had the wounds closed. Once the patient is stable and his hematocrit stabilized, the patient will be taken to the operating room, I anticipate this will be in the next 2 days, for exploration and treatment of the lacerations. MD AFSHIN Escobar/victor m , 12:00 AM , 12:09 AM
[2018-04-06] MEDS: Docusate Sodium 100 MG Capsule PO SCH ×3 (01:33→21:35)
[2018-04-06] MEDS ORDERED: Chlorhexidine Gluconate 2% 1 Pack (2 Cloths) TOPICAL PRN (04:00)
[2018-04-06 05:52] LABS: Baso % (Auto) 0.5 % (0.0-2.0); Eos % (Auto) 0.3 % (0.0-4.0); Hematocrit 32.8 % (39.0-51.0); Hemoglobin 11.3 gm/dL (13.0-17.0); Lymph # (Auto) 2.2 th/mm3 (1.0-4.8); Lymph % (Auto) 22.5 % (9.0-44.0); Mean Corpuscular HGB Conc 34.4 % (32.0-36.0); Mean Corpuscular Hemoglobin 32.8 pg (27.0-34.0); Mean Corpuscular Volume 95.3 fL (80.0-100.0); Mean Platelet Volume 7.2 fL (7.0-11.0); Mono # (Auto) 0.8 th/mm3 (0.0-0.9); Mono % (Auto) 8.7 % (0.0-8.0); Neut # (Auto) 6.6 th/mm3 (1.8-7.7); Platelet Count 101 th/mm3 (150-450); Red Blood Count 3.44 mil/mm3 (4.50-5.90); Red Cell Distribution Width 16.2 % (11.6-17.2); White Blood Count 9.7 th/mm3 (4.0-11.0)
[2018-04-06] MEDS ORDERED: Dextrose 50% in Water 50 ML Vial IV.PUSH PRN (06:35)
[2018-04-06] MEDS ORDERED: HYDROmorphone PF Inj 0.5 MG/0.5 ML Syringe IV.PUSH PRN (06:37)
[2018-04-06] MEDS: Sodium Chloride 0.9% 2 ML Flush BID IV.FLUSH SCH ×2 (08:27→21:36)
[2018-04-06] MEDS: amLODIPine 5 MG Tablet PO SCH (08:27)
[2018-04-06] MEDS: Pantoprazole Inj 40 MG Vial IV.PUSH SCH (11:09)
[2018-04-06] MEDS: Multivitamin Inj 10 ML, Thiamine Inj 100 MG, Folic Acid Inj 1 MG in Sodium Chlor 0.9% I... IV.SIG SCH (11:09)
[2018-04-06] MEDS: Enoxaparin Inj 30 MG/0.3 ML Syringe SQ SCH (11:10)
[2018-04-06] MEDS: Insulin NovoLOG Aspart Correctional Sugar Inj SQ SCH ×2 (13:12→22:24)
--- NOTE | 2018-04-06 13:17 | P.PNCC ---
Subjective Brief History: 52-year-old male who sustained a complex open wound with injury to the radial artery-patient also sustained injury to the multiple tendons of the right lower extremity-he was in hemorrhagic shock and was successfully stated resuscitated by the trauma team. 24 Hour Review/Hospital Course: 04/06 She is awake alert hemodynamically normal Hemoglobin is within normal level Is good capillary refill of his fingers He is slightly hypertensive and will increase his patient home medication He is overall stable from general trauma standpoint and will transfer him to the regular floor He is scheduled to undergo exploration of his wound with tendon repair by plastic surgery tomorrow Objective Vital Signs / I&O: Vital Signs 04/05/18 21:39 04/06/18 01:12 04/06/18 01:14 Temperature Pulse Rate 113 H 117 H Respiratory Rate 32 H Blood Pressure 142/90 H Pulse Oximetry 98 04/06/18 02:00 04/06/18 02:22 04/06/18 03:00 Temperature Pulse Rate 105 H 100 H 97 H Respiratory Rate 0 L 0 L Blood Pressure Pulse Oximetry 96 97 04/06/18 04:00 04/06/18 08:00 04/06/18 09:00 Temperature 98.2 F Pulse Rate 92 H 92 H Respiratory Rate 20 Blood Pressure 154/85 H Pulse Oximetry 96 96 Intake & Output 04/05/18 04/06/18 04/06/18 18:59 06:59 18:59 Intake Total 50 / 50 Balance 50 / 50 Weight 108.3 kg Intake: IV 50 / 50 Ancef 2 GM Premix Inj 2 gm In 50 / 50 50 ml @ 0 mls/hr IV.SIG .STK- MED ONE Rx#:[id number] Other: Weight On Admission 108.3 kg Result Diagrams: 04/06/18 05:14 Imaging: Impressions Wrist X-Ray 04/05/18 00:00 CONCLUSION: 1. Extensive soft tissue laceration involving the wrist without acute fracture. Chest X-Ray 04/05/18 21:44 CONCLUSION: 1. Negative portable chest. - Exam [employer]ATE: [place] Coma Score is 15 patient is neurologically intact Hemodynamic/Cardiac: Hemodynamically normal Pulmonary/Respiratory: Breath sounds are clear bilateral Abdomen/GI Nutrition: Abdomen is soft and benign patient will be started on a diet Renal/I&O: Adequate urine output Hematologic: hemoGlobin stable after resuscitation Assessment and Plan Plan: Transfer to floor Pain control N.p.o. after midnight for hand surgical exploration tomorrow
[2018-04-06] MEDS: Sod Chloride 0.9% Inj 1,000 ML IV.CONT SCH (16:55)
--- NOTE | 2018-04-06 20:22 | P.PNPLA ---
Subjective Remarks: The patient reports adequate sensation to his hand. Objective Vital Signs: Vital Signs - 24 hr 04/05/18 21:39 04/06/18 01:12 04/06/18 01:14 Temperature Pulse Rate 113 H 117 H Respiratory Rate 32 H Blood Pressure 142/90 H Pulse Oximetry 98 04/06/18 02:00 04/06/18 02:22 04/06/18 03:00 Temperature Pulse Rate 105 H 100 H 97 H Respiratory Rate 0 L 0 L Blood Pressure Pulse Oximetry 96 97 04/06/18 04:00 04/06/18 04:18 04/06/18 05:00 Temperature 98.2 F Pulse Rate 92 H 93 H 98 H Respiratory Rate 20 0 L 0 L Blood Pressure 154/85 H 154/85 H 161/86 H Pulse Oximetry 96 97 97 04/06/18 06:00 04/06/18 07:00 04/06/18 07:49 Temperature Pulse Rate 91 H 86 90 Respiratory Rate 0 L 0 L Blood Pressure 167/81 H 174/91 H 179/92 H Pulse Oximetry 97 97 100 04/06/18 08:00 04/06/18 09:00 04/06/18 09:45 Temperature 98.8 F Pulse Rate 93 H 92 H 98 H Respiratory Rate 28 H 35 H Blood Pressure 174/88 H 189/94 H 170/87 H Pulse Oximetry 96 98 98 04/06/18 10:00 04/06/18 11:00 04/06/18 12:00 Temperature 98.8 F Pulse Rate 93 H 95 H 95 H Respiratory Rate 24 26 H 25 H Blood Pressure 165/86 H 159/89 H 163/87 H Pulse Oximetry 96 97 97 04/06/18 13:00 04/06/18 14:10 04/06/18 15:00 Temperature Pulse Rate 90 97 H 84 Respiratory Rate 22 21 Blood Pressure 159/84 H 159/83 H Pulse Oximetry 97 98 100 04/06/18 15:10 04/06/18 15:13 04/06/18 15:45 Temperature Pulse Rate 99 H 88 80 Respiratory Rate 43 H 44 H 27 H Blood Pressure 204/95 H 184/86 H 172/88 H Pulse Oximetry 98 100 100 04/06/18 16:00 04/06/18 16:12 Temperature 98.3 F Pulse Rate 84 Respiratory Rate 22 Blood Pressure 171/91 H Pulse Oximetry 99 97 Intake & Output 04/04/18 04/05/18 04/06/18 04/07/18 06:59 06:59 06:59 06:59 Intake Total 880 / 880 Balance 880 / 880 Weight 108.3 kg Laboratory Results: Laboratory Results - last 24 hr 04/05/18 04/05/18 04/05/18 21:45 21:45 21:45 WBC 16.6 H RBC 3.99 L Hgb 13.0 POC Hgb (Calc) 13.3 Hct 39.4 POC Hct 39.0 MCV 98.6 MCH 32.6 MCHC 33.1 RDW 15.4 Plt Count 202 MPV 7.2 Prelim Diff (Auto) Slide review pending Neut % (Auto) 55.2 Lymph % (Auto) 34.5 Frio % (Auto) 8.4 H Eos % (Auto) 1.2 Baso % (Auto) 0.7 Neut # (Auto) 9.2 H Lymph # (Auto) 5.7 H Frio # (Auto) 1.4 H Eos # (Auto) 0.2 Baso # (Auto) 0.1 WBC Differential Manual diff final Seg Neuts % (Manual) 55 Band Neuts % (Manual) 2 Lymphocytes % (Manual) 38 Monocytes % (Manual) 4 Basophils % (Manual) 1 Abs Neuts (Manual) 9.5 H Differential Comment . Platelet Estimate Normal Platelet Morphology Normal PT 12.5 H INR 1.2 APTT 26.7 POC Sodium 144 POC Potassium 4.0 POC Chloride 110 POC BUN 9 POC Creatinine 1.9 H POC Glucose 203 H Nasal Screen MRSA (PCR) Blood Type Antibody Screen MTS Gel Crossmatch 04/05/18 04/06/18 04/06/18 21:45 01:20 05:14 WBC 9.7 RBC 3.44 L Hgb 11.3 L POC Hgb (Calc) Hct 32.8 L POC Hct MCV 95.3 MCH 32.8 MCHC 34.4 RDW 16.2 Plt Count 101 L D MPV 7.2 Prelim Diff (Auto) Neut % (Auto) 68.0 Lymph % (Auto) 22.5 Frio % (Auto) 8.7 H Eos % (Auto) 0.3 Baso % (Auto) 0.5 Neut # (Auto) 6.6 Lymph # (Auto) 2.2 Frio # (Auto) 0.8 Eos # (Auto) 0.0 Baso # (Auto) 0.0 WBC Differential . Seg Neuts % (Manual) Band Neuts % (Manual) Lymphocytes % (Manual) Monocytes % (Manual) Basophils % (Manual) Abs Neuts (Manual) Differential Comment Auto diff final Platelet Estimate Platelet Morphology PT INR APTT POC Sodium POC Potassium POC Chloride POC BUN POC Creatinine POC Glucose Nasal Screen MRSA (PCR) Mrsa detected Blood Type A Positive Antibody Screen Negative MTS Gel Crossmatch See Detail 04/06/18 04/06/18 04/06/18 08:21 13:06 17:42 WBC RBC Hgb POC Hgb (Calc) Hct POC Hct MCV MCH MCHC RDW Plt Count MPV Prelim Diff (Auto) Neut % (Auto) Lymph % (Auto) Frio % (Auto) Eos % (Auto) Baso % (Auto) Neut # (Auto) Lymph # (Auto) Frio # (Auto) Eos # (Auto) Baso # (Auto) WBC Differential Seg Neuts % (Manual) Band Neuts % (Manual) Lymphocytes % (Manual) Monocytes % (Manual) Basophils % (Manual) Abs Neuts (Manual) Differential Comment Platelet Estimate Platelet Morphology PT INR APTT POC Sodium POC Potassium POC Chloride POC BUN POC Creatinine POC Glucose 123 H 139 H 149 H Nasal Screen MRSA (PCR) Blood Type Antibody Screen MTS Gel Crossmatch Result Diagrams: 04/06/18 05:14 Exam Findings: The patient's two-point discrimination is within normal limits to all fingers. Fingers are warm and well perfused. Assessment and Plan - Plan Impression: The patient is lacerated tendons to his right forearm. Plan: The patient is scheduled to go to the operating room tomorrow afternoon for repair of the tendons of his right forearm. He understands and accepts the risks and complications of the surgery.
[2018-04-06] MEDS: Mupirocin 2% Nasal Oint Topical Syringe EACH NARE SCH (21:36)
[2018-04-07] MEDS: Enoxaparin Inj 30 MG/0.3 ML Syringe SQ SCH (00:30)
[2018-04-07] MEDS: Chlorhexidine Gluconate 2% 1 Pack (2 Cloths) TOPICAL SCH (04:38)
[2018-04-07 05:13] LABS: Baso % (Auto) 0.4 % (0.0-2.0); Eos % (Auto) 0.7 % (0.0-4.0); Hematocrit 28.2 % (39.0-51.0); Hemoglobin 9.7 gm/dL (13.0-17.0); Lymph # (Auto) 1.6 th/mm3 (1.0-4.8); Lymph % (Auto) 26.5 % (9.0-44.0); Mean Corpuscular HGB Conc 34.2 % (32.0-36.0); Mean Corpuscular Hemoglobin 32.5 pg (27.0-34.0); Mean Platelet Volume 7.3 fL (7.0-11.0); Mono # (Auto) 0.7 th/mm3 (0.0-0.9); Mono % (Auto) 10.9 % (0.0-8.0); Neut # (Auto) 3.7 th/mm3 (1.8-7.7); Neut % (Auto) 61.5 % (16.0-70.0); Platelet Count 55 th/mm3 (150-450); Red Blood Count 2.97 mil/mm3 (4.50-5.90); Red Cell Distribution Width 15.6 % (11.6-17.2)
[2018-04-07 05:36] LABS: Alanine Aminotransferase 46 U/L (12-78); Albumin 2.8 g/dL (3.4-5.0); Anion Gap 6 meq/L (5-15); Aspartate Aminotransferase 53 U/L (15-37); Blood Urea Nitrogen 14 mg/dL (7-18); Calcium 7.5 mg/dL (8.5-10.1); Carbon Dioxide 27.3 meq/L (21.0-32.0); Chloride 107 meq/L (98-107); Glomerular Filtration Rate 62 mL/min (>89); Glucose,Random 126 mg/dL (74-106); Potassium 4.1 meq/L (3.5-5.1); Sodium 140 meq/L (136-145)
[2018-04-07 05:38] LABS: Alkaline Phosphatase 115 U/L (45-117); Total Protein 6.4 g/dL (6.4-8.2)
[2018-04-07 07:13] LABS: Platelet Morphology Normal (Normal)
[2018-04-07] MEDS: Multivitamin Inj 10 ML, Thiamine Inj 100 MG, Folic Acid Inj 1 MG in Sodium Chlor 0.9% I... IV.SIG SCH (08:17)
[2018-04-07] MEDS: Mupirocin 2% Nasal Oint Topical Syringe EACH NARE SCH ×3 (08:47→22:13)
[2018-04-07] MEDS: Insulin NovoLOG Aspart Correctional Sugar Inj SQ SCH ×5 (09:00→21:51)
[2018-04-07] MEDS: Pantoprazole Inj 40 MG Vial IV.PUSH SCH (09:19)
[2018-04-07] MEDS: amLODIPine 5 MG Tablet PO SCH (09:53)
[2018-04-07] MEDS: Docusate Sodium 100 MG Capsule PO SCH ×2 (09:54→21:52)
[2018-04-07] MEDS: Sodium Chloride 0.9% 2 ML Flush BID IV.FLUSH SCH ×2 (12:22→21:52)
--- NOTE | 2018-04-07 12:24 | P.PNCC ---
Subjective Brief History: 52-year-old male who sustained a complex open wound with injury to the radial artery-patient also sustained injury to the multiple tendons of the right lower extremity-he was in hemorrhagic shock and was successfully stated resuscitated by the trauma team. 24 Hour Review/Hospital Course: 04/06 She is awake alert hemodynamically normal Hemoglobin is within normal level Is good capillary refill of his fingers He is slightly hypertensive and will increase his patient home medication He is overall stable from general trauma standpoint and will transfer him to the regular floor He is scheduled to undergo exploration of his wound with tendon repair by plastic surgery tomorrow 04/07 Patient is scheduled to go to the OR with the hand surgeon today He is hemodynamically normal with slight hypertension neurologically intact Good capillary refill of his fingers He was noted to have low platelet count with 55 today yesterday his platelet count was 110 patient received Lovenox so that we need to alter H IT We will need to hold all heparin products until the test results come back. Patient will be transferred to the PACU and then to the floor Objective Vital Signs / I&O: Vital Signs 04/06/18 13:00 04/06/18 14:10 04/06/18 15:00 Temperature Pulse Rate 90 97 H 84 Respiratory Rate 22 21 Blood Pressure 159/84 H 159/83 H Pulse Oximetry 97 98 100 04/06/18 15:10 04/06/18 15:13 04/06/18 15:45 Temperature Pulse Rate 99 H 88 80 Respiratory Rate 43 H 44 H 27 H Blood Pressure 204/95 H 184/86 H 172/88 H Pulse Oximetry 98 100 100 04/06/18 16:00 04/06/18 16:12 04/06/18 20:00 Temperature 98.3 F 98.5 F Pulse Rate 84 96 H Respiratory Rate 22 31 H Blood Pressure 171/91 H 154/84 H Pulse Oximetry 99 97 97 04/06/18 21:03 04/07/18 00:00 04/07/18 04:00 Temperature 98.4 F 99.2 F Pulse Rate 82 87 Respiratory Rate 21 22 Blood Pressure 149/74 H 154/82 H Pulse Oximetry 99 100 100 04/07/18 05:00 04/07/18 06:00 04/07/18 07:04 Temperature Pulse Rate 86 80 105 H Respiratory Rate 48 H 20 Blood Pressure 149/88 H 162/78 H Pulse Oximetry 100 98 92 L 04/07/18 08:00 04/07/18 09:00 04/07/18 10:00 Temperature 98.7 F Pulse Rate 102 H 90 90 Respiratory Rate 43 H 26 H 23 Blood Pressure 164/86 H 145/79 H 147/79 H Pulse Oximetry 97 99 97 04/07/18 11:00 04/07/18 12:00 Temperature Pulse Rate 100 H 91 H Respiratory Rate 24 26 H Blood Pressure 145/78 H 138/74 Pulse Oximetry Intake & Output 04/06/18 04/07/18 04/07/18 18:59 06:59 18:59 Intake Total 511.2 / 511.2 880 / 880 Balance 511.2 / 511.2 880 / 880 Intake: IV 511.2 / 511.2 MVI-12 Inj 10 ML Thiamine Inj 511.2 / 511.2 100 MG Folvite Inj 1 MG In NS Inj 500 ML @ 127.8 mls/hr IV. SIG DAILY GINA Rx#:[id number] Oral 880 / 880 Other: # Voids 3 Date of Last Bowel Movement 04/06/18 04/07/18 04/07/18 # Bowel Movements 1 Result Diagrams: 04/07/18 05:01 04/07/18 05:01 - Exam FUSE CUTTER: g coma score is 15 Hemodynamic/Cardiac: Hemodynamically normal with mild hypertension Pulmonary/Respiratory: Breath sounds are clear bilateral Abdomen/GI Nutrition: Abdomen soft mildly obese Hematologic: This 55 down from 110 Assessment and Plan Plan: Transfer to floor postop Pain control Hold all heparin products until H IT test is back Follow-up platelet count
--- NOTE | 2018-04-07 13:27 | ECG ---
Date Performed: 04/07/2018 Time Performed: 09:35:44 PTAGE: 52 years EKG: Sinus rhythm . Normal ECG NO PREVIOUS TRACING DOCTOR: Tee Magallanes Interpretating Date/Time 04/07/2018 13:26:34
[2018-04-07] MEDS ORDERED: ceFAZolin 1 GM Premix Inj 1 GM/50 ML FROZ.PIGGY IV.SIG ONE ×2 (14:34→15:10)
[2018-04-07] MEDS ORDERED: Lidocaine 2% Inj 50 ML Vial ONE (14:34)
[2018-04-07] MEDS ORDERED: Bupivacaine PF 0.5% Inj 30 ML Vial ONE (14:34)
[2018-04-07] MEDS ORDERED: Morphine Inj 4 MG/ML Vial ONE (17:09)
[2018-04-07] MEDS ORDERED: fentaNYL Citrate Inj 100 MCG/2 ML Ampul ONE (17:10)
--- NOTE | 2018-04-07 17:33 | P.BOP ---
- Preoperative Diagnosis (1) Tendon laceration - Postoperative Diagnosis (1) Tendon laceration Date of procedure: 04/07/18 Procedure: Repair of the right FDS to the index, middle, ring and little fingers. Repair of the right Abductor pollicis longus. Repair right FCU. Anesthesia: GETA Surgeon: Meri Lay MD Tourniquet time (min): 82 Pathology: none sent Condition: stable Disposition: PACU
--- NOTE | 2018-04-07 19:06 | MP ---
cc: Meri Lay MD DATE OF OPERATION: 04/07/2018 PREOPERATIVE DIAGNOSIS: Lacerated flexor tendons of the right upper extremity. POSTOPERATIVE DIAGNOSIS: Lacerated flexor tendons of the right upper extremity. PROCEDURE: 1. Repair of the flexor digitorum superficialis to the right index finger. 2. Repair of the flexor digitorum superficialis to the right middle finger. 3. Repair of the flexor digitorum superficialis to the right ring finger. 4. Repair of the flexor digitorum superficialis to the right fifth finger. 5. Repair of the right abductor pollicis longus. 6. Repair of the right flexor carpi ulnaris. ANESTHESIA: General. SURGEON: Meri Lay MD INDICATIONS: A 52-year-old male who injured his arm approximately 36 hours ago. The patient came in having had significant blood loss. He was admitted to the intensive care unit. The patient was taken to the operating room today for exploration and repair. Preoperatively it was noted that the nerves to the hand were not involved, as he had full sensation to all of his fingers and full use. This was confirmed during the procedure. TOURNIQUET TIME: 82 minutes. DESCRIPTION OF PROCEDURE: The patient was seen preoperatively where the site and side were identified and marked. The patient was then taken to the operating room and placed in a supine position. His identity was checked against the armband and form signed, and site confirmed. Timeout was called prior to beginning the procedure. The right upper extremity was prepped with Hibiclens and draped in the usual sterile fashion. The arm was then exsanguinated and tourniquet inflated to 250 mmHg. All the sutures on the palmar aspect as well as over the first dorsal compartment were removed. Wounds were irrigated and investigated. Attention was first turned to the first dorsal compartment where it was noted that the abductor pollicis longus was completely lacerated. There was a partial laceration to the extensor pollicis brevis. This was debrided as it was only a small portion of the tendon. The tendon was repaired by placing a modified Hicks suture in the proximal and distal ends of the cut tendon and tying them. Attention was turned to the palmar aspect of the forearm where the lacerations occurred. All of the tendons of the flexor digitorum superficialis were lacerated. The fascia of the flexor digitorum profundus was not entered and the tendons were found to be intact. The flexor carpi ulnaris was almost completely lacerated but the neurovascular bundle on the ulnar side was intact. The flexor carpi radialis was also cut, but was unable to be repaired as it had a static contracture to it at this point, as there was too much tension. After all these tendons were isolated, sutures were placed in a modified Hicks stitch, this was in the proximal and distal flexor digitorum superficialis slips to the index, middle, ring, and 5th fingers. After the sutures were placed, the wrist was flexed and the tendons were tied to each other. The flexor carpi ulnaris was then repaired with several sutures of 2-0 Ethibond. The wound was copiously irrigated with saline and then closed with running 4-0 nylon. Once the wound was closed, the tourniquet was released after 82 minutes of tourniquet time. Pressure was applied. After several minutes, there was no evidence of any oozing. Dressing was applied using povidone iodine solution, Adaptic, Telfa, 4 x 4's, hand wrap, and a thumb spica splint as well as a dorsal splint from the fingertips to below the elbow. The patient was then taken from the operating room to the recovery room in satisfactory condition, having tolerated the procedure well. Of note is that bupivacaine 0.5% plain was injected into all the operative areas for postoperative pain control. MD AFSHIN Escobar/papo , 05:41 PM , 05:52 PM
[2018-04-07] MEDS ORDERED: LORazepam 1 MG Tablet PO PRN (20:39)
[2018-04-08 07:21] LABS: Baso % (Auto) 0.3 % (0.0-2.0); Eos % (Auto) 0.6 % (0.0-4.0); Hematocrit 26.6 % (39.0-51.0); Lymph # (Auto) 1.2 th/mm3 (1.0-4.8); Lymph % (Auto) 25.3 % (9.0-44.0); Mean Corpuscular Hemoglobin 32.8 pg (27.0-34.0); Mean Corpuscular Volume 96.4 fL (80.0-100.0); Mean Platelet Volume 7.9 fL (7.0-11.0); Mono # (Auto) 0.5 th/mm3 (0.0-0.9); Neut % (Auto) 62.8 % (16.0-70.0); Platelet Count 50 th/mm3 (150-450); Red Blood Count 2.76 mil/mm3 (4.50-5.90); Red Cell Distribution Width 15.3 % (11.6-17.2); White Blood Count 4.8 th/mm3 (4.0-11.0)
[2018-04-08 07:28] LABS: Albumin 2.6 g/dL (3.4-5.0); Calcium 7.3 mg/dL (8.5-10.1); Carbon Dioxide 27.3 meq/L (21.0-32.0); Potassium 3.9 meq/L (3.5-5.1); Total Protein 6.3 g/dL (6.4-8.2)
[2018-04-08] MEDS: Chlorhexidine Gluconate 2% 1 Pack (2 Cloths) TOPICAL SCH (07:34)
--- NOTE | 2018-04-08 08:19 | P.DS ---
Date of admission: 04/05/18 22:16 Primary care physician: UNKNOWN Attending physician on discharge: Edmund Nash Anticipated date of discharge: 04/08/18 Brief History from admission: Fall. DS: Diagnosis - Discharge Diagnosis (1) Tendon laceration Status: Acute DS: Medications - Discharge Medications Prescriptions: hydrocodone-acetaminophen 1 tab PO Q4H PRN 3 Days #18 tab PRN Reason: Pain DS: Summary Hospital Course: [facility]: This is a 52-year-old male who sustained a mechanical fall. He was standing on a 4 foot stool, and then fell through a window while putting up Sionex lights. Right wrist laceration. He walked into the ED. He had significant blood loss as he was diaphoretic, tachycardic and hypotensive. GCS 14, however he lost consciousness upon transfer to the ED stretcher. PRBC x2. + ETOH. INJURIES: Right upper extremity laceration (5, 10 sutures) Arterial bleed Hemorrhagic shock PMHx: Asthma. HTN. Hypothyroidism. DM. ETOH. Orthopedic surgeries -right and left lower extremity. Left testis surgery. Procedures: 04/05: RIGHT Radial artery ligation in ED 04/07: Repair of the RIGHT FDS to the index, middle, ring and little fingers. Repair of the right Abductor pollicis longus. Repair right FCU. Consults: Hand surgery. Case management. The patient really wants to go home today. The patient is now tolerating a po diet. Eating and drinking well. Pain is being managed well with PO pain medications, and patient is being a provided with a script for pain meds upon discharge. [This patient will be prescribed narcotic pain medications due to his traumatic injuries. The patient has a normal physiological response to severe traumatic injuries and surgery. He will need acute pain management with prescribed narcotic treatment. The [email or web address] prescription drug monitoring program database has been queried.] (NO driving while taking narcotic pain medication enforced to patient.) Pt is having regular bowel movements, and have recommended to patient to continue with stool softeners while taking narcotic pain medications to prevent constipation. Pt has been participating in PT and OT while admitted at [facility] and has been ambulating with their assistance and independently. No home needs noted. All follow up appointments have been provided and discussed with the patient. It is recommended that the patient keeps all his follow up appointments for continued recovery. Patient's condition and plan of care discussed with collaborating trauma surgeon. He is agreeable to plan for discharge today. Therefore, the patient is stable to be safely discharged home from a trauma surgery standpoint. Thank you for allowing us to participate in his care. We wish Reji the best in his recovery. Right upper extremity laceration (5, 10 sutures) Arterial bleed Hemorrhagic shock Supportive care Hand surgery consulted and assisting in management and care 04/05: RIGHT Radial artery ligation in ED 04/07: Repair of the RIGHT FDS to the index, middle, ring and little fingers. Repair of the right Abductor pollicis longus. Repair right FCU. Pain management Trend H&H H&H = 9.0 / 26 Does not meet transfusion triggers at this time No signs of bleeding Encourage out of bed PT and OT ordered Weightbearing status per Dr. Lay Bowel regimen SCDs for DVT prophylaxis DM HTN Hypothyroidism Asthma EtOH Vital signs every 4 hours and as needed Resume home medications Norvasc 5 mg daily SSI q 4h Diabetic diet Resumed home albuterol inhaler Encourage out of bed PT and OT ordered Monitor for signs and symptoms of withdrawal MVI times 3 days CIWA if needed - Time Spent with Patient Total time spent providing and/or coordinating discharge services: Greater than 30 minutes - Quality: VTE Deep Vein Thrombosis/Pulmonary Embolism Present on Admission: No Exam Vital signs: Vital Signs 04/07/18 09:00 04/07/18 10:00 04/07/18 11:00 Temperature Pulse Rate 90 90 100 H Respiratory Rate 26 H 23 24 Blood Pressure 145/79 H 147/79 H 145/78 H Pulse Oximetry 99 97 04/07/18 12:00 04/07/18 14:45 04/07/18 17:25 Temperature 98.4 F 98.0 F Pulse Rate 91 H 91 H 107 H Respiratory Rate 26 H 20 16 Blood Pressure 138/74 160/81 H 169/78 H Pulse Oximetry 96 87 L 04/07/18 17:40 04/07/18 17:55 04/07/18 18:09 Temperature 97.5 F L Pulse Rate 95 H 92 H 84 Respiratory Rate 18 18 20 Blood Pressure 161/75 H 161/76 H 158/72 H Pulse Oximetry 93 L 100 100 04/07/18 19:00 04/07/18 20:00 04/08/18 00:00 Temperature 97.3 F L 97.5 F L 97.7 F Pulse Rate 81 81 80 Respiratory Rate 22 20 18 Blood Pressure 171/82 H 148/87 H 126/68 Pulse Oximetry 98 95 98 04/08/18 04:00 04/08/18 08:00 Temperature 97.6 F 97.7 F Pulse Rate 81 78 Respiratory Rate 18 17 Blood Pressure 139/85 148/70 H Pulse Oximetry 94 L 96 Intake & Output 04/07/18 04/08/18 04/08/18 18:59 06:59 18:59 Intake Total 800 / 800 511.2 / 511.2 Output Total 300 / 300 Balance 800 / 800 -300 / -300 511.2 / 511.2 Intake: IV 100 / 100 511.2 / 511.2 MVI-12 Inj 10 ML Thiamine Inj 511.2 / 511.2 100 MG Folvite Inj 1 MG In NS Inj 500 ML @ 127.8 mls/hr IV. SIG DAILY [facility] Rx#:[id number] Ancef 1 GM Premix Inj 1 gm In 100 / 100 50 ml @ 0 mls/hr IV.SIG .STK- [facility] Rx#:[id number] Oral 0 / 0 Anesthesia Amount 700 / 700 Output: Urine 300 / 300 Other: # Voids 3 Date of Last Bowel Movement 04/07/18 Narrative: GENERAL: This is a 52-year-old male sitting up in bed. No distress noted. SKIN: Warm and dry. HEAD: Atraumatic. Normocephalic. EYES: PERRLA ENT: No nasal bleeding or discharge. Mucous membranes pink and moist. NECK: Trachea midline. No JVD. CARDIOVASCULAR: Regular rate and rhythm. RESPIRATORY: No accessory muscle use. Lungs are clear to auscultation. Breath sounds equal bilaterally. No distress or dyspnea. GASTROINTESTINAL: BS + x 4 quads. Abdomen soft, non-tender, nondistended. MUSCULOSKELETAL: Extremities without cyanosis, or edema. Right upper extremity dressing in place and wrapped in Nile bandage. + peripheral pulses x 4 extremities. Warm with good capillary refill and sensation. MAEW. NEUROLOGICAL: Awake and alert. Normal speech and pattern. Results Procedures completed during hospitalization: . Labs on day of discharge: Labs from last 24 hours 04/08/18 04/08/18 04/07/18 05:10 05:10 21:45 WBC 4.8 RBC 2.76 L Hgb 9.0 L Hct 26.6 L MCV 96.4 MCH 32.8 MCHC 34.0 RDW 15.3 Plt Count 50 L MPV 7.9 Prelim Diff (Auto) Loss Prevention/Safety District Manager Neut % (Auto) 62.8 Lymph % (Auto) 25.3 [place] % (Auto) 11.0 H Eos % (Auto) 0.6 Baso % (Auto) 0.3 Neut # (Auto) 3.0 Lymph # (Auto) 1.2 [place] # (Auto) 0.5 Eos # (Auto) 0.0 Baso # (Auto) 0.0 WBC Differential . Differential Comment Auto diff final Sodium 140 Potassium 3.9 Chloride 106 Carbon Dioxide 27.3 Anion Gap 7 BUN 12 Creatinine 1.09 Estimated GFR 71 L POC Glucose 181 H Random Glucose 107 H Calcium 7.3 L* Calcium Adj for Albumin 8.4 L Total Bilirubin 0.7 AST 42 H ALT 36 Alkaline Phosphatase 107 Total Protein 6.3 L Albumin 2.6 L Heparin Dep Plt Ab OD Hep-Induced Plt Ab Afshan 04/07/18 04/07/18 04/07/18 17:30 12:33 11:42 WBC RBC Hgb Hct MCV MCH MCHC RDW Plt Count MPV Prelim Diff (Auto) Neut % (Auto) Lymph % (Auto) [place] % (Auto) Eos % (Auto) Baso % (Auto) Neut # (Auto) Lymph # (Auto) [place] # (Auto) Eos # (Auto) Baso # (Auto) WBC Differential Differential Comment Sodium Potassium Chloride Carbon Dioxide Anion Gap BUN Creatinine Estimated GFR POC Glucose 139 H 144 H Random Glucose Calcium Calcium Adj for Albumin Total Bilirubin AST ALT Alkaline Phosphatase Total Protein Albumin Heparin Dep Plt Ab OD Pending Hep-Induced Plt Ab Afshan Pending 04/07/18 09:24 WBC RBC Hgb Hct MCV MCH MCHC RDW Plt Count MPV Prelim Diff (Auto) Neut % (Auto) Lymph % (Auto) [place] % (Auto) Eos % (Auto) Baso % (Auto) Neut # (Auto) Lymph # (Auto) [place] # (Auto) Eos # (Auto) Baso # (Auto) WBC Differential Differential Comment Sodium Potassium Chloride Carbon Dioxide Anion Gap BUN Creatinine Estimated GFR POC Glucose 146 H Random Glucose Calcium Calcium Adj for Albumin Total Bilirubin AST ALT Alkaline Phosphatase Total Protein Albumin Heparin Dep Plt Ab OD Hep-Induced Plt Ab Afshan - Impressions ITS Impressions Wrist X-Ray 04/05/18 00:00 CONCLUSION: 1. Extensive soft tissue laceration involving the wrist without acute fracture. Chest X-Ray 04/05/18 21:44 CONCLUSION: 1. Negative portable chest. Discharge Plan - Discharge Disposition Patient Disposition: Discharge Home - Discharge Condition Condition: Stable - Discharge Order Discharge Orders: Discharge Order (Routine); Ordered 04/08/18 Ordered By: Beryl Hobson Hand Surgery Clear for Discharge (Routine); Ordered 04/08/18 Ordered By: Meri Lay - Discharge Details Anticipated Discharge Date: 04/08/18 - Physicians Team Primary Care Provider: UNKNOWN, Attending Provider: Rivera Brock Other Providers: Vinay Thomas MD ; Chris Pan MD ; [employer] [employer] ; Chano Peterson MD ; Beryl Hobson ARNP ; Rivera Brock MD ; Justine Farmer MD ; Krystian Rand ARNP ; Edmund Nash MD ; Meri Lay MD
[2018-04-08] MEDS: Docusate Sodium 100 MG Capsule PO SCH (09:29)
[2018-04-08] MEDS: amLODIPine 5 MG Tablet PO SCH (09:29)
[2018-04-08] MEDS: Mupirocin 2% Nasal Oint Topical Syringe EACH NARE SCH (09:30)
[2018-04-08] MEDS: Insulin NovoLOG Aspart Correctional Sugar Inj SQ SCH ×3 (09:30→20:28)
[2018-04-08] MEDS: Sodium Chloride 0.9% 2 ML Flush BID IV.FLUSH SCH (09:31)
[2018-04-08] MEDS: Pantoprazole Inj 40 MG Vial IV.PUSH SCH (09:42)
[2018-04-08] MEDS: Multivitamin Inj 10 ML, Thiamine Inj 100 MG, Folic Acid Inj 1 MG in Sodium Chlor 0.9% I... IV.SIG SCH (09:46)
== END 2018-04-08 16:59 | disposition home or self-care (01) ==
LOC: NEPI 21:39 → EDBD 22:16 → NEDA 22:16 → MERGE 22:16 → N03 04-06 01:10 → N06 04-07 15:39 → N05 04-07 18:39
PROVIDERS: ADMIT Surgery; ATTEND Surgery